=== PATIENT | male | born 1960 | race Caucasian/White ===

== ENCOUNTER 2016-12-02 08:24 | Observation (INO) | payer OTHER ==
[2016-12-02] VITALS (12 sets, daily range): BP systolic 119–136; BP diastolic 76–96
[~2016-12-02] VITALS: Ht 177.8 cm; Wt 56.4 kg
[~2016-12-02 08:24] MED LIST: ASPI-983 PO; ASPI325T32 PO; ATOR80TA76 PO; CLOP75TA28 PO; LISI-556 PO; NAPR-243 PO; OMG1KC PO; PANT40TA3 PO; TRM50T PO
[2016-12-02] MEDS ORDERED: NS IV 1000 ML 1,000 ML IV ONE (08:40)
[2016-12-02 08:45] LABS: BASOPHILS % (AUTO) 0 % (0-10); EOSINOPHILS # (AUTO) 0.4 10^3/uL (0.0-0.3); EOSINOPHILS % (AUTO) 4 % (0-10); LYMPHOCYTES # (AUTO) 1.2 X 10^3 (1.0-4.0); LYMPHOCYTES % (AUTO) 12 % (12-44); MEAN CORPUSCULAR HEMOGLOBIN 31 PG (25-34); MEAN CORPUSCULAR HGB CONC 34 G/DL (32-36); MEAN CORPUSCULAR VOLUME 92 FL (80-99); MEAN PLATELET VOLUME 9.4 FL (7.4-10.4); MONOCYTES # (AUTO) 0.8 X 10^3 (0.0-1.0); MONOCYTES % (AUTO) 7 % (0-12); NEUTROPHILS # (AUTO) 7.8 X 10^3 (1.8-7.8); NEUTROPHILS % (AUTO) 76 % (42-75); PLATELET COUNT 230 10^3/uL (130-400); RED BLOOD COUNT 4.94 10^6/uL (4.35-5.85); RED CELL DISTRIBUTION WIDTH 14.8 % (10.0-14.5); WHITE BLOOD COUNT 10.2 10^3/uL (4.3-11.0)
[2016-12-02] MEDS ORDERED: ASPIRIN 81 MG CHEW (CHILDREN'S ASA) PO ONE (08:45)
[2016-12-02] MEDS ORDERED: RX-NITROGLYCERIN 0.4 MG TAB BTL 25'S SL PRN (08:45)
[2016-12-02] MEDS ORDERED: ONDANSETRON 4 MG/2 ML (SDV) Z0FRAN IVP ONE (08:45)
[2016-12-02 09:02] LABS: INR 0.9 (0.8-1.4); PROTHROMBIN TIME PATIENT 12.2 SEC (12.2-14.7)
--- NOTE | 2016-12-02 09:05 | Diagnostic Imaging Report ---
INDICATION: Patient is having similar symptoms to a year ago when he had a heart attack. Comparison study: Chest from 11/19/2015. FINDINGS: Frontal view of the chest demonstrates the lungs to be clear but hyperinflated. Heart size and vascularity are normal. There are no pleural effusions. A coronary artery stent is in place. IMPRESSION: Hyperinflation. Dictated by: Dictated on workstation # [id number]
[2016-12-02 09:08] LABS: ALANINE AMINOTRANSFERASE 11 U/L (0-55); ALBUMIN 4.7 GM/DL (3.2-4.5); ANION GAP 12 MMOL/L (5-14); ASPARTATE AMINO TRANSFERASE 23 U/L (5-34); BILIRUBIN,TOTAL 0.6 MG/DL (0.1-1.0); BLOOD UREA NITROGEN 13 MG/DL (7-18); BUN/CREATININE RATIO 16; CALCIUM 9.9 MG/DL (8.5-10.1); CARBON DIOXIDE 21 MMOL/L (21-32); CHLORIDE 108 MMOL/L (98-107); CREATININE SERUM 0.83 MG/DL (0.60-1.30); GFR ESTIMATED > 60; GLUCOSE 101 MG/DL (70-105); MAGNESIUM 2.1 MG/DL (1.8-2.4); POTASSIUM 4.5 MMOL/L (3.6-5.0); SODIUM 141 MMOL/L (135-145); TOTAL PROTEIN 8.2 GM/DL (6.4-8.2)
[2016-12-02 09:17] LABS: MYOGLOBIN SERUM 28.4 NG/ML (10.0-92.0)
--- NOTE | 2016-12-02 10:33 | ED Chest Pain ---
General Chief Complaint: Chest Pain Stated Complaint: CHEST PAINS Nursing Triage Note: CHEST PAIN OFF AND ON SINCE FRIDAY, MORE CONSISTENT TODAY FOLLOWED BY CHRISTOFERD THIS AM. Nursing Sepsis Screen: No Definite Risk Source: patient, old records Exam Limitations: no limitations History of Present Illness Time seen by provider: 08:30 Initial Comments This 56-year-old gentleman with known coronary artery disease presents to the emergency room with complaints of left-sided sharp chest pain since last . He can identify no significant exacerbating or alleviating factors other than aspirin seems to improve the pain. This morning he also developed shortness of breath. He also woke this morning with nausea, vomiting, and diarrhea. He rates his chest pain is 8/10 at this time. His reports that he has missed some of his Plavix doses. He admits to missing a couple of doses over the last week. Patient also admits to drinking alcohol daily up to about 6 beers. Patient had a stent placed to the LAD one year ago by Dr. Silveira. He also had stenosis noted in the left circumflex artery. Patient is a smoker. Allergies and Home Medications Allergies Coded Allergies: No Known Drug Allergies (Unverified , 04/14/11) Home Medications Aspirin 81 Mg Tablet., 81 MG PO DAILY, #100 Ref 4 Prescribed by: BENNY SILVEIRA on 11/21/15 0743 Atorvastatin Calcium 80 Mg Tablet, 40 MG PO HS, #30 Ref 4 Prescribed by: BENNY SILVEIRA on 11/21/15 0743 Clopidogrel Bisulfate 75 Mg Tablet, 75 MG PO DAILY, #90 Ref 4 Prescribed by: BENNY SILVEIRA on 11/21/15 0743 Lisinopril 5 Mg Tablet, 5 MG PO DAILY, #30 Ref 4 Prescribed by: BENNY SILVEIRA on 11/21/15 0743 [place] 3 Polyunsat Fatty Acids 1,000 Mg Cap, 1,000 MG PO BID WITH MEALS, #100 Ref 4 Prescribed by: BENNY SILVEIRA on 11/21/15 0743 Pantoprazole Sodium 40 Mg Tablet., 40 MG PO DAILY@0700, #30 Ref 4 Prescribed by: BENNY SILVEIRA on 11/21/15 0743 Review of Systems Constitutional: no symptoms reported EENTM: No Symptoms Reported Respiratory: See HPI Cardiovascular: See HPI Gastrointestinal: See HPI Genitourinary: No Symptoms Reported Musculoskeletal: no symptoms reported Skin: no symptoms reported Psychiatric/Neurological: No Symptoms Reported Endocrine: No Symptoms Reported Past Rhocnmo-Lumjks-Jeoker Hx Patient Social History Alcohol Use: Regular Use Number of Drinks Today: AA Alcohol Beverage of Choice: Beer Recreational Drug Use: No Smoking Status: Current Everyday Smoker Type Used: Cigarettes Recent Foreign Travel: No Contact w/Someone Who Travel: No Recent Infectious Disease Expo: No Recent Hopitalizations: No Seasonal Allergies Seasonal Allergies: No Surgeries History of Surgeries: Yes (teeth) Surgeries: Coronary Stent, Vasectomy Respiratory History of Respiratory Disorde: No Cardiovascular History of Cardiac Disorders: No Neurological History of Neurological Disord: No Genitourinary History of Genitourinary Disor: No Gastrointestinal History of Gastrointestinal Di: No Musculoskeletal History of Musculoskeletal Dis: No Endocrine History of Endocrine Disorders: No Cancer History of Cancer: No Psychosocial History of Psychiatric Problem: No Integumentary History of Skin or Integumenta: No Family Medical History Significant Family History: Heart Disease Physical Exam Vital Signs Vital Sign - Last 12Hours 12/02/16 08:25 Temp 98.0 Pulse 82 Resp 18 B/P (MAP) 139/85 Pulse Ox 100 O2 Delivery Nasal Cannula O2 Flow Rate 2.00 Capillary Refill : Less Than 3 Seconds General Appearance: No Apparent Distress, WD/WN HEENT: PERRL/EOMI, Normal ENT Inspection, Pharynx Normal Neck: Normal Inspection Respiratory: Chest Non Tender, Lungs Clear, Normal Breath Sounds, No Accessory Muscle Use, No Respiratory Distress Cardiovascular: Regular Rate, Rhythm, No Edema, No Murmur, Normal Peripheral Pulses Gastrointestinal: Normal Bowel Sounds, Soft, Tenderness (mild generalized tenderness) Extremity: Normal Inspection, Non Tender, No Calf Tenderness, No Pedal Edema, Other (negative Lisa) Neurologic/Psychiatric: Alert, Oriented x3, No Motor/Sensory Deficits, Normal 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, 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 as 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 Skin: Normal Color, Warm/Dry Progress/Results/Core Measures Results/Orders Lab Results Laboratory Tests Test 12/02/16 08:30 Range/Units White Blood Count 10.2 4.3-11.0 10^3/uL Red Blood Count 4.94 4.35-5.85 10^6/uL Hemoglobin 15.4 13.3-17.7 G/DL Hematocrit 46 40-54 % Mean Corpuscular Volume 92 80-99 FL Mean Corpuscular Hemoglobin 31 25-34 PG Mean Corpuscular Hemoglobin Concent 34 32-36 G/DL Red Cell Distribution Width 14.8 H 10.0-14.5 % Platelet Count 230 130-400 10^3/uL Mean Platelet Volume 9.4 7.4-10.4 FL Neutrophils (%) (Auto) 76 H 42-75 % Lymphocytes (%) (Auto) 12 12-44 % Monocytes (%) (Auto) 7 0-12 % Eosinophils (%) (Auto) 4 0-10 % Basophils (%) (Auto) 0 0-10 % Neutrophils # (Auto) 7.8 1.8-7.8 X 10^3 Lymphocytes # (Auto) 1.2 1.0-4.0 X 10^3 Monocytes # (Auto) 0.8 0.0-1.0 X 10^3 Eosinophils # (Auto) 0.4 H 0.0-0.3 10^3/uL Basophils # (Auto) 0.0 0.0-0.1 10^3/uL Prothrombin Time 12.2 12.2-14.7 SEC INR Comment 0.9 0.8-1.4 Activated Partial Thromboplast Time 27 24-35 SEC Sodium Level 141 135-145 MMOL/L Potassium Level 4.5 3.6-5.0 MMOL/L Chloride Level 108 H 98-107 MMOL/L Carbon Dioxide Level 21 21-32 MMOL/L Anion Gap 12 5-14 MMOL/L Blood Urea Nitrogen 13 7-18 MG/DL Creatinine 0.83 0.60-1.30 MG/DL Estimat Glomerular Filtration Rate > 60 BUN/Creatinine Ratio 16 Glucose Level 101 70-105 MG/DL Calcium Level 9.9 8.5-10.1 MG/DL Magnesium Level 2.1 1.8-2.4 MG/DL Total Bilirubin 0.6 0.1-1.0 MG/DL Aspartate Amino Transf (AST/SGOT) 23 5-34 U/L Alanine Aminotransferase (ALT/SGPT) 11 0-55 U/L Alkaline Phosphatase 49 40-136 U/L Myoglobin 28.4 10.0-92.0 NG/ML Troponin I < 0.30 <0.30 NG/ML Total Protein 8.2 6.4-8.2 GM/DL Albumin 4.7 H 3.2-4.5 GM/DL My Orders Orders - BERRY PALMA MD Cbc With Automated Diff (12/02/16 08:27) Magnesium (12/02/16 08:27) Chest 1 View, Ap/Pa Only (12/02/16 08:27) Ekg Tracing (12/02/16 08:27) Cardiac Profile 1 (12/02/16 08:27) Comprehensive Metabolic Panel (12/02/16 08:27) Myoglobin Serum (12/02/16 08:27) Protime With Inr (12/02/16 08:27) Partial Thromboplastin Time (12/02/16 08:27) O2 (12/02/16 08:27) Monitor-Rhythm Ecg Trace Only (12/02/16 08:27) Lipid Panel (12/03/16 06:00) Saline Lock/Iv-Start (12/02/16 08:27) Aspirin Chewable Tablet (Baby Aspirin Ch (12/02/16 08:45) Rx-Nitroglycerin Sl Tabs (Rx-Nitrostat S (12/02/16 08:45) Ns Iv 1000 Ml (Sodium Chloride 0.9%) (12/02/16 08:40) Ondansetron Injection (Zofran Injectio (12/02/16 08:45) Medications Given in ED Current Medications Medications Dose Ordered Sig/Poly Route Start Time Stop Time Status Last Admin Dose Admin Aspirin 324 mg ONCE ONCE PO 12/02/16 08:45 12/02/16 08:46 DC 12/02/16 08:48 324 MG Nitroglycerin 0.4 mg PRN PRN SL 12/02/16 08:45 12/02/16 09:05 0.4 MG Ondansetron HCl 8 mg ONCE ONCE IVP 12/02/16 08:45 12/02/16 08:46 DC 12/02/16 08:46 8 MG Sodium Chloride 1,000 ml @ 0 mls/hr Q0M ONCE IV 12/02/16 08:40 12/02/16 08:41 DC 12/02/16 08:46 1,000 MLS/HR Vital Signs/I&O Vital Sign - Last 12Hours 12/02/16 12/02/16 08:25 08:31 Temp 98.0 Pulse 82 Resp 18 B/P (MAP) 139/85 Pulse Ox 100 100 O2 Delivery Nasal Cannula Nasal Cannula O2 Flow Rate 2.00 2.00 Blood Pressure Mean: 103 Progress Note : Progress Note Patient's gastric intestinal symptoms were treated with Zofran, Pepcid, and IV fluids. Nitroglycerin was administered for the chest pain which reduced his pain from 8/10 down to 2/10. Patient is being admitted for cardiac rule out and treatment of his gastrointestinal symptoms. Dr. Silveira presented to the emergency room to evaluate him. Aspirin was given in the ER. ECG Initial ECG Impression Date: Dec 02, 2016 Initial ECG Impression Time: 08:30 Initial ECG Rate: 74 Initial ECG Rhythm: Normal Sinus Initial ECG Intervals: Normal Initial ECG Impression: Normal Comment Normal sinus rhythm with no ST elevation or depression. No abnormal intervals or axis deviation. Diagnostic Imaging Diagonstic Imaging: Xray Plain Films/CT/US/NM/MRI: chest Comments Chest x-ray report reviewed. See report below: NAME: ACE ROSENTHAL MED REC#: [id number] PT STATUS: REG ER : 1960 PHYSICIAN: BERRY PALMA MD ADMIT DATE: 12/02/16/ER Draft Date of Exam:12/02/16 CHEST 1 VIEW, AP/PA ONLY INDICATION: Patient is having similar symptoms to a year ago when he had a heart attack. Comparison study: Chest from 11/19/2015. FINDINGS: Frontal view of the chest demonstrates the lungs to be clear but hyperinflated. Heart size and vascularity are normal. There are no pleural effusions. A coronary artery stent is in place. IMPRESSION: Hyperinflation. Dictated on workstation # [id number] Dict: 12/02/16 0903 Trans: 12/02/16 0905 [id number] Interpreted by: KAYLA HARMON MD Departure Communication (Admissions) Time/Spoke to Admitting Phy: 10:[address] Perez Time/Spoke to Consulting Phy: 10:20 Communication/Consulting Dr. Silveira Impression Impression: Primary Impression: Chest pain Qualified Codes: R07.9 - Chest pain, unspecified Additional Impressions: Coronary artery disease Qualified Codes: I25.10 - Atherosclerotic heart disease of [place] coronary artery without angina pectoris Nausea vomiting and diarrhea Alcohol dependence Qualified Codes: F10.29 - Alcohol dependence with unspecified alcohol-induced disorder Disposition: ADMITTED INPATIENT Condition: Improved Admissions Decision to Admit Reason: Admit from ER (General) Decision to Admit/Date: Dec 02, 2016 Time/Decision to Admit Time: 08:35 Departure-Patient Inst. Referrals: NO,LOCAL PHYSICIAN (PCP/Family) Primary Care Physician BERRY PALMA MD Dec 02, 2016 10:33
--- NOTE | 2016-12-02 10:44 | Consultation-Cardiology ---
HPI-Cardiology Cardiology Consultation Date of Consultation 12/02/16 Date of Admission Time Seen by Provider: 10:40 Indication: chest pain HPI 56 years old gentleman with history of coronary artery disease, had a STEMI in November 2015 with long stent to the LAD, moderate coronary artery disease otherwise. Did not follow-up since November 2015. Was in his usual state of health until last week when he started having recurrent episodes of chest pain, described it as dull in nature on the left side of his chest waxing and waning, continue to get worse until yesterday become more worse associated with nausea and vomiting, shortness of breath and diarrhea. No abdominal pain. At night he woke up with chest pain which was more significant but reported that it did not radiate to the left arm. Patient came into the emergency room and given sublingual nitroglycerin which relieved the pain. He is currently laying down in bed, feeling better. Home Medications & Allergies Allergies: Coded Allergies: No Known Drug Allergies (Unverified , 04/14/11) Home Medication List Reviewed: Yes VGB-Mxprwp-Qoktgo Hx Patient Social History Marital Status: Employed/Student: employed Alcohol Use: Regular Use Recreational Drug Use: No Smoking Status: Current Everyday Smoker Type Used: Cigarettes Recent Foreign Travel: No Recent Infectious Disease Expo: No Recent Hopitalizations: No Past Medical History Past medical history as discussed below Family Medical History Family Medical Hx Strong family history of heart disease Constitutional: see HPI, malaise EENTM: see HPI, no symptoms reported Respiratory: see HPI, No cough, No dyspnea on exertion, No hemoptysis, No orthopnea, No phlegm, short of breath, No stridor, No wheezing, No other Cardiovascular: see HPI, chest pain, No edema, No Hx of Intervention, No palpitations, No syncope, No vascular heart diseas, No other Gastrointestinal: RLQ, see HPI, No abdominal pain, No constipation, diarrhea, No dysphagia, No hematemesis, No heartburn, No jaundice, No loss of appetite, No melena, nausea, vomiting, No other Genitourinary: no symptoms reported, see HPI Musculoskeletal: no symptoms reported, see HPI Skin: no symptoms reported, see HPI Psychiatric/Neurological: No Symptoms Reported, See HPI Reviewed Test Results Reviewed Test Results Lab Laboratory Tests Test 12/02/16 08:30 Range/Units White Blood Count 10.2 4.3-11.0 10^3/uL Red Blood Count 4.94 4.35-5.85 10^6/uL Hemoglobin 15.4 13.3-17.7 G/DL Hematocrit 46 40-54 % Mean Corpuscular Volume 92 80-99 FL Mean Corpuscular Hemoglobin 31 25-34 PG Mean Corpuscular Hemoglobin Concent 34 32-36 G/DL Red Cell Distribution Width 14.8 H 10.0-14.5 % Platelet Count 230 130-400 10^3/uL Mean Platelet Volume 9.4 7.4-10.4 FL Neutrophils (%) (Auto) 76 H 42-75 % Lymphocytes (%) (Auto) 12 12-44 % Monocytes (%) (Auto) 7 0-12 % Eosinophils (%) (Auto) 4 0-10 % Basophils (%) (Auto) 0 0-10 % Neutrophils # (Auto) 7.8 1.8-7.8 X 10^3 Lymphocytes # (Auto) 1.2 1.0-4.0 X 10^3 Monocytes # (Auto) 0.8 0.0-1.0 X 10^3 Eosinophils # (Auto) 0.4 H 0.0-0.3 10^3/uL Basophils # (Auto) 0.0 0.0-0.1 10^3/uL Prothrombin Time 12.2 12.2-14.7 SEC INR Comment 0.9 0.8-1.4 Activated Partial Thromboplast Time 27 24-35 SEC Sodium Level 141 135-145 MMOL/L Potassium Level 4.5 3.6-5.0 MMOL/L Chloride Level 108 H 98-107 MMOL/L Carbon Dioxide Level 21 21-32 MMOL/L Anion Gap 12 5-14 MMOL/L Blood Urea Nitrogen 13 7-18 MG/DL Creatinine 0.83 0.60-1.30 MG/DL Estimat Glomerular Filtration Rate > 60 BUN/Creatinine Ratio 16 Glucose Level 101 70-105 MG/DL Calcium Level 9.9 8.5-10.1 MG/DL Magnesium Level 2.1 1.8-2.4 MG/DL Total Bilirubin 0.6 0.1-1.0 MG/DL Aspartate Amino Transf (AST/SGOT) 23 5-34 U/L Alanine Aminotransferase (ALT/SGPT) 11 0-55 U/L Alkaline Phosphatase 49 40-136 U/L Myoglobin 28.4 10.0-92.0 NG/ML Troponin I < 0.30 <0.30 NG/ML Total Protein 8.2 6.4-8.2 GM/DL Albumin 4.7 H 3.2-4.5 GM/DL Physical Exam Vital Signs Vital Sign - Last 12Hours 12/02/16 08:25 Temp 98.0 Pulse 82 Resp 18 B/P (MAP) 139/85 Pulse Ox 100 O2 Delivery Nasal Cannula O2 Flow Rate 2.00 Capillary Refill : Less Than 3 Seconds General Appearance: WD/WN, Mild Distress Eyes: Bilateral Eye Normal Inspection, Bilateral Eye PERRL, Bilateral Eye EOMI HEENT: PERRL/EOMI, TMs Normal, Normal ENT Inspection, Pharynx Normal Neck: Full Range of Motion, Normal Inspection, Non Tender, Supple, Carotid Bruit Respiratory: Chest Non Tender, Lungs Clear, Normal Breath Sounds, No Accessory Muscle Use, No Respiratory Distress Cardiovascular: Regular Rate, Rhythm, No Edema, No Gallop, No JVD, No Murmur, Normal Peripheral Pulses Gastrointestinal: Normal Bowel Sounds, No Organomegaly, No Pulsatile Mass, Non Tender, Soft Back: Normal Inspection, No CVA Tenderness, No Vertebral Tenderness Extremity: Normal Capillary Refill, Normal Inspection, Normal Range of Motion, Non Tender, No Calf Tenderness, No Pedal Edema Neurologic/Psychiatric: Alert, Oriented x3, No Motor/Sensory Deficits, Normal Mood/Affect Skin: Normal Color, Warm/Dry Lymphatic: No Adenopathy A/P-Cardiology Admission Diagnosis Chest pain Gastroenteritis Coronary artery disease Tobaccoism Assessment/Plan Chest pain, unstable angina, improved after some lingual nitroglycerin, EKG and cardiac enzymes did not show any acute abnormality, I will monitor overnight, monitor serial enzymes and planning to proceed with stress test in the morning. Nausea vomiting, diarrhea, gastroenteritis. We'll start IV fluid and monitor. Coronary artery disease, acute myocardial infarction with ST elevation in the anterior wall on November 19, 2015. Underwent emergency cardiac catheterization revealing subtotal occlusion at the long segment of the LAD. Stent deployment using Promus Premier 2.5 x 36 mm stent. 50 percent LAD stenosis, 40-50 percent mid left main coronary artery stenosis, nonobstructive disease. 50-60 percent stenosis mid left circumflex artery, mild disease in the RCA. Maintained on Plavix and aspirin, planning to stop Plavix if his stress test is negative Bradycardia, secondary to beta blockers, improved after discontinuing metoprolol. Cannot tolerate beta julius secondary to bradycardia. Tobaccoism, educated on the importance of smoking cessation Alcoholism, educated on limiting alcohol intake Strong family history of coronary artery disease Hyperlipidemia, monitor lipids BENNY SELLERS MD Dec 02, 2016 10:44
[2016-12-02] MEDS ORDERED: NS IV 1000 ML 1,000 ML IV SCH (10:45)
[2016-12-02] MEDS ORDERED: LORazepam 1 MG (ATIVAN) TAB PO PRN (12:45)
[2016-12-02] MEDS ORDERED: morphine INJ 4 MG/ML 1 ML (VIAL/SYRINGE) IV PRN (12:45)
[2016-12-02] MEDS ORDERED: D5 1/2 NS 1000 ML IV SOLUTION 1,000 ML IV SCH (12:45)
[2016-12-02] MEDS ORDERED: SENNA W/DOCUSATE (SENOKOT S) TABLET PO PRN (12:45)
[2016-12-02] MEDS ORDERED: LORazepam INJ 2 MG/ML (ATIVAN) VIAL IM/IV PRN (12:45)
[2016-12-02] MEDS ORDERED: LORazepam INJ 2 MG/ML (ATIVAN) VIAL IV PRN (12:45)
[2016-12-02] MEDS ORDERED: ONDANSETRON 4 MG (ZOFRAN) ORAL DISSOLVE TAB SL PRN (12:45)
[2016-12-02] MEDS ORDERED: ONDANSETRON 4 MG/2 ML (SDV) Z0FRAN IV PRN ×2 (12:45)
[2016-12-02] MEDS ORDERED: D5 1/2 NS 1000 ML IV SOLUTION 1,000 ML IV PRN (12:45)
[2016-12-02] MEDS ORDERED: NITROGLYCERIN SUBLINGUAL 0.4 MG TAB (NITROSTAT) SL PRN (12:45)
[2016-12-02] MEDS ORDERED: CATHETER FLUSH 10 ML SYR IV PRN (12:45)
[2016-12-02] MEDS ORDERED: ANTACID SUSP 30 ML UDC (MYLANTA) PO PRN (12:45)
[2016-12-02] MEDS ORDERED: CLOP75TA69 PO (13:53)
[2016-12-02] MEDS ORDERED: ATOR80TA76 PO (13:53)
[2016-12-02] MEDS ORDERED: OMG1KC PO (13:53)
[2016-12-02] MEDS ORDERED: ASPI-983 PO (13:53)
[2016-12-02] MEDS ORDERED: LISI-556 PO (13:53)
[2016-12-02] MEDS: NS IV 1000 ML 1,000 ML IV SCH (14:35)
--- NOTE | 2016-12-02 19:03 | History & Physicial ---
History of Present Illness History of Present Illness Reason for visit/HPI I felt that was having of a heart attack. Patient complained of chest pain left side of chest.. Patient had a heart attack November 06 Patient had a stent put in . Patient previously had ST elevated CA. Patient has history of tobacco use. Patient drinks 6 pack a day area Father had history of heart disease and mother with lung both . Patient in the left shoulder vomiting and diarrhea with the chest pain like he had with his last heart attack one year ago Date of Admission Dec 02, 2016 at 10:30 Time Seen by Provider: 07:00 I consulted on this patient on 12/02/16 18:58 Attending Physician Rudy Ibarra DO Admitting Physician No,Local Physician Consult Allergies and Home Medications Allergies Coded Allergies: No Known Drug Allergies (Unverified , 04/14/11) Home Medications Aspirin 81 Mg Tablet.dr, 81 MG PO DAILY, (Reported) Atorvastatin Calcium 80 Mg Tablet, 40 MG PO HS, (Reported) LAST FILLED #30 09-01-16 TAKES 1/2 (80MG) TABLET Clopidogrel Bisulfate 75 Mg Tablet, 75 MG PO DAILY, (Reported) LAST FILLED #30 10-03-16 Lisinopril 5 Mg Tablet, 5 MG PO DAILY, (Reported) LAST FILLED 30 10-03-16 [place] 3 Polyunsat Fatty Acids 1,000 Mg Cap, 1,000 MG PO HS, (Reported) Past Mabhdci-Twpkre-Ddgjvj Hx Patient Social History Marrital Status: Employed/Student: employed Alcohol Use: Regular Use Number of Drinks Today: 0 Alcohol Beverage of Choice: Beer Recreational Drug Use: No Smoking Status: Current Everyday Smoker Type Used: Cigarettes Physical Abuse Screen: No Sexual Abuse: No Recent Foreign Travel: No Contact w/other who traveled: No Recent Hopitalizations: Yes Recent Infectious Disease Expo: No Immunizations Up To Date Pediatric: Yes Seasonal Allergies Seasonal Allergies: No Surgeries No Coronary Stent, Vasectomy Respiratory No Cardiovascular Yes High Cholesterol Neurological No Genitourinary Yes Prostate Problems Gastrointestinal No Musculoskeletal No Endocrine History of Endocrine Disorders: No HEENT History of HEENT Disorders: No Cancer No Psychosocial History of Psychiatric Problem: No Integumentary History of Skin or Integumenta: No Blood Transfusions History of Blood Disorders: No Adverse Reaction to a Blood Tr: No Family Medical History Significant Family History: Heart Disease Constitutional: no symptoms reported EENTM: no symptoms reported Respiratory: cough Cardiovascular: no symptoms reported Gastrointestinal: no symptoms reported Genitourinary: no symptoms reported Physical Exam Vital Signs Vital Sign - Last 12Hours Capillary Refill : Less Than 3 Seconds General Appearance: No Apparent Distress, Thin Eyes: Bilateral Eye Normal Inspection HEENT: Normal ENT Inspection Neck: Full Range of Motion, Normal Inspection, Non Tender Respiratory: Chest Non Tender, No Accessory Muscle Use, No Respiratory Distress , Decreased Breath Sounds Cardiovascular: Regular Rate, Rhythm, No Murmur Gastrointestinal: Non Tender, Soft Assessment/Plan Assessment and Plan chest pain. Nausea and vomiting and diarrhea. Coronary artery disease. Previous myocardial infarction. Tobacco usage. Alcoholism. Noncompliance with medicines Problems: Clinical Quality Measures AMI/AHF: ASA po Prior to arrival: No DVT/VTE Risk/Contraindication: Risk Factor Score Per Nursin RFS Level Per Nursing on Admit: 2=Moderate RUDY IBARRA DO Dec 02, 2016 19:03
[2016-12-02] MEDS: NICOTINE 21 MG (NICODERM) PATCH TD SCH (19:51)
[2016-12-02] MEDS ORDERED: OMEGA 3 (FISH OIL) 1000 MG CAP PO SCH (21:00)
[2016-12-02] MEDS ORDERED: ATORVASTATIN 80 MG (LIPITOR) TABLET PO SCH (21:00)
[2016-12-02] MEDS: FAMOTIDINE 20MG/2ML IV (PEPCID) IV SCH (21:37)
[2016-12-02] MEDS: MAGNESIUM OXIDE (MAG-OX)400 MG TAB PO SCH (21:38)
[2016-12-03] VITALS (19 sets, daily range): BP systolic 107–193; BP diastolic 59–97
[2016-12-03 04:16] LABS: MEAN PLATELET VOLUME 9.9 FL (7.4-10.4); RED BLOOD COUNT 4.17 10^6/uL (4.35-5.85); RED CELL DISTRIBUTION WIDTH 14.3 % (10.0-14.5); WHITE BLOOD COUNT 5.5 10^3/uL (4.3-11.0)
[2016-12-03 04:45] LABS: ALANINE AMINOTRANSFERASE 9 U/L (0-55); ALBUMIN 3.8 GM/DL (3.2-4.5); ANION GAP 9 MMOL/L (5-14); ASPARTATE AMINO TRANSFERASE 19 U/L (5-34); BILIRUBIN,TOTAL 0.6 MG/DL (0.1-1.0); BLOOD UREA NITROGEN 10 MG/DL (7-18); BUN/CREATININE RATIO 14; CALCIUM 8.8 MG/DL (8.5-10.1); CARBON DIOXIDE 21 MMOL/L (21-32); CHLORIDE 108 MMOL/L (98-107); CHOLESTEROL 159 MG/DL (< 200); DIRECT LDL 73 MG/DL (1-129); GFR ESTIMATED > 60; GLUCOSE 89 MG/DL (70-105); SODIUM 138 MMOL/L (135-145); TOTAL PROTEIN 6.4 GM/DL (6.4-8.2); TRIGLYCERIDES 99 MG/DL (<150); VLDL CHOLESTEROL 20 MG/DL (5-40)
[2016-12-03 04:50] LABS: TROPONIN I < 0.30 NG/ML (<0.30)
[2016-12-03] MEDS ORDERED: MULTIVIT W/MINERALS TAB (THERAGRAN M) PO SCH (07:00)
[2016-12-03] MEDS ORDERED: THIAMINE 100 MG (VITAMIN B-1) TAB PO SCH (07:00)
--- NOTE | 2016-12-03 07:40 | Progress Note (SOAP) ---
Subjective Time Seen by Provider: 07:20 Subjective/Events-last exam patient feeling better this morning. To have stress test today. Patient's chest pain only 01 this morning. Patient did not have a good night sleep. Patient's diarrhea finally. better. Chest pain. Nausea and vomiting. Coronary artery disease. Objective Exam Vital Signs Date Time Temp Pulse Resp B/P (MAP) Pulse Ox O2 Delivery O2 Flow Rate FiO2 12/03/16 06:00 61 17 107/59 98 Room Air 12/03/16 05:00 56 16 124/77 98 Room Air 12/03/16 04:00 66 22 126/81 98 Room Air 12/03/16 04:00 98 12/03/16 03:00 64 16 120/81 98 Room Air 12/03/16 02:00 78 30 117/85 98 Room Air 12/03/16 01:00 75 31 134/95 96 Room Air 12/03/16 01:00 75 12/03/16 00:00 65 27 127/84 98 Room Air 12/03/16 00:00 98 12/02/16 23:00 64 19 122/80 98 Room Air 12/02/16 22:00 62 28 131/83 99 Room Air 12/02/16 21:00 Room Air 12/02/16 21:00 64 21 119/79 99 Room Air 12/02/16 20:00 98 12/02/16 20:00 67 21 136/86 99 Room Air 12/02/16 19:00 63 8 124/81 98 Room Air 12/02/16 19:00 63 12/02/16 18:00 74 9 120/96 99 Room Air 12/02/16 17:30 69 18 128/95 97 Room Air 12/02/16 16:00 98 12/02/16 16:00 99.9 75 15 133/81 98 Room Air 12/02/16 15:30 80 9 132/83 100 Room Air 12/02/16 15:08 Room Air 12/02/16 14:30 71 27 130/88 100 Room Air 12/02/16 13:30 64 13 126/76 12/02/16 12:45 97.1 64 17 136/77 100 Room Air 12/02/16 12:00 62 16 99 2.00 12/02/16 08:31 100 Nasal Cannula 2.00 12/02/16 08:25 Nasal Cannula 2.0 12/02/16 08:25 98.0 82 18 139/85 100 Nasal Cannula 2.00 Capillary Refill : Less Than 3 Seconds General Appearance: No Apparent Distress, Thin HEENT: Normal ENT Inspection Neck: Full Range of Motion, Normal Inspection Respiratory: Chest Non Tender, No Accessory Muscle Use, No Respiratory Distress , Decreased Breath Sounds Cardiovascular: Regular Rate, Rhythm Results Lab Laboratory Tests 12/02/16 08:30 12/03/16 03:48 Laboratory Tests 12/02/16 08:30: White Blood Count 10.2, Red Blood Count 4.94, Hemoglobin 15.4, Hematocrit 46, Mean Corpuscular Volume 92, Mean Corpuscular Hemoglobin 31, Mean Corpuscular Hemoglobin Concent 34, Red Cell Distribution Width 14.8H, Platelet Count 230, Mean Platelet Volume 9.4, Neutrophils (%) (Auto) 76H, Lymphocytes (%) (Auto) 12 , Monocytes (%) (Auto) 7, Eosinophils (%) (Auto) 4, Basophils (%) (Auto) 0, Neutrophils # (Auto) 7.8, Lymphocytes # (Auto) 1.2, Monocytes # (Auto) 0.8, Eosinophils # (Auto) 0.4H, Basophils # (Auto) 0.0, Prothrombin Time 12.2, INR Comment 0.9, Activated Partial Thromboplast Time 27, Sodium Level 141, Potassium Level 4.5, Chloride Level 108H, Carbon Dioxide Level 21, Anion Gap 12 , Blood Urea Nitrogen 13, Creatinine 0.83, Estimat Glomerular Filtration Rate > 60, BUN/Creatinine Ratio 16, Glucose Level 101, Calcium Level 9.9, Magnesium Level 2.1, Total Bilirubin 0.6, Aspartate Amino Transf (AST/SGOT) 23, Alanine Aminotransferase (ALT/SGPT) 11, Alkaline Phosphatase 49, Myoglobin 28.4, Troponin I < 0.30, Total Protein 8.2, Albumin 4.7H 12/02/16 14:40: Troponin I < 0.30 12/03/16 03:48: White Blood Count 5.5, Red Blood Count 4.17L, Hemoglobin 13.2L, Hematocrit 39L, Mean Corpuscular Volume 92, Mean Corpuscular Hemoglobin 32, Mean Corpuscular Hemoglobin Concent 34, Red Cell Distribution Width 14.3, Platelet Count 186, Mean Platelet Volume 9.9, Sodium Level 138, Potassium Level 4.0, Chloride Level 108H, Carbon Dioxide Level 21, Anion Gap 9, Blood Urea Nitrogen 10, Creatinine 0.70, Estimat Glomerular Filtration Rate > 60, BUN/Creatinine Ratio 14, Glucose Level 89, Calcium Level 8.8, Total Bilirubin 0.6, Aspartate Amino Transf (AST/ SGOT) 19, Alanine Aminotransferase (ALT/SGPT) 9, Alkaline Phosphatase 45, Troponin I < 0.30, Total Protein 6.4, Albumin 3.8, Triglycerides Level 99, Cholesterol Level 159, LDL Cholesterol Direct 73, VLDL Cholesterol 20, HDL Cholesterol 72H Assessment/Plan Assessment/Plan Assess & Plan/Chief Complaint chest pain. Noncompliance with Plavix. Tobaccoism. Nausea and vomiting and diarrhea. Hyperlipidemia Clinical Quality Measures AMI/AHF: ASA po Prior to arrival: No DVT/VTE Risk/Contraindication: Risk Factor Score Per Nursin RFS Level Per Nursing on Admit: 2=Moderate Contraindications-Pharm: Other *list below* JEFFERSON IBARRA DO Dec 03, 2016 07:40
[2016-12-03] MEDS: NS IV 1000 ML 1,000 ML IV SCH (08:18)
[2016-12-03] MEDS ORDERED: FOLIC ACID 1 MG TAB PO SCH (09:00)
[2016-12-03] MEDS ORDERED: ASPIRIN E.C. 81 MG (ECOTRIN) TAB PO SCH ×2 (09:00)
[2016-12-03] MEDS ORDERED: lisINopril 5 MG (PRINIVIL) TABLET PO SCH (09:00)
[2016-12-03] MEDS ORDERED: CLOPIDOGREL 75 MG (PLAVIX) TABLET PO SCH (09:00)
[2016-12-03] MEDS ORDERED: NICOTINE 21 MG (NICODERM) PATCH TD SCH (09:00)
[2016-12-03] MEDS: MAGNESIUM OXIDE (MAG-OX)400 MG TAB PO SCH (09:35)
[2016-12-03] MEDS: NICOTINE 21 MG (NICODERM) PATCH TD SCH (09:35)
[2016-12-03] MEDS: FAMOTIDINE 20MG/2ML IV (PEPCID) IV SCH (09:35)
--- NOTE | 2016-12-03 12:06 | Cardiology Progress Note ---
Subjective Date Seen by Provider: Dec 03, 2016 Time Seen by Provider: 12:06 Subjective/Events-last exam patient is feeling better, still having some abdominal discomfort and diarrhea, denied any chest pain, underwent stress test and showed no ischemia or infarction, discussed management plan with the patient and with Dr. Perez, he is requesting to go home and Dr. Perez agree with the plan Review of Systems General: No Chills, No Night Sweats, No Fatigue, No Malaise, No Appetite, No Other HEENT: No Head Aches, No Visual Changes, No Eye Pain, No Ear Pain, No Dysphasia , No Sinus Congestion, No Post Nasal Drip, No Sore Throat, No Other Pulmonary: No Dyspnea, No Cough, No Pleuritic Chest Pain, No Other Cardiovascular: No: Chest Pain, Palpitations, Orthopnea, Paroxysmal Noc. Dyspnea, Edema, Lt Headedness, Other Objective-Cardiology Exam Last Set of Vital Signs Vital Signs 12/02/16 12/03/16 12/03/16 12:00 11:57 11:58 Temp 98.6 Pulse 58 Resp 17 B/P (MAP) 135/87 Pulse Ox 98 O2 Delivery Room Air O2 Flow Rate 2.00 Capillary Refill : Less Than 3 Seconds I&O Intake and Output 12/04/16 00:00 Intake Total 400 ml Output Total 225 ml Balance 175 ml Intake Oral 400 ml Output Urine Total 225 ml # Voids 3 # Bowel Movements 3 General: Alert, Oriented X3, Cooperative HEENT: Atraumatic, PERRLA Neck: Supple, No JVD, No Thyromegaly Lungs: Clear to Auscultation, Normal Air Movement Heart: Regular Rate, Normal S1, Normal S2, No Murmurs Abdomen: Normal Bowel Sounds, Soft, No Tenderness, No Hepatosplenomegaly, No Masses Extremities: No Clubbing, No Cyanosis, No Edema, Normal Pulses, No Tenderness/ Swelling Skin: No Rashes, No Breakdown, No Significant Lesion Neuro: Normal Gait, Normal Speech, Strength at 5/5 X4 Ext, Normal Tone, Sensation Intact Psych/Mental Status: Mental Status NL, Mood NL Results Lab Laboratory Tests 12/03/16 03:48 A/P-Cardiology Admission Diagnosis Chest pain Gastroenteritis Coronary artery disease Tobaccoism Assessment/Plan Chest pain, nonspecific etiology, improved after some lingual nitroglycerin, EKG and cardiac enzymes did not show any acute abnormality, stress test did not show any ischemia or infarction. He is feeling better, chest pain is better Nausea vomiting, diarrhea, gastroenteritis, reporting some improvement, stool for C. difficile is negative. Discussed with Dr. Perez, he will go home and follow-up as an outpatient, I will hold Lipitor for now Coronary artery disease, acute myocardial infarction with ST elevation in the anterior wall on November 19, 2015. Underwent emergency cardiac catheterization revealing subtotal occlusion at the long segment of the LAD. Stent deployment using Promus Premier 2.5 x 36 mm stent. 50 percent LAD stenosis, 40-50 percent mid left main coronary artery stenosis, nonobstructive disease. 50-60 percent stenosis mid left circumflex artery, mild disease in the RCA. I will discontinue Plavix and continue on aspirin Bradycardia, secondary to beta blockers, improved after discontinuing metoprolol. Cannot tolerate beta julius secondary to bradycardia. Tobaccoism, educated on the importance of smoking cessation Alcoholism, educated on limiting alcohol intake Strong family history of coronary artery disease Hyperlipidemia, monitor lipids Clinical Quality Measures AMI/AHF: ASA po Prior to arrival: No DVT/VTE Risk/Contraindication: Risk Factor Score Per Nursin RFS Level Per Nursing on Admit: 2=Moderate Contraindications-Pharm: Other *list below* BENNY SELLERS MD Dec 03, 2016 12:06
--- NOTE | 2016-12-03 12:10 | Clinic Account Progress/Dx ---
Clinic Account Progress/Dx DIAGNOSIS: Date Seen by Provider: Dec 03, 2016 Time Seen by Provider: 12:10 Diagnosis Chest pain Gastroenteritis Coronary artery disease Tobaccoism BENNY SELLERS MD Dec 03, 2016 12:10
--- NOTE | 2016-12-03 14:27 | STRESS TEST ---
DATE OF SERVICE: 12/03/2016 EXERCISE MYOVIEW STRESS TEST REPORT REFERRING PHYSICIAN: Dr. Perez. Baseline heart rate is 71. Baseline blood pressure 130/84. Baseline EKG, sinus rhythm with no ischemic changes. SUMMARY: The patient was injected with 9.80 mCi of technetium-99 Myoview and the resting images were obtained. Then, the patient started exercising with the baseline heart rate, blood pressure and EKG mentioned above. At minute 5 and 40 seconds, the patient was injected with 32.2 mCi of technetium-99 Myoview. He was able to finish a total of 6 minutes and 45 seconds on standard Aneudy protocol achieving maximum heart rate of 147, which is 90% of maximum expected heart rate. With peak exercise level, blood pressure was 193/84. EKG was showing minimal [address] depression in II, III and aVF. During recovery, heart rate and blood pressure returned to baseline. EKG returned to baseline. The resting and stressed images were reviewed and compared in the short axis, horizontal long axis and vertical long axis views. Review of the images showed diaphragmatic attenuation with typical male pattern. There is no significant ischemia or infarction on SPECT images. SSS is zero. TID value 0.95. On the gated images, the left ventricle appeared to be in normal size with normal contractility, calculated ejection fraction 55%. CONCLUSION: 1. Good exercise tolerance, a total of 6 minutes and 45 seconds on standard Aneudy protocol, total of 8.1 METs, achieving 90% of maximum expected heart rate. 2. Appropriate heart rate with hypertensive response to exercise, returned to baseline during recovery. 3. Minimal nondiagnostic EKG changes with exercise, returned to baseline during recovery. 4. Diaphragmatic attenuation with typical male pattern. No significant ischemia or infarction on SPECT images. 5. Normal left ventricular size with normal contractility, calculated ejection fraction 50%. Job ID: [id number] DocumentID: [id number] Dictated Date: 12/03/2016 11:50:05 [employer] Optics Supervisor Date: 12/03/2016 12:49:39 Dictated By: BENNY SELLERS MD
[2016-12-03] MEDS ORDERED: FAMOTIDINE 20 MG (PEPCID) TABLET PO SCH (21:00)
[2016-12-04] MEDS ORDERED: NICOTINE PATCH REMOVAL TP SCH (08:59)
== END 2016-12-03 12:08 | disposition home or self-care (01) ==
LOC: EDUNIT# 08:24 → ER 08:27 → ICU 10:30 → UNDOADMOB 10:30 → ICU 12:45
PROVIDERS: ADMIT Family Medicine; ATTEND Family Medicine
DX: R07.9 Chest pain, unspecified (principal); R11.2 Nausea with vomiting, unspecified; R19.7 Diarrhea, unspecified; I25.10 Atherosclerotic heart disease of native coronary artery without angina pectoris; I25.2 Old myocardial infarction; F10.20 Alcohol dependence, uncomplicated; F17.210 Nicotine dependence, cigarettes, uncomplicated; Z79.82 Long term (current) use of aspirin; Z79.899 Other long term (current) drug therapy; Z79.02 Long term (current) use of antithrombotics/antiplatelets; Z95.5 Presence of coronary angioplasty implant and graft
CPT/HCPCS: 36415; 71010; 78452; 80053; 80061; 83735; 83874; 84484; 85025; 85027; 85610; 85730; 87324; 87449; 93005; 93017; 93041; 96374

== ENCOUNTER 2021-05-08 11:31 | Emergency (ER) | payer SELFPAY ==
[~2021-05-08 11:31] MED LIST changes: +ASPI-1238 PO; -ASPI-983 PO; +CLOP75TA69 PO; -LISI-556 PO; +LISI5TAB20 PO; -PANT40TA3 PO; +PANT40TA52 PO
== END 2021-05-08 11:50 | disposition left against medical advice (07) ==
LOC: EDUNIT# 11:31 → ER 11:33
DX: R06.02 Shortness of breath (principal)

== ENCOUNTER 2021-06-05 01:38 | Emergency (ER) | payer SELFPAY ==
[~2021-06-05] VITALS: Ht 177.8 cm; Wt 59.4 kg
[2021-06-05] MEDS ORDERED: RT-ALBUTEROL/IPRATROPIUM 3 ML (DUONEB) VIAL ONE (01:50)
[2021-06-05 01:59] LABS: BASOPHILS # (AUTO) 0.1 10^3/uL (0.0-0.1); BASOPHILS % (AUTO) 1 % (0-10); EOSINOPHILS # (AUTO) 0.1 10^3/uL (0.0-0.3); EOSINOPHILS % (AUTO) 1 % (0-10); HEMATOCRIT 29 % (40-54); HEMOGLOBIN 8.6 g/dL (13.3-17.7); LYMPHOCYTES # (AUTO) 2.1 10^3/uL (1.0-4.0); LYMPHOCYTES % (AUTO) 20 % (12-44); MEAN CORPUSCULAR HEMOGLOBIN 26 pg (25-34); MEAN CORPUSCULAR HGB CONC 30 g/dL (32-36); MEAN CORPUSCULAR VOLUME 88 fL (80-99); MEAN PLATELET VOLUME 9.2 fL (9.0-12.2); MONOCYTES # (AUTO) 0.8 10^3/uL (0.0-1.0); MONOCYTES % (AUTO) 8 % (0-12); NEUTROPHILS # (AUTO) 7.3 10^3/uL (1.8-7.8); NEUTROPHILS % (AUTO) 69 % (42-75); PLATELET COUNT 414 10^3/uL (130-400); WHITE BLOOD COUNT 10.6 10^3/uL (4.3-11.0)
[2021-06-05] MEDS ORDERED: RT-ALBUTEROL/IPRATROPIUM 3 ML (DUONEB) VIAL INH ONE (02:00)
[2021-06-05] MEDS ORDERED: FUROSEMIDE 40 MG/4 ML INJ (LASIX) IVP ONE (02:00)
[2021-06-05 02:05] LABS: ALBUMIN 3.8 GM/DL (3.2-4.5); INR 0.9 (0.8-1.4); POTASSIUM 5.9 MMOL/L (3.6-5.0); PROTHROMBIN TIME PATIENT 12.7 SEC (12.2-14.7)
[2021-06-05 02:06] LABS: CALCIUM 8.8 MG/DL (8.5-10.1)
[2021-06-05 02:07] LABS: TOTAL PROTEIN 7.6 GM/DL (6.4-8.2)
[2021-06-05 02:09] LABS: BILIRUBIN,TOTAL 0.3 MG/DL (0.1-1.0)
[2021-06-05 02:11] LABS: CREATININE SERUM 6.77 MG/DL (0.60-1.30)
--- NOTE | 2021-06-05 02:14 | ED Respiratory ---
General Chief Complaint: Respiratory Problems Stated Complaint: SOB Nursing Triage Note: PT TO ROOM BY EMS ON NONREBREATHER. PT RECEIVED NEW DIALYSIS [facility] TODAY AT [facility]. PT STATES HE BECAME SHORT OF BREATH THIS EVENING AT HOME Source: patient, EMS Exam Limitations: no limitations (DANI ANAND) History of Present Illness Date Seen by Provider: Jun 05, 2021 Time Seen by Provider: 01:45 Initial Comments The patient presents the ER by EMS from home with chief complaint of shortness of air, oxygen saturation 80% on room air on arrival. He does not use oxygen at baseline. EMS put him on a nonrebreather and got him to the low 90s. He is on hemodialysis Friday, and Friday states that they took 2 L off last time. He is due sometime this morning for dialysis. He feels like he is in fluid overload. He does not wear CPAP at night to sleep. No history of COPD but he does have a history of CABG with heart attack 2 to 3 months ago. He recently got a shunt placed on his left arm to do dialysis. No chest pain nausea vomiting diarrhea. EMS notes his blood pressure was 220s over 120. Patient states he had COVID-19 at the beginning of May. No productive cough fever chills nausea or vomiting. He was prescribed an inhaler but has not started it yet. (DANI ANAND) Allergies and Home Medications Allergies Coded Allergies: No Known Drug Allergies (Unverified , 04/14/11) Patient Home Medication List Home Medication List Reviewed: Yes (DANI ANAND) Aspirin (Aspirin EC) 81 Mg Tablet.dr, 81 MG PO DAILY, (Reported) Entered as Reported by: JALEESA GODWIN on 12/02/16 135 Lisinopril (Lisinopril) 5 Mg Tablet, 5 MG PO DAILY, (Reported) Entered as Reported by: JALEESA GODWIN on 12/02/16 1356 Review of Systems Review of Systems Constitutional: No chills, No fever, No malaise EENTM: No ear pain, No eye pain Respiratory: No cough; short of breath, wheezing Cardiovascular: No chest pain; Hx of Intervention; No palpitations Gastrointestinal: No abdominal pain, No nausea, No vomiting Genitourinary: No discharge, No dysuria Musculoskeletal: No back pain, No joint pain (DANI ANAND) All Other Systems Reviewed Negative Unless Noted: Yes (DANI ANAND) Past Wzbktqk-Zjulvb-Sjiisc Hx Patient Social History Tobacco Use?: No Use of E-Cig and/or Vaping dev: No (DANI ANAND) Immunizations Up To Date PED Vaccines UTD: Yes (DANI ANAND) Seasonal Allergies Seasonal Allergies: No (DANI ANAND) Past Medical History Surgeries: No Coronary Stent, Vasectomy Respiratory: No Cardiac: Yes High Cholesterol Neurological: No Genitourinary: Yes Prostate Problems Gastrointestinal: No Musculoskeletal: No Endocrine: No HEENT: No Cancer: No Psychosocial: No Integumentary: No Blood Disorders: No Adverse Reaction/Blood Tranf: No (DANI ANAND) Family Medical History Heart Disease (DANI ANAND) Physical Exam Vital Signs - First Documented 06/05/21 06/05/21 01:56 02:10 Temp 36.7 Pulse 83 Resp 33 B/P (MAP) 217/120 (152) Pulse Ox 100 O2 Flow Rate 21.00 (GUS LINARES MD) Capillary Refill : (DANI ANAND) Height: 5'10.00" Weight: 124lbs. 5.0oz. [id number]; 18.00 BMI Method:Stated General Appearance: moderate distress, thin Eyes: Bilateral Eye Normal Inspection, Bilateral Eye PERRL, Bilateral Eye EOMI HEENT: PERRL/EOMI, normal ENT inspection, TMs normal, pharynx normal Neck: non-tender, full range of motion, supple, normal inspection Respiratory: chest non-tender, respiratory distress, accessory muscle use, crackles, rhonchi, wheezing (Expiratory) Cardiovascular: normal peripheral pulses, regular rate, rhythm Gastrointestinal: normal bowel sounds, non tender, soft Extremities: normal range of motion, non-tender, normal capillary refill Neurologic/Psychiatric: alert; No normal mood/affect (Anxious affect); oriented x 3 Skin: normal color, warm/dry (DANI ANAND) Progress/Results/Core Measures Suspected Sepsis SIRS Temperature: Pulse: 83 Respiratory Rate: 33 Laboratory Tests 06/05/21 01:43: White Blood Count 10.6 Blood Pressure 217 /120 Mean: 152 Laboratory Tests 06/05/21 01:43: Creatinine 6.77H, INR Comment 0.9, Platelet Count 414H, Total Bilirubin 0.3 (DANI ANAND) Results/Orders Lab Results Laboratory Tests Test 06/05/21 01:43 06/05/21 02:23 06/05/21 03:29 Range/Units White Blood Count 10.6 4.3-11.0 10^3/uL Red Blood Count 3.28 L 4.30-5.52 10^6/uL Hemoglobin 8.6 L 13.3-17.7 g/dL Hematocrit 29 L 40-54 % Mean Corpuscular Volume 88 80-99 fL Mean Corpuscular Hemoglobin 26 25-34 pg Mean Corpuscular Hemoglobin Concent 30 L 32-36 g/dL Red Cell Distribution Width 18.6 H 10.0-14.5 % Platelet Count 414 H 130-400 10^3/uL Mean Platelet Volume 9.2 9.0-12.2 fL Immature Granulocyte % (Auto) 2 % Neutrophils (%) (Auto) 69 42-75 % Lymphocytes (%) (Auto) 20 12-44 % Monocytes (%) (Auto) 8 0-12 % Eosinophils (%) (Auto) 1 0-10 % Basophils (%) (Auto) 1 0-10 % Neutrophils # (Auto) 7.3 1.8-7.8 10^3/uL Lymphocytes # (Auto) 2.1 1.0-4.0 10^3/uL Monocytes # (Auto) 0.8 0.0-1.0 10^3/uL Eosinophils # (Auto) 0.1 0.0-0.3 10^3/uL Basophils # (Auto) 0.1 0.0-0.1 10^3/uL Immature Granulocyte # (Auto) 0.2 H 0.0-0.1 10^3/uL Prothrombin Time 12.7 12.2-14.7 SEC INR Comment 0.9 0.8-1.4 Sodium Level 135 135-145 MMOL/L Potassium Level 5.9 H 3.6-5.0 MMOL/L Chloride Level 97 L 98-107 MMOL/L Carbon Dioxide Level 21 21-32 MMOL/L Anion Gap 17 H 5-14 MMOL/L Blood Urea Nitrogen 62 H 7-18 MG/DL Creatinine 6.77 H 0.60-1.30 MG/DL Estimat Glomerular Filtration Rate 9 BUN/Creatinine Ratio 9 Glucose Level 97 70-105 MG/DL Calcium Level 8.8 8.5-10.1 MG/DL Corrected Calcium 9.0 8.5-10.1 MG/DL Total Bilirubin 0.3 0.1-1.0 MG/DL Aspartate Amino Transf (AST/SGOT) 25 5-34 U/L Alanine Aminotransferase (ALT/SGPT) 8 0-55 U/L Alkaline Phosphatase 100 40-136 U/L Troponin I 0.032 H 0.028 <0.028 NG/ML C-Reactive Protein High Sensitivity 1.59 H 0.00-0.50 MG/DL B-Type Natriuretic Peptide 9294.4 H <100.0 PG/ML Total Protein 7.6 6.4-8.2 GM/DL Albumin 3.8 3.2-4.5 GM/DL Blood Gas Puncture Site RR Blood Gas Patient Temperature 37 Arterial Blood pH 7.50 H 7.37-7.43 Arterial Blood Partial Pressure CO2 31 L 35-45 MMHG Arterial Blood Partial Pressure O2 44 L 79-93 MMHG Arterial Blood HCO3 24 23-27 MMOL/L Arterial Blood Total CO2 25.2 21.0-31.0 MMOL/L Arterial Blood Oxygen Saturation 82 L 94-100 % Arterial Blood Base Excess 1.3 -2.5-2.5 MMOL/L Michael Test YES-POS Blood Gas Ventilator Setting YES Blood Gas Inspired Oxygen 30% (GUS LINARES MD) Medications Given in ED Current Medications Medications Dose Ordered Sig/Poly Route Start Time Stop Time Status Last Admin Dose Admin Albuterol/ Ipratropium 3 ml ONCE ONCE INH 06/05/21 02:00 06/05/21 02:01 DC 06/05/21 02:16 3 ML Calcium Gluconate/ Sodium Chloride 100 ml @ ud STK-MED ONCE IV 06/05/21 03:24 06/05/21 03:26 DC 06/05/21 03:36 200 MLS/HR Furosemide 80 mg ONCE ONCE IVP 06/05/21 02:00 06/05/21 02:01 DC 06/05/21 02:29 80 MG Labetalol HCl 200 mg/Sodium Chloride 200 ml @ 60 mls/hr Q3H20M PRN IV 06/05/21 07:00 06/05/21 07:20 60 MLS/HR Nitroglycerin 1 inch ONCE ONCE TOP 06/05/21 02:15 06/05/21 02:16 DC 06/05/21 02:31 1 INCH Ondansetron HCl 8 mg ONCE ONCE IVP 06/05/21 06:15 06/05/21 06:16 DC 06/05/21 06:16 8 MG (GUS LINARES MD) Vital Signs/I&O 06/05/21 06/05/21 06/05/21 01:56 02:10 04:15 Temp 36.7 Pulse 83 76 74 Resp 33 20 B/P (MAP) 217/120 (152) Pulse Ox 100 96 93 O2 Flow Rate 21.00 40.00 (GUS LINARES MD) Vital Signs/I&O Capillary Refill : (DANI ANAND) Blood Pressure Mean: 152 Progress Note #1: Time: 02:13 Progress Note Plan to get some labs ABG chest x-ray and give him a DuoNeb and some nitroglycerin. His blood pressure on subsequent checks is still 205/124. Suspect he is in fluid overload heart failure renal failure. Put him on a BiPAP 18/5 with 30% FiO2 and is maintaining oxygen saturation of 100%. There could be some component of anxiety. Progress Note #2: Time: 02:35 Progress Note After the breathing treatment the patient states he is breathing much better and does not want to wear the mask anymore. Put him on 3 L by nasal cannula and he continues to saturate around 90 to 94%. He has diminished lung sounds without wheezing. Nitroglycerin paste was applied topically. Did not hear as many rails. He still having some increased accessory muscle work of breathing but states he is not willing to go back on the BiPAP mask at this time. We will continue to monitor for the time being. If he continues to struggle we may put him on Vapotherm. He does want to be intubated if necessary and states he is a full code. Progress Note #3: Time: 03:04 Progress Note ABG is likely venous however it still alkalotic which points to his relative hypoxemia was likely causing him to blow off all of his CO2 meds when he was not tolerating the BiPAP. He is doing fine 93% to 94% on 3 L of oxygen. Will not need to repeat an ABG. He certainly seems to be in some fluid overload related to his dialysis. Will give him some calcium gluconate to stabilize his cardiac myocyte membranes and get him to his outpatient dialysis this morning. Progress Note #4: Time: 04:07 Progress Note Patient is oxygen saturations 87 to 90% while he sleeps. He complains that he is having worsening shortness of breath and would like to go back on the BiPAP mask. RT summonsed. Blood pressure significantly improved with the nitroglycerin paste. The patient produced no urine despite Lasix. Troponin went down on delta test. Progress Note #5: Time: 05:49 Progress Note The patient rested for the rest of the night on CPAP 30 to 40% FiO2. Oxygen saturation in the mid upper 90s. He has planned to have his girlfriend bring his supplies so he can go straight to dialysis. Return precautions discussed. Progress Note #6: Time: 06:27 Progress Note Patient is not tolerating oxygen by nasal cannula alone. He desaturates to 82 to 83% on 6 L by nasal cannula. Will put him back on the CPAP which brought him back up to 94% on 40% FiO2 and look for inpatient transfer. [facility] in [place] called and spoke to the triage nurse and they will call us back. Progress Note #7: Time: 06:37 Progress Note Discussed the case with triage nursing [facility] gave her a history and they will talk to the core drilling supervisor but it will be after 7 before they call us back. We will go ahead and start him on a labetalol drip as his blood pressure is increasing again today 213/117. Goal 180-200 systolic. (DANI ANAND) Progress Note : Time: 07:20 Progress Note I did discuss the case with Dr. Soriano, [facility], critical care unit and reviewed the case. Patient remains quite hypertensive 212/117. Labetalol drip has been initiated. Patient is on BiPAP and O2 sats are 97% currently. Patient does need emergent dialysis for fluid volume overload and hypertensive emergency. They have graciously accepted the patient to their facility for further care and dialysis. Discussed with patient who agrees with plan. Pending bed assignment. (GUS LINARES MD) ECG Initial ECG Impression Date: Jun 05, 2021 Initial ECG Impression Time: 01:46 Initial ECG Rate: 82 Initial ECG Rhythm: Normal Sinus Initial ECG Intervals: Normal Initial ECG Impression: Normal, Nonspecific Changes Comment Significant movement artifact. Normal sinus rhythm without any clinically relevant ST changes. Borderline prolonged QTC of 469 ms (DANI ANAND) Diagnostic Imaging Diagonstic Imaging: Xray Plain Films/CT/US/NM/MRI: chest Comments Bilateral pulmonary edema. Reviewed: Reviewed by Me (DANI ANAND) Comments [facility], [place] NAME: ACE ROSENTHAL [facility] REC#: [id number] PT STATUS: REG ER : 1960 PHYSICIAN: DANI ANAND MD ADMIT DATE: 06/05/21/ER Draft Date of Exam:06/05/21 CHEST 1 VIEW, AP/PA ONLY INDICATION: Shortness of breath Frontal chest obtained at 0147 a.m. and compared to 12/02/2016. There is poststernotomy change. There is cardiomegaly which is new compared to the prior study. There is a dual-lumen dialysis catheter in place from right IJ approach with tip overlying the low SVC. There is extensive vascular congestion with diffuse interstitial edema and perihilar alveolar infiltrate. There is no pneumothorax or pleural fluid. IMPRESSION: New cardiomegaly compared to the prior study with poststernotomy change. Extensive new vascular congestion and interstitial edema and perihilar alveolar infiltrates, compatible with fluid overload. Dictated on workstation # [id number] Dict: 06/05/21 0713 Trans: 06/05/21 0719 [facility] [id number] Interpreted by: ALEXANDRA TEMPLETON MD Electronically signed by: (GUS LINARES MD) Transfer of Care Transfer of Care Time: 07:00 Care transferred to: Dr. 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 Soriano. [facility] who accepts patient for transfer to their facility. Transfer Facility: [place], [place] Method of Transfer: EMS (GUS LINARES MD) Departure-Patient Inst. Referrals: NO,LOCAL PHYSICIAN (PCP/Family) Primary Care Physician DANI ANAND Jun 05, 2021 02:14 GUS LINARES MD Jun 05, 2021 07:31
[2021-06-05] MEDS ORDERED: NITROGLYCERIN 2% OINT 1 GM UNIT DOSE PACKET TOP ONE (02:15)
[2021-06-05 02:30] LABS: ABG BASE EXCESS 1.3 MMOL/L (-2.5-2.5); ABG OXYGEN SATURATION 82 % (94-100); ABG PCO2 31 MMHG (35-45); ABG PO2 44 MMHG (79-93); ABG TCO2 25.2 MMOL/L (21.0-31.0)
[2021-06-05 02:31] LABS: ALLENS TEST YES-POS
[2021-06-05 02:32] LABS: INSPIRED O2 30%; PATIENT TEMP 37; VENTILATOR YES
[2021-06-05] MEDS ORDERED: CALCIUM GLUC. 10% 4.65 MEQ/10 ML VIAL IV ONE (03:15)
[2021-06-05] MEDS ORDERED: CALC GLUC 1 GM/100 ML IVPB 100 ML IV ONE (03:24)
[2021-06-05] MEDS ORDERED: ONDANSETRON 4 MG/2 ML (SDV) Z0FRAN IVP ONE (06:15)
[2021-06-05] MEDS ORDERED: niCARdipine IV FOR DRIP 50 MG KIT ONE (06:44)
[2021-06-05] MEDS ORDERED: niCARdipine IV 50 MG in NS (IVPB) 230 ML IV SCH (06:45)
[2021-06-05] MEDS ORDERED: LABETALOL INJECTION 200 MG in NS (IVPB) 160 ML IV PRN (07:00)
--- NOTE | 2021-06-05 07:21 | Diagnostic Imaging Report ---
INDICATION: Shortness of breath Frontal chest obtained at 0147 a.m. and compared to 12/02/2016. There is poststernotomy change. There is cardiomegaly which is new compared to the prior study. There is a dual-lumen dialysis catheter in place from right IJ approach with tip overlying the low SVC. There is extensive vascular congestion with diffuse interstitial edema and perihilar alveolar infiltrate. There is no pneumothorax or pleural fluid. IMPRESSION: New cardiomegaly compared to the prior study with poststernotomy change. Extensive new vascular congestion and interstitial edema and perihilar alveolar infiltrates, compatible with fluid overload. Dictated by: Dictated on workstation # [id number]
[2021-06-05 08:50] VITALS: BP_SYST 173; BP_SYST 175; BP_DIAS 105; BP_DIAS 94
== END 2021-06-05 09:05 | disposition short-term general hospital (02) ==
LOC: EDUNIT# 01:38 → ER 01:40
DX: J96.01 Acute respiratory failure with hypoxia (principal); I13.2 Hypertensive heart and chronic kidney disease with heart failure and with stage 5 chronic kidney disease, or end stage renal disease; N18.6 End stage renal disease; Z86.16 Personal history of COVID-19
CPT/HCPCS: 36415; 71045; 80053; 82805; 83880; 84484; 85025; 85610; 86141; 93005; 94640; 94660; 99291

== ENCOUNTER 2021-06-15 23:20 | Emergency (ER) | payer SELFPAY ==
[~2021-06-15] VITALS: Ht 177.8 cm; Wt 58.1 kg
[2021-06-15] MEDS ORDERED: RT-ALBUTEROL SULF 2.5 MG/3 ML PRE-MIX VIAL INH STA (23:30)
[2021-06-15 23:36] LABS: BASOPHILS # (AUTO) 0.1 10^3/uL (0.0-0.1); BASOPHILS % (AUTO) 1 % (0-10); EOSINOPHILS # (AUTO) 0.5 10^3/uL (0.0-0.3); EOSINOPHILS % (AUTO) 3 % (0-10); HEMATOCRIT 26 % (40-54); HEMOGLOBIN 7.8 g/dL (13.3-17.7); LYMPHOCYTES # (AUTO) 1.9 10^3/uL (1.0-4.0); LYMPHOCYTES % (AUTO) 11 % (12-44); MEAN CORPUSCULAR HEMOGLOBIN 27 pg (25-34); MEAN CORPUSCULAR HGB CONC 30 g/dL (32-36); MEAN CORPUSCULAR VOLUME 90 fL (80-99); MEAN PLATELET VOLUME 8.9 fL (9.0-12.2); MONOCYTES % (AUTO) 6 % (0-12); NEUTROPHILS % (AUTO) 79 % (42-75); PLATELET COUNT 307 10^3/uL (130-400); WHITE BLOOD COUNT 17.7 10^3/uL (4.3-11.0)
--- NOTE | 2021-06-15 23:39 | ED Respiratory ---
General Chief Complaint: Respiratory Problems Stated Complaint: SOB Source: patient Exam Limitations: no limitations (GUS LINARES MD) History of Present Illness Date Seen by Provider: Jun 15, 2021 Time Seen by Provider: 23:21 Initial Comments Here by EMS with increasing shortness of air tonight at home. Patient does have end-stage renal disease and is on dialysis on Friday, and Friday. Last dialysis was yesterday and they did pull 5 L. He is due to have dialysis in the morning. He is currently not prescribed oxygen at home but has been using his brother's machine. They are working on getting him oxygen. States tonight that he became quite dyspneic and was unable to walk even a few steps without severe shortness of breath and dizziness. Denies fever chills. Denies nausea or vomiting. Does have smoking history but is trying to quit. Does not use alcohol or drugs. Reports taking medications as directed. Follows with bread jockey at [facility] [place] in [facility]. EMS did place him on high flow O2 and did apply DuoNeb which seems to have helped a little bit. He is requiring 8 L of oxygen to keep O2 saturation above 90% but this seems to be improving. Timing/Duration: this morning, getting worse Severity: moderate, severe Prior Episodes/Possible Cause: occasional episodes Modifying Factors: Improves With Albuterol Nebulizer, Improves With Oxygen Associated Symptoms: No chest pain/soreness; cough; No fever/chills, No muscle aches, No nasal congestion; shortness of breath, wheezing (GUS LINARES MD) Allergies and Home Medications Allergies Coded Allergies: No Known Drug Allergies (Unverified , 04/14/11) Patient Home Medication List Home Medication List Reviewed: Yes (GUS LINARES MD) Aspirin (Aspirin EC) 81 Mg Tablet.dr, 81 MG PO DAILY, (Reported) Entered as Reported by: JALEESA GODWIN on 12/02/16 2882 Lisinopril (Lisinopril) 5 Mg Tablet, 5 MG PO DAILY, (Reported) Entered as Reported by: JALEESA GODWIN on 12/02/16 8543 Review of Systems Review of Systems Constitutional: No chills, No fever EENTM: no symptoms reported Respiratory: cough, dyspnea on exertion, orthopnea, short of breath Cardiovascular: No chest pain Gastrointestinal: No abdominal pain, No nausea, No vomiting Genitourinary: no symptoms reported Musculoskeletal: No muscle pain, No neck pain Skin: no symptoms reported Psychiatric/Neurological: No Symptoms Reported (GUS LINARES MD) All Other Systems Reviewed Negative Unless Noted: Yes (GUS LINARES MD) Past Hpprsja-Pifiqz-Wdurql Hx Patient Social History Tobacco Use?: Yes Tobacco type used: Cigarettes Smoking Status: Current Everyday Smoker Use of E-Cig and/or Vaping dev: No Substance use?: No Alcohol Use?: No (GUS LINAERS MD) Immunizations Up To Date PED Vaccines UTD: Yes (GUS LINARES MD) Seasonal Allergies Seasonal Allergies: No (GUS LINARES MD) Past Medical History Surgeries: Yes Coronary Stent, Vascular Surgery (Dialysis shunt left arm), Vasectomy Respiratory: No Cardiac: Yes High Cholesterol Neurological: No Genitourinary: Yes Prostate Problems Gastrointestinal: No Musculoskeletal: No Endocrine: No HEENT: No Cancer: No Psychosocial: No Integumentary: No Blood Disorders: No Adverse Reaction/Blood Tranf: No (GUS LINARES MD) Family Medical History Reviewed Nursing Family Hx (GUS LINARES MD) Heart Disease (GUS LINARES MD) Physical Exam Vital Signs - First Documented (BERRY PALMA MD) Capillary Refill : (GUS LINARES MD) Height: 5'10.00" Weight: 124lbs. 5.0oz. [id number]; 18.00 BMI Method:Stated General Appearance: WD/WN, no apparent distress HEENT: PERRL/EOMI, pharynx normal Neck: full range of motion, supple Respiratory: decreased breath sounds, crackles (All lung luke), wheezing (Left and right upper) Cardiovascular: regular rate, rhythm, no murmur Gastrointestinal: non tender, soft Extremities: non-tender, normal inspection Neurologic/Psychiatric: alert, oriented x 3 Skin: normal color, warm/dry (GUS LINARES MD) Focused Exam Lactate Level 06/16/21 01:07: Lactic Acid Level 1.71 (BERRY PALMA MD) Lactic Acid Level Laboratory Tests Test 06/16/21 01:07 Lactic Acid Level 1.71 MMOL/L (0.50-2.00) (BERRY PALMA MD) Progress/Results/Core Measures Suspected Sepsis SIRS Temperature: Pulse: Respiratory Rate: Laboratory Tests 06/15/21 23:25: White Blood Count 17.7H Blood Pressure / Mean: 06/16/21 01:07: Lactic Acid Level 1.71 Laboratory Tests 06/15/21 23:25: Creatinine 5.94H, Platelet Count 307, Total Bilirubin 0.4 06/16/21 04:40: (GUS LINARES MD) Results/Orders Lab Results Laboratory Tests Test 06/15/21 23:25 06/16/21 01:07 06/16/21 01:40 06/16/21 02:46 Range/Units White Blood Count 17.7 H 4.3-11.0 10^3/uL Red Blood Count 2.88 L 4.30-5.52 10^6/uL Hemoglobin 7.8 L 13.3-17.7 g/dL Hematocrit 26 L 40-54 % Mean Corpuscular Volume 90 80-99 fL Mean Corpuscular Hemoglobin 27 25-34 pg Mean Corpuscular Hemoglobin Concent 30 L 32-36 g/dL Red Cell Distribution Width 20.1 H 10.0-14.5 % Platelet Count 307 130-400 10^3/uL Mean Platelet Volume 8.9 L 9.0-12.2 fL Immature Granulocyte % (Auto) 1 % Neutrophils (%) (Auto) 79 H 42-75 % Lymphocytes (%) (Auto) 11 L 12-44 % Monocytes (%) (Auto) 6 0-12 % Eosinophils (%) (Auto) 3 0-10 % Basophils (%) (Auto) 1 0-10 % Neutrophils # (Auto) 14.0 H 1.8-7.8 10^3/uL Lymphocytes # (Auto) 1.9 1.0-4.0 10^3/uL Monocytes # (Auto) 1.0 0.0-1.0 10^3/uL Eosinophils # (Auto) 0.5 H 0.0-0.3 10^3/uL Basophils # (Auto) 0.1 0.0-0.1 10^3/uL Immature Granulocyte # (Auto) 0.1 0.0-0.1 10^3/uL Neutrophils % (Manual) 82 % Lymphocytes % (Manual) 9 % Monocytes % (Manual) 6 % Eosinophils % (Manual) 3 % Jannet Cells SLIGHT Elliptocytes SLIGHT Sodium Level 135 135-145 MMOL/L Potassium Level 6.4 H 3.6-5.0 MMOL/L Chloride Level 97 L 98-107 MMOL/L Carbon Dioxide Level 20 L 21-32 MMOL/L Anion Gap 18 H 5-14 MMOL/L Blood Urea Nitrogen 65 H 7-18 MG/DL Creatinine 5.94 H 0.60-1.30 MG/DL Estimat Glomerular Filtration Rate 10 BUN/Creatinine Ratio 11 Glucose Level 89 70-105 MG/DL Calcium Level 9.3 8.5-10.1 MG/DL Corrected Calcium 9.6 8.5-10.1 MG/DL Total Bilirubin 0.4 0.1-1.0 MG/DL Aspartate Amino Transf (AST/SGOT) 14 5-34 U/L Alanine Aminotransferase (ALT/SGPT) 6 0-55 U/L Alkaline Phosphatase 95 40-136 U/L Troponin I 1.060 *H <0.028 NG/ML C-Reactive Protein High Sensitivity 7.31 H 0.00-0.50 MG/DL B-Type Natriuretic Peptide 9109.9 H <100.0 PG/ML Total Protein 7.1 6.4-8.2 GM/DL Albumin 3.6 3.2-4.5 GM/DL Procalcitonin 0.45 H <0.10 NG/ML Lactic Acid Level 1.71 0.50-2.00 MMOL/L Urine Color YELLOW Urine Clarity CLEAR Urine pH 8.5 5-9 Urine Specific [place] 1.010 L 1.016-1.022 Urine Protein 2+ H NEGATIVE Urine Glucose (UA) NEGATIVE NEGATIVE Urine Ketones NEGATIVE NEGATIVE Urine Nitrite NEGATIVE NEGATIVE Urine Bilirubin NEGATIVE NEGATIVE Urine Urobilinogen 0.2 < = 1.0 MG/DL Urine Leukocyte Esterase NEGATIVE NEGATIVE Urine RBC (Auto) TRACE-I H NEGATIVE Urine RBC 0-2 /HPF Urine WBC 0-2 /HPF Urine Crystals NONE /LPF Urine Bacteria TRACE /HPF Urine Casts PRESENT /LPF Urine Hyaline Casts 0-2 H /LPF Urine Mucus NEGATIVE /LPF Urine Culture Indicated NO Glucometer 39 *L 70-110 MG/DL Test 06/16/21 03:04 06/16/21 04:36 06/16/21 04:40 06/16/21 05:04 Range/Units Glucometer 102 56 *L 133 H 70-110 MG/DL Sodium Level 134 L 135-145 MMOL/L Potassium Level 6.5 *H 3.6-5.0 MMOL/L Chloride Level 98 98-107 MMOL/L Carbon Dioxide Level 20 L 21-32 MMOL/L Anion Gap 16 H 5-14 MMOL/L Blood Urea Nitrogen 69 H 7-18 MG/DL Creatinine 6.24 H 0.60-1.30 MG/DL Estimat Glomerular Filtration Rate 10 BUN/Creatinine Ratio 11 Glucose Level 65 L 70-105 MG/DL Calcium Level 8.8 8.5-10.1 MG/DL Test 06/16/21 06:18 06/16/21 07:19 06/16/21 08:50 Range/Units Glucometer 89 85 83 70-110 MG/DL (BERRY PALMA MD) My Orders Orders - BERRY PALMA MD Accucheck Stat ONCE (06/16/21 06:11) Accucheck Stat ONCE (06/16/21 06:11) Accucheck Stat ONCE (06/16/21 08:52) (BERRY PALMA MD) Medications Given in ED Current Medications Medications Dose Ordered Sig/Poly Route Start Time Stop Time Status Last Admin Dose Admin Dextrose 50 ml ONCE ONCE IV 06/16/21 01:30 06/16/21 01:31 DC 06/16/21 01:36 50 ML Dextrose 50 ml ONCE ONCE IV 06/16/21 03:00 06/16/21 03:01 DC 06/16/21 02:50 50 ML Dextrose 50 ml ONCE ONCE IV 06/16/21 04:45 06/16/21 04:46 DC 06/16/21 04:44 50 ML Hydralazine HCl 10 mg ONCE ONCE IV 06/16/21 00:00 06/16/21 00:01 DC 06/16/21 00:13 10 MG Lorazepam 1 mg ONCE ONCE IVP 06/16/21 03:00 06/16/21 03:01 DC 06/16/21 02:45 1 MG Nitroglycerin 1 inch ONCE ONCE TOP 06/16/21 01:15 06/16/21 01:16 DC 06/16/21 01:30 1 INCH Piperacillin Sod/ Tazobactam Sod 2.25 gm/Sodium Chloride 100 ml @ 200 mls/hr ONCE ONCE IV 06/16/21 01:15 06/16/21 01:44 DC 06/16/21 01:36 200 MLS/HR (BERRY PLAMA MD) Vital Signs/I&O 06/15/21 06/15/21 06/16/21 06/16/21 23:21 23:21 01:33 07:59 Temp 36.8 Pulse 93 88 74 Resp 22 26 24 B/P (MAP) Pulse Ox 97 95 94 96 O2 Delivery OxyMask OxyMask O2 Flow Rate 10.00 70.00 40.00 (BERRY PALMA MD) Vital Signs/I&O Capillary Refill : (GUS LINARES MD) Progress Note : Progress Note Seen and evaluated. IV by EMS. DuoNeb by EMS. We will check labs, EKG, chest x-ray and give another albuterol neb. Hydralazine 10 mg IV ordered. Monitor patient. 0055: Patient states overall he is improved. Chest x-ray is much worse than previous with moderate bilateral pulmonary edema. White count is elevated as well as CRP. We have added blood cultures, lactic acid and procalcitonin. Patient may have superimposed pneumonia on pulmonary edema. He is afebrile currently. He did have Covid in early May. 0114: Patient's troponin noted to be elevated. BNP is also elevated. We will initiate BiPAP. He will require transfer for dialysis. Due to concerns about possible pneumonia, procalcitonin has been added and is pending. We will go ahead and initiate Zosyn 2.25 g IV after second set of blood cultures. Patient is potassium is elevated at 6.4. He has had a few albuterol treatments which sh ould help. He does not really make urine of any significance of Lasix likely will be of no benefit. He does not have QRS widening but does have some peaked T's in the lateral leads but not throughout. Does not require calcium administration at this point and we will consider insulin and glucose if needed. Monitor patient. 0135: I have initiated transfer proceedings with [facility] in [facility]. At 0215: I did discuss the case with Dr. Lujan, global compensation director on at [facility] [place] in [place], [place]. He has accepted the patient in transfer. We will try to arrange EMS transport but currently no ambulances available. We will evaluate for other systems to transfer. We are pending bed assignment. 0250: Patient's blood sugar dropped to 39. He did have some shaking episodes and was a bit confused. D50 1 amp given. This did improve his situation. We also did give Ativan IV due to some anxiety around the mask. He is much more comfortable currently and tolerating BiPAP well. We have bed assignment and are pending transport. We will continue to monitor blood sugar and will recheck potassium level. He does not show QRS widening currently on the monitor. Monitor patient. 0440: Blood sugar 56. We will go ahead and do another amp of D50. We will also check basic metabolic panel to evaluate potassium and electrolyte level. Monitor patient. (GUS LINARES MD) Progress Note #1: Time: 07:44 Progress Note Care of this patient was assumed from Dr. Linares at shift change. We are awaiting EMS transport for the transfer to [place]. Patient is sleeping comfort ably but easily awakens. Repeat blood sugar was 85 and is stable. Patient has no complaints. Lungs are clear to auscultation anteriorly. Progress Note #2: Time: 08:56 Progress Note EMS is here to transport patient. Systolic blood pressure is stable in the 180s with Nitropaste still in place. Blood sugar just prior to transfer was 83 without any additional glucose or dextrose treatment. Patient is stable on BiPAP at this time. (BERRY PALMA MD) ECG Initial ECG Impression Date: Jun 15, 2021 Initial ECG Impression Time: 23:34 Initial ECG Rate: 86 Initial ECG Rhythm: Normal Sinus Comment Sinus rhythm with normal axis. No evidence of ST elevation OR. Similar to previous 06/05/2021. Interpreted by me. (GUS LINARES MD) Diagnostic Imaging Diagonstic Imaging: Xray Plain Films/CT/US/NM/MRI: chest Comments Moderate to significant pulmonary edema and cardiomegaly noted. Worse than previous. (GUS LINARES MD) Departure Impression Primary Impression: Acute respiratory failure with hypoxemia Additional Impressions: Heart failure and kidney disease due to high blood pressure Elevated troponin I level Bilateral pneumonia Qualified Codes: J18.9 - Pneumonia, unspecified organism Disposition: 02 XFER SHT-TRM HOSP Condition: Stable Transfer Transfer Reason: Exceeds level of care Time Spoke to Accepting Phy: 02:15 Transfer Progress Notes [place], [place], Dr Lujan accepting (GUS LINARES MD) Transfer Time: 08:57 Transfer Facility: [place] [facility] Method of Transfer: EMS (BERRY PALMA MD) Departure-Patient Inst. Referrals: NO,LOCAL PHYSICIAN (PCP/Family) Primary Care Physician GUS LINARES MD Jun 15, 2021 23:39 BERRY PALMA MD Jun 16, 2021 07:45
[2021-06-15 23:43] LABS: ALBUMIN 3.6 GM/DL (3.2-4.5); POTASSIUM 6.4 MMOL/L (3.6-5.0)
[2021-06-15 23:44] LABS: CALCIUM 9.3 MG/DL (8.5-10.1)
[2021-06-15 23:45] LABS: TOTAL PROTEIN 7.1 GM/DL (6.4-8.2)
[2021-06-15 23:47] LABS: BILIRUBIN,TOTAL 0.4 MG/DL (0.1-1.0)
[2021-06-15 23:49] LABS: CREATININE SERUM 5.94 MG/DL (0.60-1.30)
[2021-06-16] MEDS ORDERED: hydrALAZINE (APESOLINE) 20 MG/ML VIAL IV ONE
[2021-06-16 00:11] LABS: LYMPHOCYTES % (MANUAL) 9 %; NEUTROPHILS % (MANUAL) 82 %
[2021-06-16 00:12] LABS: BURR CELLS SLIGHT; ELLIPT/OVALOCYTES SLIGHT; EOSINOPHILS % (MANUAL) 3 %; MONOCYTES % (MANUAL) 6 %
[2021-06-16] MEDS ORDERED: PIPERACILLIN SODIUM/TAZOBACTAM 2.25 GM in NS (IVPB) 100 ML IV ONE (01:15)
[2021-06-16] MEDS ORDERED: NITROGLYCERIN 2% OINT 1 GM UNIT DOSE PACKET TOP ONE (01:15)
[2021-06-16] MEDS ORDERED: inSUlin (REGULAR) HUMAN 1 UNIT/0.01 ML (CHARGE PER UNIT) IV STA (01:22)
[2021-06-16] MEDS ORDERED: DEXTROSE 50% 50 ML (IMS) SYR IV ONE ×3 (01:30→04:45)
[2021-06-16] MEDS ORDERED: LACTATED RINGERS 1,000 ML IV STA (01:34)
[2021-06-16 01:43] LABS: BILIRUBIN,URINE NEGATIVE (NEGATIVE); CLARITY,URINE CLEAR; COLOR,URINE YELLOW; GLUCOSE, URINE (UA) NEGATIVE (NEGATIVE); KETONES,URINE NEGATIVE (NEGATIVE); LEUKOCYTE ESTERASE ,URINE NEGATIVE (NEGATIVE); NITRITE,URINE NEGATIVE (NEGATIVE); PH,URINE 8.5 (5-9); PROTEIN,URINE 2+ (NEGATIVE)
[2021-06-16 01:53] LABS: BACTERIA,URINE TRACE /HPF; HYALINE CASTS, URINE 0-2 /LPF; RBC,URINE 0-2 /HPF; WBC,URINE 0-2 /HPF
[2021-06-16] MEDS ORDERED: LORazepam INJ 2 MG/ML (ATIVAN) VIAL ONE (02:44)
[2021-06-16] MEDS ORDERED: DEXTROSE 50% 50 ML (IMS) SYR ONE (02:46)
[2021-06-16] MEDS ORDERED: LORazepam INJ 2 MG/ML (ATIVAN) VIAL IVP ONE (03:00)
[2021-06-16 05:01] LABS: CALCIUM 8.8 MG/DL (8.5-10.1)
[2021-06-16 05:05] LABS: CREATININE SERUM 6.24 MG/DL (0.60-1.30)
[2021-06-16 05:13] LABS: POTASSIUM 6.5 MMOL/L (3.6-5.0)
--- NOTE | 2021-06-16 06:16 | Diagnostic Imaging Report ---
EXAMINATION: Chest 1 view HISTORY: soa COMPARISON: 06/05/2021 FINDINGS: Heart size and pulmonary vasculature are normal. Stable diffuse interstitial opacities seen throughout both lungs. No pleural effusion or pneumothorax. The osseous structures are intact. Surgical changes from median sternotomy. Right IJ central line is unchanged. IMPRESSION: 1. Stable diffuse interstitial opacities throughout both lungs compared to 06/05/2021. Dictated by: Dictated on workstation # [id number]
[2021-06-16 07:59] VITALS: BP 175/96
== END 2021-06-16 09:01 | disposition short-term general hospital (02) ==
LOC: EDUNIT# 23:20 → ER 23:25
DX: J96.01 Acute respiratory failure with hypoxia (principal); I13.2 Hypertensive heart and chronic kidney disease with heart failure and with stage 5 chronic kidney disease, or end stage renal disease; N18.6 End stage renal disease; J18.9 Pneumonia, unspecified organism; R79.89 Other specified abnormal findings of blood chemistry; F17.210 Nicotine dependence, cigarettes, uncomplicated
CPT/HCPCS: 36415; 71045; 80048; 80053; 81000; 82947; 83605; 83880; 84145; 84484; 85007; 85027; 86141; 87040; 93005; 93041; 94660; 96374; 96375; 96376; 99291

== ENCOUNTER 2021-06-25 07:44 | Emergency (ER) | payer MEDICAID ==
[~2021-06-25] VITALS: Ht 177.8 cm; Wt 58.1 kg
--- NOTE | 2021-06-25 08:15 | ED Respiratory ---
General Chief Complaint: Respiratory Problems Stated Complaint: SOA Nursing Triage Note: PT BROUGHT IN BY [facility] FROM HOME FOR SOA. PT WAS 85% ON 5LNC @ HOME. PT IS A DIALYSIS PT. Source: patient, EMS Exam Limitations: no limitations History of Present Illness Date Seen by Provider: Jun 25, 2021 Time Seen by Provider: 07:44 Initial Comments Patient presents ER by EMS from home with chief complaint of shortness of air. EMS noted his oxygen saturation to be 85% on 5 L by home concentrator. Patient recently out of the hospital for heart failure and finishing the last 2 days of antibiotics for pneumonia. His blood pressure was 200/140. He has not taken his medications this morning. He was given a DuoNeb en route which the patient states helped significantly with his shortness of air. He has a history of smoking and down to about a third of a pack per day recently. He quit drinking several months ago. He does not use recreational drugs. He is on Friday, , Friday hemodialysis for kidney failure without diabetes. The patient states after the breathing treatment he feels significantly better. Allergies and Home Medications Allergies Coded Allergies: No Known Drug Allergies (Unverified , 04/14/11) Patient Home Medication List Home Medication List Reviewed: Yes Aspirin (Aspirin EC) 81 Mg Tablet.dr, 81 MG PO DAILY, (Reported) Entered as Reported by: JALEESA GODWIN on 12/02/16 1353 Lisinopril (Lisinopril) 5 Mg Tablet, 5 MG PO DAILY, (Reported) Entered as Reported by: JALEESA GODWIN on 12/02/16 7373 Review of Systems Review of Systems Constitutional: No chills, No diaphoresis EENTM: No ear discharge, No hearing loss, No ear pain Respiratory: No cough; short of breath; No wheezing Cardiovascular: No chest pain, No edema; Hx of Intervention; No palpitations Gastrointestinal: No abdominal pain, No nausea Genitourinary: No discharge, No dysuria Musculoskeletal: No back pain, No joint pain All Other Systems Reviewed Negative Unless Noted: Yes Past Pnswvce-Seydlb-Davfck Hx Patient Social History Tobacco Use?: No Smoking Status: Former Smoker Use of E-Cig and/or Vaping dev: No Substance use?: No Alcohol Use?: No Pt feels they are or have been: No Immunizations Up To Date PED Vaccines UTD: Yes Seasonal Allergies Seasonal Allergies: No Past Medical History Surgeries: Yes Coronary Stent, Vascular Surgery, Vasectomy Respiratory: No Cardiac: Yes High Cholesterol Neurological: No Genitourinary: Yes Prostate Problems Gastrointestinal: No Musculoskeletal: No Endocrine: No HEENT: No Cancer: No Psychosocial: No Integumentary: No Blood Disorders: No Adverse Reaction/Blood Tranf: No Family Medical History Heart Disease Physical Exam Vital Signs - First Documented Capillary Refill : Less Than 3 Seconds Height: 5'10.00" Weight: 124lbs. 5.0oz. 56.637402yv; 18.00 BMI Method:Stated General Appearance: WD/WN, no apparent distress Eyes: Bilateral Eye Normal Inspection, Bilateral Eye PERRL, Bilateral Eye EOMI HEENT: PERRL/EOMI, normal ENT inspection, TMs normal, pharynx normal Neck: full range of motion, supple, normal inspection Respiratory: lungs clear, normal breath sounds, respiratory distress (86% on 5 L nasal cannula. 7 L by oxygen mask brings him to 92%.), accessory muscle use (Mild) Cardiovascular: normal peripheral pulses, regular rate, rhythm Gastrointestinal: non tender, soft Extremities: non-tender, normal inspection, normal capillary refill Neurologic/Psychiatric: alert, normal mood/affect, oriented x 3 Skin: normal color, warm/dry Progress/Results/Core Measures Suspected Sepsis SIRS Temperature: Pulse: 107 Respiratory Rate: 19 Laboratory Tests 06/25/21 07:54: White Blood Count 10.2 Blood Pressure / Mean: Laboratory Tests 06/25/21 07:54: Creatinine 6.48H, INR Comment 1.0, Platelet Count 343, Total Bilirubin 0.4 Results/Orders Lab Results Laboratory Tests Test 06/25/21 07:54 06/25/21 08:25 06/25/21 08:39 Range/Units White Blood Count 10.2 4.3-11.0 10^3/uL Red Blood Count 3.69 L 4.30-5.52 10^6/uL Hemoglobin 10.1 L 13.3-17.7 g/dL Hematocrit 33 L 40-54 % Mean Corpuscular Volume 89 80-99 fL Mean Corpuscular Hemoglobin 27 25-34 pg Mean Corpuscular Hemoglobin Concent 31 L 32-36 g/dL Red Cell Distribution Width 17.4 H 10.0-14.5 % Platelet Count 343 130-400 10^3/uL Mean Platelet Volume 9.1 9.0-12.2 fL Immature Granulocyte % (Auto) 1 % Neutrophils (%) (Auto) 81 H 42-75 % Lymphocytes (%) (Auto) 11 L 12-44 % Monocytes (%) (Auto) 6 0-12 % Eosinophils (%) (Auto) 1 0-10 % Basophils (%) (Auto) 1 0-10 % Neutrophils # (Auto) 8.3 H 1.8-7.8 10^3/uL Lymphocytes # (Auto) 1.1 1.0-4.0 10^3/uL Monocytes # (Auto) 0.6 0.0-1.0 10^3/uL Eosinophils # (Auto) 0.1 0.0-0.3 10^3/uL Basophils # (Auto) 0.1 0.0-0.1 10^3/uL Immature Granulocyte # (Auto) 0.1 0.0-0.1 10^3/uL Prothrombin Time 13.4 12.2-14.7 SEC INR Comment 1.0 0.8-1.4 Activated Partial Thromboplast Time 37 H 24-35 SEC D-Dimer 3.74 H 0.00-0.49 UG/ML Sodium Level 134 L 135-145 MMOL/L Potassium Level 4.7 3.6-5.0 MMOL/L Chloride Level 92 L 98-107 MMOL/L Carbon Dioxide Level 22 21-32 MMOL/L Anion Gap 20 H 5-14 MMOL/L Blood Urea Nitrogen 36 H 7-18 MG/DL Creatinine 6.48 H 0.60-1.30 MG/DL Estimat Glomerular Filtration Rate 9 BUN/Creatinine Ratio 6 Glucose Level 97 70-105 MG/DL Calcium Level 9.6 8.5-10.1 MG/DL Corrected Calcium 9.7 8.5-10.1 MG/DL Magnesium Level 2.3 1.6-2.4 MG/DL Total Bilirubin 0.4 0.1-1.0 MG/DL Aspartate Amino Transf (AST/SGOT) 17 5-34 U/L Alanine Aminotransferase (ALT/SGPT) 8 0-55 U/L Alkaline Phosphatase 165 H 40-136 U/L Troponin I 0.122 H <0.028 NG/ML C-Reactive Protein High Sensitivity 8.59 H 0.00-0.50 MG/DL Total Protein 8.0 6.4-8.2 GM/DL Albumin 3.9 3.2-4.5 GM/DL Procalcitonin 0.84 H <0.10 NG/ML Influenza Type A (RT-PCR) Not Detected Not Detecte Influenza Type B (RT-PCR) Not Detected Not Detecte SARS-CoV-2 RNA (RT-PCR) Not Detected Not Detecte Blood Gas Puncture Site LT RAD Blood Gas Patient Temperature 36.0 Arterial Blood pH 7.46 H 7.37-7.43 Arterial Blood Partial Pressure CO2 38 35-45 MMHG Arterial Blood Partial Pressure O2 57 L 79-93 MMHG Arterial Blood HCO3 27 23-27 MMOL/L Arterial Blood Total CO2 28.1 21.0-31.0 MMOL/L Arterial Blood Oxygen Saturation 92 L 94-100 % Arterial Blood Base Excess 3.1 H -2.5-2.5 MMOL/L Michael Test YES-POS Blood Gas Ventilator Setting NO Blood Gas Inspired Oxygen 5 L My Orders Orders - DANI ANAND 19 Inhouse Test (06/25/21 08:09) Influenza A And B By Pcr (06/25/21 08:09) Cbc With Automated Diff (06/25/21 08:09) Comprehensive Metabolic Panel (06/25/21 08:09) Hs C Reactive Protein (06/25/21 08:09) Procalcitonin (Pct) (06/25/21 08:09) Fibrin Degradation Products (06/25/21 08:09) Protime With Inr (06/25/21 08:09) Magnesium (06/25/21 08:09) Nitroglycerin 0.4 Mg Btl 25's (Nitrostat (06/25/21 08:15) Chest 1 View, Ap/Pa Only (06/25/21 08:09) Troponin I Abi (06/25/21 08:23) Partial Thromboplastin Time (06/25/21 08:23) Arterial Blood Gas (06/25/21 08:24) Arterial Blood Draw - Obtain (06/25/21 08:39) Ekg Tracing (06/25/21 09:17) Continuous Ekg Monitoring (06/25/21 09:17) Medications Given in ED Current Medications Medications Dose Ordered Sig/Poly Route Start Time Stop Time Status Last Admin Dose Admin Nitroglycerin 1 TAB Q 5 MIN X 3 NEEDED PRN SL 06/25/21 08:15 06/25/21 17:36 DC 06/25/21 09:45 0.4 MG Vital Signs/I&O 06/25/21 06/25/21 07:46 07:46 Temp 36.0 Pulse 107 Resp 19 B/P (MAP) Pulse Ox 91 O2 Delivery Nasal Cannula Nasal Cannula O2 Flow Rate 6.00 Capillary Refill : Less Than 3 Seconds Progress Note #1: Time: 08:20 Progress Note No audible crackles or wheezing after the DuoNeb. Still having some increased oxygen dependence so we will trial some nitroglycerin and see if that helps if not we will use BiPAP. If he is needing extra help with ventilation then he will need to go inpatient somewhere where they have hemodialysis available. Patient states at this time he would like to go home however when explained that his oxygen concentrator will not go about 5 he states that he he is glad that he feels better but is willing to go inpatient if he has to. He is already taken his blood pressure medications this morning. Blood pressure is already down to 180/98. He is not having any fever but since he has recently been in the hospital test him for Covid and influenza. Progress Note #2: Time: 09:27 Progress Note Patient maintaining oxygen saturations 91 to 92% on 7 L by nasal cannula. Resting comfortably. He is requiring more oxygen than would be available to him at home. He does appear to have a stable chest x-ray from the last time he was in heart failure and his ABG reflects that he is acute on chronic hypoxemia and would benefit from inpatient hemodialysis today versus waiting for outpatient tomorrow. Nitroglycerin did bring his blood pressure down around 170s and is back up to 190/109. His work of breathing has significantly decreased after DuoNeb and nitroglycerin. We will hold off on BiPAP for now. His troponin is probably at baseline. A delta troponin could be obtained in a few hours. Progress Note #3: Time: 12:35 Progress Note Patient is resting comfortably. He did take off his oxygen and slipped down to 70% oxygen saturation briefly. We did call [facility] and they still do not have a bed assignment available. Progress Note #4: Time: 15:02 Progress Note Patient is resting comfortably. [facility] is waiting for discharges and have no beds available at this time. ECG Initial ECG Impression Date: Jun 25, 2021 Initial ECG Impression Time: 07:50 Initial ECG Rate: 104 Initial ECG Rhythm: S.Tach Initial ECG Intervals: QT (495) Initial ECG Impression: Normal Initial ECG Comparisson: Unchanged Comment Sinus tachycardia without ST elevation or depression. Diagnostic Imaging Diagonstic Imaging: Xray Plain Films/CT/US/NM/MRI: chest Comments NAME: ACE ROSENTHAL [facility] REC#: [id number] PT STATUS: REG ER : 1960 PHYSICIAN: DANI ANAND MD ADMIT DATE: 06/25/21/ER Draft Date of Exam:06/25/21 CHEST 1 VIEW, AP/PA ONLY Indication: Shortness of air. Time Of Exam: 8:59 AM Correlation is made with prior chest from 02/24/2022. Changes of median sternotomy are noted. Dialysis line is tip overlying the right atrium. Extensive bilateral interstitial and airspace pulmonary infiltrates persist and show no real change. No significant effusion or pneumothorax is detected. Impression: Stable bilateral infiltrates when compared to exam from 10 days earlier. Dictated on workstation # [id number] Dict: 06/25/21 0909 Trans: 06/25/21 0914 [facility] [id number] Interpreted by: JEANETTE SIMMONS MD Electronically signed by: Reviewed: Reviewed by Me Departure Impression Primary Impression: Acute on chronic respiratory failure with hypoxemia Additional Impressions: Heart failure Qualified Codes: I50.9 - Heart failure, unspecified Renal failure Qualified Codes: N18.6 - End stage renal disease; Z99.2 - Dependence on renal dialysis Disposition: [facility] Condition: Stable Transfer Transfer Reason: Exceeds level of care (No inpatient hemodialysis) Time Spoke to Accepting Phy: 10:15 Transfer Progress Notes 0920: Discussed the case with triage team at [place], [place] where the patient is known to [facility]. They will call us back. 1015: Accepted by Dr. Ramirez to [place], [place]. Transfer Time: 17:45 Transfer Facility: [place], [place] Method of Transfer: EMS Departure-Patient Inst. Referrals: NO,LOCAL PHYSICIAN (PCP/Family) Primary Care Physician DANI ANAND Jun 25, 2021 08:15
[2021-06-25 08:18] LABS: BASOPHILS # (AUTO) 0.1 10^3/uL (0.0-0.1); BASOPHILS % (AUTO) 1 % (0-10); EOSINOPHILS # (AUTO) 0.1 10^3/uL (0.0-0.3); EOSINOPHILS % (AUTO) 1 % (0-10); HEMATOCRIT 33 % (40-54); HEMOGLOBIN 10.1 g/dL (13.3-17.7); LYMPHOCYTES # (AUTO) 1.1 10^3/uL (1.0-4.0); LYMPHOCYTES % (AUTO) 11 % (12-44); MEAN CORPUSCULAR HEMOGLOBIN 27 pg (25-34); MEAN CORPUSCULAR HGB CONC 31 g/dL (32-36); MEAN CORPUSCULAR VOLUME 89 fL (80-99); MEAN PLATELET VOLUME 9.1 fL (9.0-12.2); MONOCYTES # (AUTO) 0.6 10^3/uL (0.0-1.0); MONOCYTES % (AUTO) 6 % (0-12); NEUTROPHILS # (AUTO) 8.3 10^3/uL (1.8-7.8); NEUTROPHILS % (AUTO) 81 % (42-75); PLATELET COUNT 343 10^3/uL (130-400); WHITE BLOOD COUNT 10.2 10^3/uL (4.3-11.0)
[2021-06-25] MEDS: NITROGLYCERIN 0.4 MG SL TABS BTL 25'S SL PRN ×2 (08:26→09:45)
[2021-06-25 08:29] LABS: ALBUMIN 3.9 GM/DL (3.2-4.5); BILIRUBIN,TOTAL 0.4 MG/DL (0.1-1.0); CALCIUM 9.6 MG/DL (8.5-10.1); CREATININE SERUM 6.48 MG/DL (0.60-1.30); FIBRIN DEGRADATION PRODUCTS 3.74 UG/ML (0.00-0.49); MAGNESIUM 2.3 MG/DL (1.6-2.4); POTASSIUM 4.7 MMOL/L (3.6-5.0); PROTHROMBIN TIME PATIENT 13.4 SEC (12.2-14.7)
[2021-06-25 08:47] LABS: ABG BASE EXCESS 3.1 MMOL/L (-2.5-2.5); ABG OXYGEN SATURATION 92 % (94-100); ABG PCO2 38 MMHG (35-45); ABG PH 7.46 (7.37-7.43); ABG PO2 57 MMHG (79-93); ABG TCO2 28.1 MMOL/L (21.0-31.0)
[2021-06-25 08:48] LABS: ALLENS TEST YES-POS
[2021-06-25 08:49] LABS: INSPIRED O2 5 L; VENTILATOR NO
--- NOTE | 2021-06-25 09:15 | Diagnostic Imaging Report ---
Indication: Shortness of air. Time Of Exam: 8:59 AM Correlation is made with prior chest from 02/24/2022. Changes of median sternotomy are noted. Dialysis line is tip overlying the right atrium. Extensive bilateral interstitial and airspace pulmonary infiltrates persist and show no real change. No significant effusion or pneumothorax is detected. Impression: Stable bilateral infiltrates when compared to exam from 10 days earlier. Dictated by: Dictated on workstation # [id number]
[2021-06-25 17:35] VITALS: BP 163/95
== END 2021-06-25 17:35 | disposition short-term general hospital (02) ==
LOC: EDUNIT# 07:44 → ER 07:45
DX: J96.21 Acute and chronic respiratory failure with hypoxia (principal); I13.2 Hypertensive heart and chronic kidney disease with heart failure and with stage 5 chronic kidney disease, or end stage renal disease; I50.9 Heart failure, unspecified; N18.6 End stage renal disease; Z20.822 Contact with and (suspected) exposure to COVID-19; Z87.891 Personal history of nicotine dependence
CPT/HCPCS: 36415; 36600; 71045; 80053; 82805; 83735; 84145; 84484; 85025; 85379; 85610; 85730; 86141; 87636; 93005

== ENCOUNTER 2021-06-29 09:26 | Emergency (ER) | payer MEDICAID ==
[~2021-06-29] VITALS: Ht 177 cm; Wt 56.0 kg
[2021-06-29 09:53] LABS: BASOPHILS # (AUTO) 0.1 10^3/uL (0.0-0.1); BASOPHILS % (AUTO) 1 % (0-10); EOSINOPHILS # (AUTO) 0.3 10^3/uL (0.0-0.3); EOSINOPHILS % (AUTO) 5 % (0-10); HEMATOCRIT 27 % (40-54); HEMOGLOBIN 8.6 g/dL (13.3-17.7); LYMPHOCYTES # (AUTO) 1.3 10^3/uL (1.0-4.0); LYMPHOCYTES % (AUTO) 22 % (12-44); MEAN CORPUSCULAR HEMOGLOBIN 28 pg (25-34); MEAN CORPUSCULAR HGB CONC 31 g/dL (32-36); MEAN CORPUSCULAR VOLUME 88 fL (80-99); MEAN PLATELET VOLUME 9.1 fL (9.0-12.2); MONOCYTES # (AUTO) 0.7 10^3/uL (0.0-1.0); MONOCYTES % (AUTO) 12 % (0-12); NEUTROPHILS # (AUTO) 3.7 10^3/uL (1.8-7.8); NEUTROPHILS % (AUTO) 60 % (42-75); PLATELET COUNT 340 10^3/uL (130-400); WHITE BLOOD COUNT 6.1 10^3/uL (4.3-11.0)
[2021-06-29 09:59] LABS: INR 0.9 (0.8-1.4)
[2021-06-29] MEDS ORDERED: hydrALAZINE (APESOLINE) 20 MG/ML VIAL IV ONE (10:00)
[2021-06-29 10:01] LABS: ALBUMIN 3.8 GM/DL (3.2-4.5); POTASSIUM 4.4 MMOL/L (3.6-5.0)
[2021-06-29 10:03] LABS: CALCIUM 9.3 MG/DL (8.5-10.1)
[2021-06-29 10:04] LABS: TOTAL PROTEIN 7.3 GM/DL (6.4-8.2)
--- NOTE | 2021-06-29 10:05 | Diagnostic Imaging Report ---
INDICATION: Chest pain. TECHNIQUE: Single view chest 9:49 AM. CORRELATION STUDY: 06/25/2021 FINDINGS: Poststernotomy change. Right IJ dialysis catheter unchanged. Tip at the high right atrium. Heart size is within normal limits. Calcification of the aortic arch. There has been improvement in the pulmonary vascular congestion, overall edema. Congestive changes do remain. This includes mild residual interstitial edema. No consolidating pulmonary infiltrate or significant effusion. IMPRESSION: 1. Findings of congestive heart failure. However, overall fairly considerably improved from previous study. Dictated by: Dictated on workstation # [id number]
[2021-06-29 10:06] LABS: BILIRUBIN,TOTAL 0.4 MG/DL (0.1-1.0)
[2021-06-29 10:08] LABS: CREATININE SERUM 5.08 MG/DL (0.60-1.30)
--- NOTE | 2021-06-29 10:22 | ED Chest Pain ---
General Chief Complaint: Chest Pain Stated Complaint: CHEST PAIN Nursing Triage Note: Pt here with chest pain and soa with onset this morning; describes the cp as sharp that worsens with deep inspiration. Source: patient Exam Limitations: no limitations History of Present Illness Date Seen by Provider: Jun 29, 2021 Time Seen by Provider: 09:30 Initial Comments Here with report of central chest pain with shortness of air that started this morning. [facility] after hospitalization. He was in [facility] earlier this week for heart failure and chest pain. Does have significant cardiac history and did have bypass last February. He had Covid at the beginning of May. Did do dialysis yesterday and he is on Friday, and Friday schedule. He has not missed dialysis. He did not take his medicines this morning because he was confused as to which he was supposed to take after discharge. He is hypertensive. He was noted to be hypertensive in clinic this morning with central chest pain and shortness of air. He does smoke but is trying to quit. Denies drugs or alcohol. He did receive ASA 324 mg p.o. at the clinic and EMS did apply 1 inch Nitropaste to the anterior chest wall. The combination of these have improved his pain and his blood pressures in the 180s now versus over 200s earlier. Timing/Duration: 1-3 hours, changing over time Severity/Quality: moderate, aching Location: central Radiation: no radiation Activities at Onset: rest Prior CP/Workup: cardiac cath, echocardiography, heart attack Modifying Factors: improves with nitroglycerin, improves with oxygen, improves with rest ASA po INSTALLATION ENGINEER: Yes NTG SL INSTALLATION ENGINEER: Yes Associated Symptoms: No back pain, No nausea/vomiting; shortness of breath; No weakness Allergies and Home Medications Allergies Coded Allergies: No Known Drug Allergies (Unverified , 04/14/11) Patient Home Medication List Home Medication List Reviewed: Yes Aspirin (Aspirin EC) 81 Mg Tablet.dr, 81 MG PO DAILY, (Reported) Entered as Reported by: JALEESA GODWIN on 12/02/16 8402 Lisinopril (Lisinopril) 5 Mg Tablet, 5 MG PO DAILY, (Reported) Entered as Reported by: JALEESA GODWIN on 12/02/16 3860 Review of Systems Review of Systems Constitutional: see HPI; No chills, No fever EENTM: No Symptoms Reported Respiratory: Denies Cough; Shortness of Air Cardiovascular: Chest Pain, Edema Gastrointestinal: Denies Nausea, Denies Vomiting Genitourinary: No Symptoms Reported Musculoskeletal: no symptoms reported All Other Systems Reviewed Negative Unless Noted: Yes Past Sarpoxw-Hryiqe-Vtgjpy Hx Patient Social History Tobacco Use?: Yes Smoking Status: Current Everyday Smoker Substance use?: No Alcohol Use?: No Pt feels they are or have been: No Immunizations Up To Date PED Vaccines UTD: Yes Influenza Vaccine Up-to-Date: Yes; Up-to-Date First/Initial COVID19 Vaccinat: August 2020 Second COVID19 Vaccination Ald[place]: September 2020 Seasonal Allergies Seasonal Allergies: No Past Medical History Surgeries: Yes Coronary Stent, Vascular Surgery, Vasectomy Respiratory: No Cardiac: Yes High Cholesterol Neurological: No Genitourinary: Yes Prostate Problems Gastrointestinal: No Musculoskeletal: No Endocrine: No HEENT: No Cancer: No Psychosocial: No Integumentary: No Blood Disorders: No Adverse Reaction/Blood Tranf: No Family Medical History Reviewed Nursing Family Hx Heart Disease Physical Exam Vital Signs Vital Signs - First Documented 06/29/21 06/29/21 09:33 09:50 Temp 37.6 Pulse 66 Resp 24 B/P (MAP) 189/90 (123) Pulse Ox 96 O2 Delivery Nasal Cannula O2 Flow Rate 2.00 Capillary Refill : Less Than 3 Seconds Height, Weight, BMI Height: 5'10.00" Weight: 124lbs. 5.0oz. 56.867882gs; 17.00 BMI Method:Stated General Appearance: No Apparent Distress, WD/WN HEENT: PERRL/EOMI, Pharynx Normal Neck: Non Tender, Supple Respiratory: Lungs Clear, Normal Breath Sounds Cardiovascular: Regular Rate, Rhythm, No Murmur Gastrointestinal: Non Tender, Soft Extremity: Normal Range of Motion, Non Tender Neurologic/Psychiatric: Alert, Oriented x3 Skin: Normal Color, Warm/Dry Progress/Results/Core Measures Results/Orders Lab Results Laboratory Tests Test 06/29/21 09:37 06/29/21 11:37 Range/Units White Blood Count 6.1 4.3-11.0 10^3/uL Red Blood Count 3.12 L 4.30-5.52 10^6/uL Hemoglobin 8.6 L 13.3-17.7 g/dL Hematocrit 27 L 40-54 % Mean Corpuscular Volume 88 80-99 fL Mean Corpuscular Hemoglobin 28 25-34 pg Mean Corpuscular Hemoglobin Concent 31 L 32-36 g/dL Red Cell Distribution Width 17.8 H 10.0-14.5 % Platelet Count 340 130-400 10^3/uL Mean Platelet Volume 9.1 9.0-12.2 fL Immature Granulocyte % (Auto) 0 % Neutrophils (%) (Auto) 60 42-75 % Lymphocytes (%) (Auto) 22 12-44 % Monocytes (%) (Auto) 12 0-12 % Eosinophils (%) (Auto) 5 0-10 % Basophils (%) (Auto) 1 0-10 % Neutrophils # (Auto) 3.7 1.8-7.8 10^3/uL Lymphocytes # (Auto) 1.3 1.0-4.0 10^3/uL Monocytes # (Auto) 0.7 0.0-1.0 10^3/uL Eosinophils # (Auto) 0.3 0.0-0.3 10^3/uL Basophils # (Auto) 0.1 0.0-0.1 10^3/uL Immature Granulocyte # (Auto) 0.0 0.0-0.1 10^3/uL Prothrombin Time 13.0 12.2-14.7 SEC INR Comment 0.9 0.8-1.4 Activated Partial Thromboplast Time 38 H 24-35 SEC Sodium Level 130 L 135-145 MMOL/L Potassium Level 4.4 3.6-5.0 MMOL/L Chloride Level 92 L 98-107 MMOL/L Carbon Dioxide Level 20 L 21-32 MMOL/L Anion Gap 18 H 5-14 MMOL/L Blood Urea Nitrogen 28 H 7-18 MG/DL Creatinine 5.08 #H 0.60-1.30 MG/DL Estimat Glomerular Filtration Rate 12 BUN/Creatinine Ratio 6 Glucose Level 75 70-105 MG/DL Calcium Level 9.3 8.5-10.1 MG/DL Corrected Calcium 9.5 8.5-10.1 MG/DL Magnesium Level 2.0 1.6-2.4 MG/DL Total Bilirubin 0.4 0.1-1.0 MG/DL Aspartate Amino Transf (AST/SGOT) 11 5-34 U/L Alanine Aminotransferase (ALT/SGPT) 7 0-55 U/L Alkaline Phosphatase 117 40-136 U/L Myoglobin 87.9 10.0-92.0 NG/ML Troponin I 0.094 H 0.096 H <0.028 NG/ML Total Protein 7.3 6.4-8.2 GM/DL Albumin 3.8 3.2-4.5 GM/DL My Orders Orders - GUS LINARES MD Cbc With Automated Diff (06/29/21 09:46) Magnesium (06/29/21 09:46) Chest 1 View, Ap/Pa Only (06/29/21 09:46) Ekg Tracing (06/29/21 09:46) Comprehensive Metabolic Panel (06/29/21 09:46) Myoglobin Serum (06/29/21 09:46) Protime With Inr (06/29/21 09:46) Partial Thromboplastin Time (06/29/21 09:46) O2 (06/29/21 09:46) Monitor-Rhythm Ecg Trace Only (06/29/21 09:46) Lipid Panel (06/30/21 06:00) Troponin I Abi (06/29/21 09:46) Hydralazine Injection (Apresoline Inject (06/29/21 10:00) Troponin I Abi (06/29/21 11:22) Medications Given in ED Current Medications Medications Dose Ordered Sig/Poly Route Start Time Stop Time Status Last Admin Dose Admin Hydralazine HCl 10 mg ONCE ONCE IV 06/29/21 10:00 06/29/21 10:01 DC 06/29/21 09:52 10 MG Vital Signs/I&O 06/29/21 06/29/21 06/29/21 09:33 09:50 10:10 Temp 37.6 Pulse 66 66 Resp 24 18 B/P (MAP) 189/90 (123) 159/90 Pulse Ox 96 99 O2 Delivery Nasal Cannula Nasal Cannula Nasal Cannula O2 Flow Rate 2.00 2.00 Blood Pressure Mean: 113 Progress Progress Note : Progress Note Seen and evaluated. IV by outside clinic. Has already received nitroglycerin and aspirin. We will do chest pain protocol and I will give him hydralazine 10 mg IV. We will continue Nitropaste at this point. Monitor patient. 1030: Doing better but blood pressure starting to come back up. We will go ahead and give his dose of nifedipine and hydralazine from the bottles he has currently. Monitor patient. 1255: We have repeated patient's troponin. We also gave him his morning medicine that he had not taken. I have watched him throughout the visit. Chest pain has resolved. He is feeling much better now. He does not need emergent dialysis. There is no significant shift on his troponin. I did review his medicines with him and he understands those better as well as the significant other. Discharged home with return precautions. Patient and family verbalized understanding instructions and agreement with plan. Initial ECG Impression Date: Jun 29, 2021 Initial ECG Impression Time: 09:29 Initial ECG Rate: 66 Initial ECG Rhythm: Normal Sinus Comment Sinus rhythm with left atrial abnormality. LVH noted. Similar to previous of 06/28/2020 although slower rate. Interpreted by me. Diagnostic Imaging Diagonstic Imaging: Xray Plain Films/CT/US/NM/MRI: chest Comments [facility], [place] NAME: ACE ROSENTHAL MED REC#: [id number] PT STATUS: REG ER : 1960 PHYSICIAN: GUS LINARES MD ADMIT DATE: 06/29/21/ER Draft Date of Exam:06/29/21 CHEST 1 VIEW, AP/PA ONLY INDICATION: Chest pain. TECHNIQUE: Single view chest 9:49 AM. CORRELATION STUDY: 06/25/2021 FINDINGS: Poststernotomy change. Right IJ dialysis catheter unchanged. Tip at the high right atrium. Heart size is within normal limits. Calcification of the aortic arch. There has been improvement in the pulmonary vascular congestion, overall edema. Congestive changes do remain. This includes mild residual interstitial edema. No consolidating pulmonary infiltrate or significant effusion. IMPRESSION: 1. Findings of congestive heart failure. However, overall fairly considerably improved from previous study. Dictated on workstation # [id number] Dict: 06/29/21 0959 Trans: 06/29/21 1004 [facility]ICK [id number] Interpreted by: SNEHAL GARCES DO Electronically signed by: Departure Impression Primary Impression: Uncontrolled hypertension Additional Impressions: Chest pain Qualified Codes: R07.9 - Chest pain, unspecified End stage renal disease on dialysis Disposition: HOME, SELF-CARE Condition: Improved Departure-Patient Inst. Decision time for Depature: 12:56 Referrals: [facility]/MARCELLE (PCP) Primary Care Physician NICK TIRADO (Family) Primary Care Physician Patient Instructions: Chest Pain (DC), High Blood Pressure ED, End Stage Kidney Disease (DC) Add. Discharge Instructions: All discharge instructions reviewed with patient and/or family. Voiced under standing. Continue dialysis as prescribed. Take medications as prescribed and discussed. Follow-up with your doctor next week for recheck and further evaluation. Return for worse pain, fever, vomiting, weakness, breathing problems, chest pain or other concerns as needed. Copy Copies To 1: SONY GARCIA TIMOTHY D MD Jun 29, 2021 10:21
[2021-06-29 13:00] VITALS: BP 121/72
== END 2021-06-29 13:00 | disposition home or self-care (01) ==
LOC: EDUNIT# 09:26 → ER 09:28
DX: I12.0 Hypertensive chronic kidney disease with stage 5 chronic kidney disease or end stage renal disease (principal); N18.6 End stage renal disease; F17.200 Nicotine dependence, unspecified, uncomplicated; Z99.2 Dependence on renal dialysis; Z95.1 Presence of aortocoronary bypass graft; Z86.16 Personal history of COVID-19
CPT/HCPCS: 36415; 71045; 80053; 83735; 83874; 84484; 85025; 85610; 85730; 93005; 93041

== ENCOUNTER 2021-07-21 03:43 | Emergency (ER) | payer MEDICAID ==
[~2021-07-21] VITALS: Ht 177 cm; Wt 56.0 kg
[2021-07-21] MEDS ORDERED: HYDR-3924 (03:58)
[2021-07-21] MEDS ORDERED: PANT40TA52 (03:58)
[2021-07-21] MEDS ORDERED: TORS20TA3 (03:58)
[2021-07-21] MEDS ORDERED: NIFE-24 (03:58)
[2021-07-21] MEDS ORDERED: SERT-413 (03:58)
--- NOTE | 2021-07-21 04:11 | ED Respiratory ---
General Chief Complaint: Respiratory Problems Stated Complaint: SOA Nursing Triage Note: brought in by [facility] for soa x "several days" anxiety. Source: patient, EMS Exam Limitations: no limitations (JASVIR STARR MD) History of Present Illness Date Seen by Provider: Jul 21, 2021 Time Seen by Provider: 03:58 Initial Comments Patient is a 61-year-old male who presents to the emergency department today with a chief complaint of shortness of breath. Patient states he woke up earlier this morning very short of breath became very anxious. He and his girlfriend decided to call the ambulance. He has a history of hypertension/coronary artery disease status post bypass also with end-stage renal disease on hemodialysis. He dialyzes Friday and Saturdays. He states his last dialysis was on he completed an entire course. But they have left him a little "heavy" at his last 2 sessions. He denies chest pain this morning. He is obviously very anxious, very dyspneic. Actually noted to be trembling a little bit in his upper extremities. EMS reports that he was hypoxic on their initial arrival. They ran a DuoNeb with 6 L of oxygen in route. They reported clear lung sounds. Patient denies any swelling anywhere. He has had a little extra fruit and a fairly heavy meal for dinner. He has had diarrhea for about 3 days. He states he took his blood pressure medicines last night at around 10 PM. He is quite hypertensive for EMS in the 200s over 115 range. No black or bloody stools reported. He has been on dialysis since February. His dialysis group is through [facility]. No fevers or chills. He does have a productive cough of "dark" sputum. He attributes the darkness to his smoking. Nothing bloody. All other review of systems reviewed and negative except as stated. Timing/Duration: just prior to arrival Severity: severe Prior Episodes/Possible Cause: frequent episodes Modifying Factors: Improves With Albuterol Nebulizer Associated Symptoms: lightheadedness, shortness of breath, other (Diarrhea) (JASVIR STARR MD) Allergies and Home Medications Allergies Coded Allergies: No Known Drug Allergies (Unverified , 04/14/11) Patient Home Medication List Home Medication List Reviewed: Yes (JASVIR STARR MD) Aspirin (Aspirin EC) 81 Mg Tablet.dr, 81 MG PO DAILY, (Reported) Entered as Reported by: JALEESA GODWIN on 12/02/16 135 Hydralazine HCl (Hydralazine HCl) 50 Mg Tablet, (Reported) Entered as Reported by: KERI SAUCEDO on 07/21/21357 Last Action: New Order Lisinopril (Lisinopril) 5 Mg Tablet, 5 MG PO DAILY, (Reported) Entered as Reported by: JALEESA GODWIN on 12/02/161352 Nifedipine (Nifedipine ER) 60 Mg Tab.er.24, (Reported) Entered as Reported by: KERI SAUCEDO on 07/21/21357 Last Action: New Order Pantoprazole Sodium (Pantoprazole Sodium) 40 Mg Tablet.dr, (Reported) Entered as Reported by: KERI SAUCEDO on 07/21/21357 Last Action: New Order Sertraline HCl (Sertraline HCl) 50 Mg Tablet, (Reported) Entered as Reported by: KERI SAUCEDO on 07/21/21357 Last Action: New Order Torsemide (Torsemide) 20 Mg Tablet, (Reported) Entered as Reported by: KERI SAUCEDO on 07/21/21357 Last Action: New Order Review of Systems Review of Systems Constitutional: see HPI EENTM: no symptoms reported Respiratory: cough, phlegm, short of breath Cardiovascular: no symptoms reported Gastrointestinal: diarrhea Genitourinary: no symptoms reported Musculoskeletal: no symptoms reported Skin: no symptoms reported Psychiatric/Neurological: Anxiety (JASVIR STARR MD) All Other Systems Reviewed Negative Unless Noted: Yes (JASVIR STARR MD) Past Tbmrdvw-Tpdrrj-Hndrhl Hx Patient Social History Tobacco Use?: Yes Tobacco type used: Cigarettes Substance use?: No Alcohol Use?: No Pt feels they are or have been: No (JASVIR STARR MD) Immunizations Up To Date PED Vaccines UTD: Yes First/Initial COVID19 Vaccinat: August 2020 Second COVID19 Vaccination Alden: September 2020 (JASVIR STARR MD) Seasonal Allergies Seasonal Allergies: No (JASVIR STARR MD) Past Medical History Surgery/Hospitalization HX: cabg, cardiac stent, right murhuker, left fistula, htn, high cholesterol, chf, esrd, hd ,,sa Surgeries: Yes Coronary Stent, Vascular Surgery, Vasectomy Respiratory: No Cardiac: Yes High Cholesterol Neurological: No Genitourinary: Yes Prostate Problems Gastrointestinal: No Musculoskeletal: No Endocrine: No HEENT: No Cancer: No Psychosocial: No Integumentary: No Blood Disorders: No Adverse Reaction/Blood Tranf: No (JASVIR STARR MD) Family Medical History Heart Disease (JASVIR STARR MD) Physical Exam Vital Signs - First Documented 07/21/21 03:46 Temp 37.6 Pulse 91 Resp 20 B/P (MAP) 235/117 (156) Pulse Ox 92 O2 Delivery Nasal Cannula O2 Flow Rate 6.00 (BERRY PALMA MD) Capillary Refill : Less Than 3 Seconds (JASVIR STARR MD) Height: 5'10.00" Weight: 124lbs. 5.0oz. [id number]; 17.00 BMI Method:Stated General Appearance: WD/WN, moderate distress Eyes: Bilateral Eye Normal Inspection, Bilateral Eye PERRL, Bilateral Eye EOMI HEENT: PERRL/EOMI Respiratory: lungs clear, normal breath sounds, no accessory muscle use, other (Slightly labored breathing with his anxiety) Cardiovascular: regular rate, rhythm (Rate of 90s), other (No lower extremity edema) Gastrointestinal: normal bowel sounds, non tender, soft Extremities: normal range of motion, non-tender, normal inspection, no pedal edema, other (Palpable thrill left upper extremity) Neurologic/Psychiatric: alert, oriented x 3, other (Very anxious) Skin: normal color, warm/dry (JASVIR STARR MD) Progress/Results/Core Measures Suspected Sepsis SIRS Temperature: Pulse: 91 Respiratory Rate: 20 Laboratory Tests 07/21/21 04:05: White Blood Count 9.6 Blood Pressure 235 /117 Mean: 156 Laboratory Tests 07/21/21 04:05: Creatinine 5.79H, Platelet Count 269 (JASVIR STARR MD) Results/Orders Lab Results Laboratory Tests Test 07/21/21 04:05 Range/Units White Blood Count 9.6 4.3-11.0 10^3/uL Red Blood Count 3.46 L 4.30-5.52 10^6/uL Hemoglobin 9.6 L 13.3-17.7 g/dL Hematocrit 30 L 40-54 % Mean Corpuscular Volume 88 80-99 fL Mean Corpuscular Hemoglobin 28 25-34 pg Mean Corpuscular Hemoglobin Concent 32 32-36 g/dL Red Cell Distribution Width 17.9 H 10.0-14.5 % Platelet Count 269 130-400 10^3/uL Mean Platelet Volume 9.4 9.0-12.2 fL Immature Granulocyte % (Auto) 0 % Neutrophils (%) (Auto) 73 42-75 % Lymphocytes (%) (Auto) 14 12-44 % Monocytes (%) (Auto) 7 0-12 % Eosinophils (%) (Auto) 6 0-10 % Basophils (%) (Auto) 1 0-10 % Neutrophils # (Auto) 7.0 1.8-7.8 10^3/uL Lymphocytes # (Auto) 1.3 1.0-4.0 10^3/uL Monocytes # (Auto) 0.7 0.0-1.0 10^3/uL Eosinophils # (Auto) 0.5 H 0.0-0.3 10^3/uL Basophils # (Auto) 0.1 0.0-0.1 10^3/uL Immature Granulocyte # (Auto) 0.0 0.0-0.1 10^3/uL Sodium Level 134 L 135-145 MMOL/L Potassium Level 5.6 H 3.6-5.0 MMOL/L Chloride Level 95 L 98-107 MMOL/L Carbon Dioxide Level 17 L 21-32 MMOL/L Anion Gap 22 H 5-14 MMOL/L Blood Urea Nitrogen 40 H 7-18 MG/DL Creatinine 5.79 H 0.60-1.30 MG/DL Estimat Glomerular Filtration Rate 10 BUN/Creatinine Ratio 7 Glucose Level 88 70-105 MG/DL Calcium Level 9.6 8.5-10.1 MG/DL (BERRY PALMA MD) My Orders Orders - BERRY PALMA MD Hydralazine Injection (Apresoline Inject (07/21/21 07:00) Hydralazine Injection (Apresoline Inject (07/21/21 09:00) (BERRY PALMA MD) Medications Given in ED Current Medications Medications Dose Ordered Sig/Poly Route Start Time Stop Time Status Last Admin Dose Admin Acetaminophen 1,000 mg ONCE ONCE PO 07/21/21 06:00 07/21/21 06:01 DC 07/21/21 06:03 1,000 MG Hydralazine HCl 10 mg ONCE ONCE IV 07/21/21 04:30 07/21/21 04:31 DC 07/21/21 04:31 10 MG Hydralazine HCl 10 mg ONCE ONCE IV 07/21/21 06:00 07/21/21 06:01 DC 07/21/21 06:03 10 MG Hydralazine HCl 10 mg ONCE ONCE IV 07/21/21 07:00 07/21/21 07:01 DC 07/21/21 07:01 10 MG Nitroglycerin 1 inch ONCE ONCE TOP 07/21/21 05:15 07/21/21 05:16 DC 07/21/21 05:15 1 INCH (BERRY PALMA MD) Vital Signs/I&O 07/21/21 07/21/21 03:46 03:46 Temp 37.6 Pulse 91 Resp 20 B/P (MAP) 235/117 (156) Pulse Ox 92 O2 Delivery Nasal Cannula Nasal Cannula O2 Flow Rate 6.00 (BERRY PALMA MD) Vital Signs/I&O Capillary Refill : Less Than 3 Seconds (JASVIR STARR MD) Blood Pressure Mean: 156 Progress Note #1: Time: 05:05 Progress Note After Hydralazine BP 207/107; hes still quite anxious appearing. Resps at about 26; O2 on 5L 92-95%; pulse in the 90's; CXR reveals significant pulmonary edema. Will call and speak with Nephrology office assistant receptionist through his docs at [facility]. 0511 Discussion with fireworks assembly supervisor, Dr. Vivi Hutson. She recommends repeating the dose of hydralazine. She prefers that the patient be admitted for inpatient stabilization of blood pressure and pulmonary edema. She may have to dialyze him several days in a row. She advised that the dialysis nurses would be very uncomfortable with blood pressures in that range and would take him back to the emergency department for admission to the hospital for management. [facility] transfer line is getting a hospitalist for admission at this time. Progress Note #2: Time: 05:50 Progress Note Discussed with Dr Arnold who accepts the patient for admission. pending now call back from [facility] with bed assignment (JASVIR STARR MD) Progress Note : Time: 08:53 Progress Note I assumed care of this patient from Dr. Starr at shift change. He was still experiencing rather high blood pressures, sometimes exceeding 200 systolic. He received an additional 2 doses of hydralazine 10 mg IV under my care. EMS is now here to transport the patient. Lung sounds were clear to auscultation. (BERRY PALMA MD) ECG Initial ECG Impression Date: Jul 21, 2021 Initial ECG Impression Time: 03:52 Initial ECG Rate: 89 Initial ECG Rhythm: Normal Sinus Initial ECG Intervals ID interval 154 QRS 98 QTC 509 Comment Peaked T waves noted over the precordium, no ectopy, no ST segment elevation or depression is observed there is slight baseline wander. He does have a prolonged QT interval and evidence of left ventricular hypertrophy (JASVIR STARR MD) Diagnostic Imaging Diagonstic Imaging: Xray Plain Films/CT/US/NM/MRI: chest Comments Chest xray: significant pulmonary edema (JASVIR STARR MD) Follow-up with PCP to: Discuss Further Options (JASVIR STARR MD) Critical Care Note Critical Care Start Time: 03:58 Stop Time: 05:24 Total Time (minutes) 40 minutes critical care time in the evaluation and management of this patient with hypertensive emergency, hypoxia, pulmonary edema. Time includes management of hypertension with IV medication, supplemental oxygen, review and interpretation of laboratory studies. Review and interpretation of x-ray. Review of the medical record. Discussion with nephrology at [facility]. Discussion with hospitalist at [facility]. (JASVIR STARR MD) Departure Impression Primary Impression: End stage renal disease on dialysis Additional Impressions: Pulmonary edema Qualified Codes: J81.0 - Acute pulmonary edema Hypertensive emergency Hypoxia Disposition: 02 XFER SHT-TRM HOSP Condition: Stable Transfer Transfer Reason: Exceeds level of care Time Spoke to Accepting Phy: 05:50 Transfer Progress Notes Discussed with Dr Vivi Adame, recommends transfer to [facility] for inpatient HD Discussed with Dr Arnold who accepts for admissin at 0550 Transfer Facility: [facility] Method of Transfer: EMS (JASVIR STARR MD) Departure-Patient Inst. Referrals: [facility] [place]) Primary Care Physician NICK TIRADO (Family) Primary Care Physician JASVIR STARR MD Jul 21, 2021 04:11 BERRY PALMA MD Jul 21, 2021 08:54
[2021-07-21 04:21] LABS: BASOPHILS # (AUTO) 0.1 10^3/uL (0.0-0.1); BASOPHILS % (AUTO) 1 % (0-10); EOSINOPHILS # (AUTO) 0.5 10^3/uL (0.0-0.3); EOSINOPHILS % (AUTO) 6 % (0-10); HEMATOCRIT 30 % (40-54); HEMOGLOBIN 9.6 g/dL (13.3-17.7); LYMPHOCYTES # (AUTO) 1.3 10^3/uL (1.0-4.0); LYMPHOCYTES % (AUTO) 14 % (12-44); MEAN CORPUSCULAR HEMOGLOBIN 28 pg (25-34); MEAN CORPUSCULAR HGB CONC 32 g/dL (32-36); MEAN CORPUSCULAR VOLUME 88 fL (80-99); MEAN PLATELET VOLUME 9.4 fL (9.0-12.2); MONOCYTES # (AUTO) 0.7 10^3/uL (0.0-1.0); MONOCYTES % (AUTO) 7 % (0-12); NEUTROPHILS % (AUTO) 73 % (42-75); PLATELET COUNT 269 10^3/uL (130-400); WHITE BLOOD COUNT 9.6 10^3/uL (4.3-11.0)
[2021-07-21 04:25] LABS: POTASSIUM 5.6 MMOL/L (3.6-5.0)
[2021-07-21 04:26] LABS: CALCIUM 9.6 MG/DL (8.5-10.1)
[2021-07-21 04:30] LABS: CREATININE SERUM 5.79 MG/DL (0.60-1.30)
[2021-07-21] MEDS ORDERED: hydrALAZINE (APESOLINE) 20 MG/ML VIAL IV ONE ×4 (04:30→09:00)
[2021-07-21] MEDS ORDERED: NITROGLYCERIN 2% OINT 1 GM UNIT DOSE PACKET TOP ONE (05:15)
--- NOTE | 2021-07-21 05:47 | Diagnostic Imaging Report ---
CHEST 1 VIEW, AP/PA ONLY Indication: Shortness of breath Comparison: 06/29/2021 Findings: Stable right IJ dual-lumen hemodialysis catheter. Development of bilateral interstitial and airspace opacities throughout both lungs. No pleural effusion or pneumothorax. Stable cardiomegaly. Impression: 1. Moderate pulmonary edema has developed in the interim. Dictated by: Dictated on workstation # [id number]
[2021-07-21] MEDS ORDERED: ACETAMINOPHEN 500 MG TAB (TYLENOL) PO ONE (06:00)
[2021-07-21 09:01] VITALS: BP 203/112
== END 2021-07-21 09:01 | disposition short-term general hospital (02) ==
LOC: EDUNIT# 03:43 → ER 03:44
DX: I12.0 Hypertensive chronic kidney disease with stage 5 chronic kidney disease or end stage renal disease (principal); N18.6 End stage renal disease; I16.1 Hypertensive emergency; J81.1 Chronic pulmonary edema; R09.02 Hypoxemia; Z72.0 Tobacco use
CPT/HCPCS: 36415; 71045; 80048; 85025; 93005

== ENCOUNTER → 2021-08-05 | Emergency (ER) | payer MEDICAID ==
[~2021-08-05] MED LIST changes: +HYDR-3924; +LABETALOL HCL 20 MG/4 ML VIAL IV ONE; +LORazepam INJ 2 MG/ML (ATIVAN) VIAL IVP ONE; +NIFE-24; +NITROGLYCERIN 2% OINT 1 GM UNIT DOSE PACKET TOP ONE; +PANT40TA52; +SERT-413; +TORS20TA3; +hydrALAZINE (APESOLINE) 20 MG/ML VIAL IV ONE; +morphine INJ 10 MG/ML 1ML (SYR OR VIAL) IVP STA
[2021-08-05 21:54] LABS: BASOPHILS # (AUTO) 0.1 10^3/uL (0.0-0.1); BASOPHILS % (AUTO) 1 % (0-10); EOSINOPHILS # (AUTO) 0.5 10^3/uL (0.0-0.3); EOSINOPHILS % (AUTO) 6 % (0-10); HEMATOCRIT 27 % (40-54); HEMOGLOBIN 8.7 g/dL (13.3-17.7); LYMPHOCYTES # (AUTO) 1.3 10^3/uL (1.0-4.0); LYMPHOCYTES % (AUTO) 17 % (12-44); MEAN CORPUSCULAR HEMOGLOBIN 28 pg (25-34); MEAN CORPUSCULAR HGB CONC 33 g/dL (32-36); MEAN CORPUSCULAR VOLUME 85 fL (80-99); MEAN PLATELET VOLUME 8.6 fL (9.0-12.2); MONOCYTES # (AUTO) 0.7 10^3/uL (0.0-1.0); MONOCYTES % (AUTO) 10 % (0-12); NEUTROPHILS # (AUTO) 4.7 10^3/uL (1.8-7.8); NEUTROPHILS % (AUTO) 65 % (42-75); PLATELET COUNT 270 10^3/uL (130-400); WHITE BLOOD COUNT 7.2 10^3/uL (4.3-11.0)
[2021-08-05 22:06] LABS: ALBUMIN 3.8 GM/DL (3.2-4.5); POTASSIUM 3.7 MMOL/L (3.6-5.0)
[2021-08-05 22:07] LABS: CALCIUM 10.1 MG/DL (8.5-10.1)
[2021-08-05 22:08] LABS: TOTAL PROTEIN 7.2 GM/DL (6.4-8.2)
[2021-08-05 22:10] LABS: BILIRUBIN,TOTAL 0.3 MG/DL (0.1-1.0)
[2021-08-05 22:12] LABS: CREATININE SERUM 5.01 MG/DL (0.60-1.30)
[2021-08-05 22:15] LABS: MAGNESIUM 2.1 MG/DL (1.6-2.4)
--- NOTE | 2021-08-05 22:38 | Diagnostic Imaging Report ---
EXAMINATION: Chest 1 view. HISTORY: Shortness of breath. COMPARISON: 07/21/2021. FINDINGS: Right internal jugular approach central line is seen with the tip overlying the right atrium. There is improved aeration in the bilateral upper lungs with continued patchy and consolidative opacities in the mid and lower lungs. Stable cardiac silhouette with post CABG changes. Slightly improved central pulmonary vascular congestion is noted. No large pleural effusion or pneumothorax. IMPRESSION: Interval improved appearance of pulmonary edema with improved aeration in the upper lobes. Recommend continued follow-up. Dictated by: Dictated on workstation # [id number]
--- NOTE | 2021-08-06 00:06 | ED General ---
General Chief Complaint: Cardiac/General Problems Stated Complaint: SOB/HEADACHE Nursing Triage Note: PT TO ER BY [facility] WITH C/P SOB AND A HEADACHE Source of Information: Patient, EMS, Old Records Exam Limitations: No Limitations History of Present Illness Date Seen by Provider: August 05, 2021 Time Seen by Provider: 21:41 Initial Comments Mr. Rosenthal is a 61-year-old gentleman who presents to the emergency room via EMS with complaints of shortness of breath and headache. He is rather hypertensive with systolic blood pressures above 200. He is a dialysis patient who receives dialysis Friday, , and Friday. He reports having an extra treatment of dialysis this week with extra fluid removal. He is presently stable on 6 L nasal cannula which is his chronic oxygen usage. He complains of headache for the past couple of days. He is scheduled to have a peritoneal dialysis catheter placed at [facility] tomorrow. He admits to being anxious. He reports that his antidepressant was stopped about 2 weeks ago. He has no cough or fever. He denies chest pain to both this provider and nursing staff. He reports taking his usual evening medications before 7:[address] Brea Hutson) is his gamma operator. Nick Louis is his primary care provider. Allergies and Home Medications Allergies Coded Allergies: No Known Drug Allergies (Unverified , 04/14/11) Patient Home Medication List Home Medication List Reviewed: Yes Aspirin (Aspirin EC) 81 Mg Tablet.dr, 81 MG PO DAILY, (Reported) Entered as Reported by: JALEESA GODWIN on 12/02/16 1353 Hydralazine HCl (Hydralazine HCl) 50 Mg Tablet, (Reported) Entered as Reported by: KERI SAUCEDO on 07/21/21357 Lisinopril (Lisinopril) 5 Mg Tablet, 5 MG PO DAILY, (Reported) Entered as Reported by: JALEESA GODWIN on 12/02/16 1353 Nifedipine (Nifedipine ER) 60 Mg Tab.er.24, (Reported) Entered as Reported by: KERI SAUCEDO on 07/21/21357 Pantoprazole Sodium (Pantoprazole Sodium) 40 Mg Tablet., (Reported) Entered as Reported by: KERI SAUCEDO on 07/21/21357 Sertraline HCl (Sertraline HCl) 50 Mg Tablet, (Reported) Entered as Reported by: KERI SAUCEDO on 07/21/21357 Torsemide (Torsemide) 20 Mg Tablet, (Reported) Entered as Reported by: KERI SAUCEDO on 07/21/21357 Review of Systems Review of Systems Constitutional: no symptoms reported EENTM: no symptoms reported Respiratory: see HPI Cardiovascular: no symptoms reported Gastrointestinal: no symptoms reported Genitourinary: see HPI Musculoskeletal: no symptoms reported Skin: no symptoms reported Psychiatric/Neurological: See HPI Hematologic/Lymphatic: No Symptoms Reported Immunological/Allergic: no symptoms reported Past Jedluyd-Xujrdr-Ramfdm Hx Patient Social History Tobacco Use?: Yes Tobacco type used: Cigarettes Smoking Status: Light Tobacco Smoker Use of E-Cig and/or Vaping dev: No Substance use?: No Additional substance use comme: FORMER [place] Alcohol Use?: No Pt feels they are or have been: No Immunizations Up To Date PED Vaccines UTD: Yes First/Initial COVID19 Vaccinat: August 2020 Second COVID19 Vaccination Alden: September 2020 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 Seasonal Allergies Seasonal Allergies: No Past Medical History Surgery/Hospitalization HX: cabg, cardiac stent, right murhuker, left fistula, htn, high cholesterol, chf, esrd, hd tu,th,sa Surgeries: Yes Coronary Stent, Vascular Surgery, Vasectomy Respiratory: No Cardiac: Yes High Cholesterol Neurological: No Genitourinary: Yes Prostate Problems, Renal Failure, Dialysis Gastrointestinal: No Musculoskeletal: No Endocrine: No HEENT: No Cancer: No Psychosocial: Yes Anxiety, Depression Integumentary: No Blood Disorders: No Adverse Reaction/Blood Tranf: No Family Medical History Heart Disease Physical Exam Vital Signs Vital Signs - First Documented 08/05/21 21:38 Temp 36.8 Pulse 77 Resp 20 B/P (MAP) 212/107 (142) Pulse Ox 98 O2 Delivery Nasal Cannula O2 Flow Rate 6.00 Capillary Refill : Height, Weight, BMI Height: 5'10.00" Weight: 124lbs. 5.0oz. [id number]; 17.00 BMI Method:Stated General Appearance: WD/WN, Mild Distress, Thin HEENT: PERRL/EOMI, Normal ENT Inspection Neck: Normal Inspection Respiratory: Lungs Clear, Normal Breath Sounds, No Accessory Muscle Use, No Respiratory Distress Cardiovascular: Regular Rate, Rhythm, No Edema, No Murmur Gastrointestinal: Normal Bowel Sounds, Non Tender, Soft Extremity: Normal Inspection, Non Tender Neurologic/Psychiatric: Alert, Oriented x3, No Motor/Sensory Deficits, Other (Anxious) Skin: Normal Color, Warm/Dry Progress/Results/Core Measures Suspected Sepsis SIRS Temperature: Pulse: 77 Respiratory Rate: 20 Laboratory Tests 08/05/21 21:45: White Blood Count 7.2 Blood Pressure 212 /107 Mean: 142 Laboratory Tests 08/05/21 21:45: Creatinine 5.01H, Platelet Count 270, Total Bilirubin 0.3 Results/Orders Lab Results Laboratory Tests Test 08/05/21 21:45 Range/Units White Blood Count 7.2 4.3-11.0 10^3/uL Red Blood Count 3.12 L 4.30-5.52 10^6/uL Hemoglobin 8.7 L 13.3-17.7 g/dL Hematocrit 27 L 40-54 % Mean Corpuscular Volume 85 80-99 fL Mean Corpuscular Hemoglobin 28 25-34 pg Mean Corpuscular Hemoglobin Concent 33 32-36 g/dL Red Cell Distribution Width 16.6 H 10.0-14.5 % Platelet Count 270 130-400 10^3/uL Mean Platelet Volume 8.6 L 9.0-12.2 fL Immature Granulocyte % (Auto) 0 % Neutrophils (%) (Auto) 65 42-75 % Lymphocytes (%) (Auto) 17 12-44 % Monocytes (%) (Auto) 10 0-12 % Eosinophils (%) (Auto) 6 0-10 % Basophils (%) (Auto) 1 0-10 % Neutrophils # (Auto) 4.7 1.8-7.8 10^3/uL Lymphocytes # (Auto) 1.3 1.0-4.0 10^3/uL Monocytes # (Auto) 0.7 0.0-1.0 10^3/uL Eosinophils # (Auto) 0.5 H 0.0-0.3 10^3/uL Basophils # (Auto) 0.1 0.0-0.1 10^3/uL Immature Granulocyte # (Auto) 0.0 0.0-0.1 10^3/uL Sodium Level 130 L 135-145 MMOL/L Potassium Level 3.7 3.6-5.0 MMOL/L Chloride Level 88 L 98-107 MMOL/L Carbon Dioxide Level 22 21-32 MMOL/L Anion Gap 20 H 5-14 MMOL/L Blood Urea Nitrogen 41 H 7-18 MG/DL Creatinine 5.01 H 0.60-1.30 MG/DL Estimat Glomerular Filtration Rate 12 BUN/Creatinine Ratio 8 Glucose Level 87 70-105 MG/DL Calcium Level 10.1 8.5-10.1 MG/DL Corrected Calcium 10.3 H 8.5-10.1 MG/DL Magnesium Level 2.1 1.6-2.4 MG/DL Total Bilirubin 0.3 0.1-1.0 MG/DL Aspartate Amino Transf (AST/SGOT) 16 5-34 U/L Alanine Aminotransferase (ALT/SGPT) 7 0-55 U/L Alkaline Phosphatase 107 40-136 U/L B-Type Natriuretic Peptide 4087.7 H <100.0 PG/ML Total Protein 7.2 6.4-8.2 GM/DL Albumin 3.8 3.2-4.5 GM/DL My Orders Orders - BERRY PALMA MD Bnp [place] (08/05/21 21:48) Cbc With Automated Diff (08/05/21 21:48) Comprehensive Metabolic Panel (08/05/21 21:48) Magnesium (08/05/21 21:48) Chest 1 View, Ap/Pa Only (08/05/21 21:48) Lorazepam Injection (Ativan Injection) (08/05/21 22:00) Ed Iv/Invasive Line Start (08/05/21 21:48) Nitroglycerin Ointment (Nitrobid Ointme (08/05/21 22:45) Morphine Injection (Morphine Injection (08/05/21 23:43) Hydralazine Injection (Apresoline Inject (08/06/21 00:00) Hydralazine Injection (Apresoline Inject (08/06/21 01:00) Ekg Tracing (08/06/21 01:09) Labetalol Injection (Normodyne Injection (08/06/21 01:45) Medications Given in ED Current Medications Medications Dose Ordered Sig/Poly Route Start Time Stop Time Status Last Admin Dose Admin Hydralazine HCl 10 mg ONCE ONCE IV 08/06/21 00:00 08/06/21 00:01 DC 08/06/21 00:15 10 MG Hydralazine HCl 10 mg ONCE ONCE IV 08/06/21 01:00 08/06/21 01:01 DC 08/06/21 01:15 10 MG Labetalol HCl 20 mg ONCE ONCE IV 08/06/21 01:45 08/06/21 01:46 DC 08/06/21 01:52 20 MG Lorazepam 0.5 mg ONCE ONCE IVP 08/05/21 22:00 08/05/21 22:01 DC 08/05/21 22:01 0.5 MG Nitroglycerin 1 inch ONCE ONCE TOP 08/05/21 22:45 08/05/21 22:46 DC 08/05/21 22:37 1 INCH Vital Signs/I&O 08/05/21 08/06/21 21:38 01:07 Temp 36.8 36.8 Pulse 77 80 Resp 20 20 B/P (MAP) 212/107 (142) 215/110 Pulse Ox 98 97 O2 Delivery Nasal Cannula Nasal Cannula O2 Flow Rate 6.00 6.00 6.00 Capillary Refill : Blood Pressure Mean: 142 Progress Note #1: Time: 00:03 Progress Note Patient was treated with Ativan to calm his anxiety while we were pursuing work- up. This did improve his shortness of breath and anxiety, but did not resolve his hypertension. Nitroglycerin paste was applied. He had a modest reduction in blood pressure for about an hour, but now blood pressure is increasing again. A dose of IV hydralazine is being administered. Chest x-ray revealed some pulmonary edema/congestion, improved from prior x-ray but worse than x-ray from June. BNP was elevated, although not as high as prior levels. Patient is oxygenating well on his current nasal cannula. Given his persistent pulmonary edema and uncontrolled hypertension, I have suggested that we transfer him to [facility] for further evaluation and monitoring prior to his scheduled procedure. Patient is agreeable. Patient complains of headache which will be treated by morphine 2 mg IV. Progress Note #2: Time: 00:22 Progress Note I discussed case with Dr. Santiago, hospitalist at [facility] who graciously accepts transfer. Last 3 chest x-rays are being clouded to [facility] for their convenience. Progress Note #3: Time: 01:43 Progress Note Systolic blood pressure is still in the 210s after 2 doses of hydralazine by IV route. Labetalol 20 mg IV will be administered as an alternative. EMS has been dispatched for transfer. Diagnostic Imaging Diagonstic Imaging: Xray Plain Films/CT/US/NM/MRI: chest Comments Chest x-ray viewed by me and compared with priors. Report reviewed. See report below: NAME: ACE ROSENTHAL [facility] REC#: [id number] PT STATUS: REG ER : 1960 PHYSICIAN: BERRY PALMA MD ADMIT DATE: 08/05/21/ER Signed Date of Exam:08/05/21 CHEST 1 VIEW, AP/PA ONLY EXAMINATION: Chest 1 view. HISTORY: Shortness of breath. COMPARISON: 07/21/2021. FINDINGS: Right internal jugular approach central line is seen with the tip overlying the right atrium. There is improved aeration in the bilateral upper lungs with continued patchy and consolidative opacities in the mid and lower lungs. Stable cardiac silhouette with post CABG changes. Slightly improved central pulmonary vascular congestion is noted. No large pleural effusion or pneumothorax. IMPRESSION: Interval improved appearance of pulmonary edema with improved aeration in the upper lobes. Recommend continued follow-up. Dictated by: Dictated on workstation # [id number] Dict: 08/05/212233 Trans: 08/05/212239 PJE [id number] Interpreted by: CANDY CRONIN DO Electronically signed by: CANDY CRONIN DO 08/05/212239 Departure Impression Primary Impression: Hypertensive urgency Additional Impressions: Acute headache Qualified Codes: R51.9 - Headache, unspecified End stage renal disease on dialysis Anxiety Disposition: XFER SHT-TRM HOSP Condition: Stable Transfer Transfer Reason: Exceeds level of care Time Spoke to Accepting Phy: 00:15 Transfer Progress Notes Transfer accepted by Dr. Santiago, hospitalist at [facility]. Transfer Time: 02:15 Transfer Facility: [facility] Method of Transfer: EMS Departure-Patient Inst. Referrals: [facility] (PCP) Primary Care Physician NICK LOUIS (Family) Primary Care Physician BERRY PALMA MD August 06, 2021 00:06
[2021-08-06 01:07] VITALS: BP 215/110
== END ==
LOC: EDUNIT# 21:38 → ER 21:39
DX: I16.0 Hypertensive urgency (principal); I12.0 Hypertensive chronic kidney disease with stage 5 chronic kidney disease or end stage renal disease; N18.6 End stage renal disease; F41.9 Anxiety disorder, unspecified; F17.210 Nicotine dependence, cigarettes, uncomplicated; Z99.81 Dependence on supplemental oxygen; Z99.2 Dependence on renal dialysis
CPT/HCPCS: 36415; 71045; 80053; 83735; 83880; 85025; 93005

== ENCOUNTER 2021-08-24 18:11 | Emergency (ER) | payer MEDICAID ==
[~2021-08-24] VITALS: Ht 177.8 cm; Wt 49.9 kg
[~2021-08-24 18:11] MED LIST changes: -LABETALOL HCL 20 MG/4 ML VIAL IV ONE; -LORazepam INJ 2 MG/ML (ATIVAN) VIAL IVP ONE; -NITROGLYCERIN 2% OINT 1 GM UNIT DOSE PACKET TOP ONE; -hydrALAZINE (APESOLINE) 20 MG/ML VIAL IV ONE; -morphine INJ 10 MG/ML 1ML (SYR OR VIAL) IVP STA
--- NOTE | 2021-08-24 18:25 | ED General ---
General Chief Complaint: General Problems/Pain Stated Complaint: HIGH BP Source of Information: Patient (PT IS SOMEWHAT LIMITED HISTORIAN BUT IS NOT CONFUSED), EMS History of Present Illness Date Seen by Provider: August 24, 2021 Time Seen by Provider: 18:14 Initial Comments PT ARRIVES VIA EMS FROM HOME GIRLFRIEND CALLED EMS FOR PT REPORTEDLY HAVING "DELUSIONS"--SHE REPORTED TO EMS THAT HE WAS "IMAGINING THINGS ON THE WALL" PT HAS NOT EXHIBITED ANY CONFUSION OR ABNORMAL BEHAVIOR OR HALLUCINATIONS FOR EMS, AND IS NOT HAVING ANY DELUSIONS OR CONFUSION ON ARRIVAL HERE BP WAS 201/106 FOR EMS. PT STATES HE HAS NOT MISSED ANY DOSES OF MEDICATIONS RECENTLY, AND NO CHANGE IN MEDICATIONS OR DOSES RECENTLY. STATES HE TOOK HIS MORNING MEDICATIONS TODAY STATES HE IS SUPPOSED TO BE TAKING A BABY ASPIRIN EVERY DAY, BUT HAS NOT BEEN TAKING IT. PT DENIES BEING ON ANY BLOOD THINNERS. PT HAS COPD, WAS NOT WEARING HIS HOME O2 AT THE SCENE, AND EMS DID NOT PLACE HIM ON O2. PT STATES HE IS SUPPOSED TO BE ON 3L/NC ALL THE TIME. O2 SAT IS 97% ON ROOM AIR ON ARRIVAL PT STATES HE IS NOT ANY MORE SHORT OF BREATH THAN NORMAL, AND COUGH IS NOT WORSE THAN NORMAL PT SMOKES 2 PPD FOR OVER 30 YEARS DENIES DRUG OR ALCOHOL USE--BUT HAS HISTORY OF VERY HEAVY DAILY ETOH USE. PT HAS ESRD ON DIALYSIS [id number]. PT MISSED DIALYSIS YESTERDAY ( FRIDAY), SO HAD DIALYSIS TODAY, BUT BEGAN TO HAVE NAUSEA AND VOMITED X 1 DURING DIALYSIS, SO IT WAS STOPPED--ONLY GOT ABOUT 1 HOUR OF DIALYSIS TODAY. IS SCHEDULED TO HAVE IT AGAIN TOMORROW PT IS NOT NAUSEATED NOW. DENIES ABDOMINAL PAIN NO DIARRHEA. PT STATES THE NURSE AT DIALYSIS TOLD HIM HE "FELT A LITTLE WARM" BUT PT STATES HE DOES NOT KNOW IF HE ACTUALLY HAD FEVER OR NOT STATES HE HAS HAD A LITTLE BIT OF BLURRY VISION FOR THE LAST FEW MONTHS, BUT HAS NOT ATTEMPTED TO SEE AN EYE DR AT ANY TIME NO DIZZINESS HAS HAD MILD HEADACHES OFF AND ON, BUT DENIES HEADACHE TODAY. NO PARESTHESIAS OR MOTOR DEFICITS NO CHEST PAIN NO PALPITATIONS NO SYNCOPE DENIES SWELLING PT HAD WI WITH STENT X 1 TO LAD 11/2015 SINCE THEN PT HAS BEEN LIVING IN [place] UNTIL MAY OF THIS YEAR STATES HE WENT ON DIALSIS IN FEBRUARY OF 2021, AND HAD A 2 VESSEL CABG THE END OF FEBRUARY 2021 WHILE IN [place]. HAS NOT ESTABLISHED WITH A BELT PICKER HERE. PT HAS HAD COVID VACCINE X 2, NO BOOSTER. NO FLU VACCINE PCP: DAVID ADLER--HAS NOT BEEN THERE YET BENEFITS COORDINATOR: "DR. Cruz" STATES HE JUST MOVED HERE FROM [place] IN MAY. PT HAS HAD 8 VISITS HERE SINCE 05/08/21--ALL RELATED TO ESRD / RESPIRATORY ISSUES / COPD AND HTN Allergies and Home Medications Allergies Coded Allergies: No Known Drug Allergies (Unverified , 04/14/11) Patient Home Medication List Aspirin (Aspirin EC) 81 Mg Tablet.dr, 81 MG PO DAILY, (Reported) Entered as Reported by: JALEESA GODWIN on 12/02/16 1353 Hydralazine HCl (Hydralazine HCl) 50 Mg Tablet, (Reported) Entered as Reported by: KERI SAUCEDO on 07/21/21357 Lisinopril (Lisinopril) 5 Mg Tablet, 5 MG PO DAILY, (Reported) Entered as Reported by: JALEESA GODWIN on 12/02/16 1353 Nifedipine (Nifedipine ER) 60 Mg Tab.er.24, (Reported) Entered as Reported by: KERI SAUCEDO on 07/21/21357 Pantoprazole Sodium (Pantoprazole Sodium) 40 Mg Tablet., (Reported) Entered as Reported by: KERI SAUCEDO on 07/21/21357 Sertraline HCl (Sertraline HCl) 50 Mg Tablet, (Reported) Entered as Reported by: KERI SAUCEDO on 07/21/21357 Torsemide (Torsemide) 20 Mg Tablet, (Reported) Entered as Reported by: KERI SAUCEDO on 07/21/21357 Review of Systems Review of Systems Constitutional: see HPI EENTM: see HPI Respiratory: see HPI Cardiovascular: no symptoms reported; No chest pain, No edema, No palpitations, No syncope Gastrointestinal: see HPI; No abdominal pain Genitourinary: see HPI, other (MAKES VERY LITTLE URINE) Musculoskeletal: no symptoms reported Skin: no symptoms reported Psychiatric/Neurological: See HPI Hematologic/Lymphatic: No Symptoms Reported Immunological/Allergic: no symptoms reported Past Uihuspm-Fkdhnx-Tsgozc Hx Patient Social History Tobacco Use?: Yes Tobacco type used: Cigarettes Smoking Status: Current Everyday Smoker Substance use?: No Alcohol Use?: Yes Immunizations Up To Date PED Vaccines UTD: Yes First/Initial COVID19 Vaccinat: August 2020 Second COVID19 Vaccination [place]: September 2020 Seasonal Allergies Seasonal Allergies: No Past Medical History Surgery/Hospitalization HX: cabg, cardiac stent, right murhuker, left fistula, htn, high cholesterol, chf, esrd, hd ,,sa Surgeries: Yes Cardiac, CABG, Coronary Stent, Dialysis, Vascular Surgery, Vasectomy Respiratory: Yes (O2 DEPENDENT) COPD Cardiac: Yes (STEMI 11/2015 W/ STENT X 1 TO LAD; 2 VESSEL CABG 02/2021; CHF/FLUID OVERLOA) Coronary Artery Disease, Heart Attack, High Cholesterol, Hypertension Neurological: No Stroke Genitourinary: Yes Prostate Problems, Renal Failure, Dialysis Gastrointestinal: No Musculoskeletal: No Endocrine: No HEENT: No Cancer: No Psychosocial: Yes Anxiety, Depression Integumentary: No Blood Disorders: Yes (CHRONIC ANEMIA) Adverse Reaction/Blood Tranf: No Family Medical History Heart Disease SOCIAL HISTORY: -SMOKES 2 PPD FOR OVER 30 YEARS -ETOH-HISTORY OF VERY HEAVY, DAILY USE--PT STATES HE NO LONGER DRINKS. -DRUGS-DENIES USE PAST SURGICAL HISTORY: -CARDIAC CATH 11/2015--STENT X 1 TO LAD -2 VESSEL CABG-PT STATES WAS DONE IN [place] IN FEBRUARY 2021 -LEFT ARM AV DIALYSIS GRAFT -RIGHT CHEST DIALYSIS CENTRAL LINE Physical Exam Vital Signs Vital Signs - First Documented 08/24/21 08/24/21 18:14 18:30 Temp 37.4 Pulse 87 Resp 18 B/P (MAP) 190/113 (138) Pulse Ox 97 O2 Delivery Nasal Cannula O2 Flow Rate 2.50 Capillary Refill : Height, Weight, BMI Height: 5'10.00" Weight: 124lbs. 5.0oz. [id number]; BMI Method:Stated General Appearance: Anxious, Cachetic, Other (MILDLY DYSPNEIC, BUT ABLE TO TALK IN FULL SENTENCES; UNKEMPT. ) HEENT: PERRL/EOMI Neck: Normal Inspection, JVD Respiratory: Accessory Muscle Use, Rales (BILATERALLY), Other (MILDLY DYSPNEIC) Cardiovascular: Regular Rate, Rhythm, No Edema, Systolic Murmur (1-2/6 MURMUR), JVD, Other (RIGHT UPPER CHEST WITH CENTRAL DIALYSIS LINE. ) Gastrointestinal: Non Tender, Soft Extremity: Normal Capillary Refill, No Pedal Edema, Other (LEFT ARM DIALYSIS A- V FISTULA/GRAFT) Neurologic/Psychiatric: Alert, Oriented x3 (BUT SOMEWHAT LIMITED MEMORY), No Motor/Sensory Deficits, tube splicer II-XII Norm as Tested, Other (MILDLY ANXIOUS, BUT IS NOT CONFUSED AND NO EVIDENCE OF DELUSIONS OR HALLUCINATIONS) Skin: Normal Color, Warm/Dry Focused Exam Sepsis Stage: Ruled Out Reason for ruling out sepsis: DOES NOT MEET CRITERIA Lactate Level 08/24/21 18:26: Lactic Acid Level 1.53 Time of Focused Exam: 20:00 Respiratory: Accessory Muscle Use (NO SIGNS OF SEPSIS, PT ALREADY FLUID OVERLOADED DUE TO ESRD. ), Rales, Other (UNCHANGED FROM ARRIVAL) Cardiovascular: Regular Rate, Rhythm, Other (UNCHANGED FROM PREVIOUS) Skin: normal color Lactic Acid Level Laboratory Tests Test 08/24/21 18:26 Lactic Acid Level 1.53 MMOL/L (0.50-2.00) Within 3hrs of presentation: Blood cultures prior to ABX's, Focus exam, Lactate level, Other (NO TREATMENT NO SIGNS OF INFECTION AND PT IS ALREADY FLUID OVERLOADED AND HYPERTENSIVE. ) Progress/Results/Core Measures Suspected Sepsis SIRS Temperature: Pulse: Respiratory Rate: Laboratory Tests 08/24/21 18:26: White Blood Count 7.9 Blood Pressure / Mean: 08/24/21 18:26: Lactic Acid Level 1.53 Laboratory Tests 08/24/21 18:26: Creatinine 8.28H, INR Comment 0.9, Platelet Count 275, Total Bilirubin 0.5 Results/Orders Lab Results Laboratory Tests Test 08/24/21 18:26 08/24/21 18:40 08/24/21 19:00 Range/Units White Blood Count 7.9 4.3-11.0 10^3/uL Red Blood Count 3.82 L 4.30-5.52 10^6/uL Hemoglobin 10.8 L 13.3-17.7 g/dL Hematocrit 33 L 40-54 % Mean Corpuscular Volume 85 80-99 fL Mean Corpuscular Hemoglobin 28 25-34 pg Mean Corpuscular Hemoglobin Concent 33 32-36 g/dL Red Cell Distribution Width 16.7 H 10.0-14.5 % Platelet Count 275 130-400 10^3/uL Mean Platelet Volume 9.3 9.0-12.2 fL Immature Granulocyte % (Auto) 0 % Neutrophils (%) (Auto) 72 42-75 % Lymphocytes (%) (Auto) 15 12-44 % Monocytes (%) (Auto) 9 0-12 % Eosinophils (%) (Auto) 3 0-10 % Basophils (%) (Auto) 1 0-10 % Neutrophils # (Auto) 5.7 1.8-7.8 10^3/uL Lymphocytes # (Auto) 1.2 1.0-4.0 10^3/uL Monocytes # (Auto) 0.7 0.0-1.0 10^3/uL Eosinophils # (Auto) 0.2 0.0-0.3 10^3/uL Basophils # (Auto) 0.1 0.0-0.1 10^3/uL Immature Granulocyte # (Auto) 0.0 0.0-0.1 10^3/uL Erythrocyte Sedimentation Rate 79 H 0-30 MM/HR Prothrombin Time 12.6 12.2-14.7 SEC INR Comment 0.9 0.8-1.4 Activated Partial Thromboplast Time 40 H 24-35 SEC Sodium Level 134 L 135-145 MMOL/L Potassium Level 4.9 3.6-5.0 MMOL/L Chloride Level 92 L 98-107 MMOL/L Carbon Dioxide Level 18 L 21-32 MMOL/L Anion Gap 24 H 5-14 MMOL/L Blood Urea Nitrogen 75 H 7-18 MG/DL Creatinine 8.28 H 0.60-1.30 MG/DL Estimat Glomerular Filtration Rate 7 BUN/Creatinine Ratio 9 Glucose Level 84 70-105 MG/DL Lactic Acid Level 1.53 0.50-2.00 MMOL/L Calcium Level 10.1 8.5-10.1 MG/DL Corrected Calcium 9.9 8.5-10.1 MG/DL Phosphorus Level 6.3 H 2.3-4.7 MG/DL Magnesium Level 2.4 1.6-2.4 MG/DL Total Bilirubin 0.5 0.1-1.0 MG/DL Aspartate Amino Transf (AST/SGOT) 18 5-34 U/L Alanine Aminotransferase (ALT/SGPT) 7 0-55 U/L Alkaline Phosphatase 119 40-136 U/L Ammonia 10 L 11-32 UMOL/L Troponin I 0.124 H <0.028 NG/ML C-Reactive Protein High Sensitivity 9.06 H 0.00-0.50 MG/DL Total Protein 8.4 H 6.4-8.2 GM/DL Albumin 4.2 3.2-4.5 GM/DL Amylase Level 90 25-125 U/L Lipase 43 8-78 U/L Procalcitonin 1.12 H <0.10 NG/ML TSH [place] Testing 2.67 0.35-4.94 UIU/ML Serum Alcohol < 10 <10 MG/DL Blood Gas Puncture Site RT RAD Blood Gas Patient Temperature 37.4 Arterial Blood pH 7.56 H 7.37-7.43 Arterial Blood Partial Pressure CO2 20 L 35-45 MMHG Arterial Blood Partial Pressure O2 95 H 79-93 MMHG Arterial Blood HCO3 18 L 23-27 MMOL/L Arterial Blood Total CO2 18.4 L 21.0-31.0 MMOL/L Arterial Blood Oxygen Saturation 98 94-100 % Arterial Blood Base Excess -4.1 L -2.5-2.5 MMOL/L Michael Test YES-POS Blood Gas Ventilator Setting NO Blood Gas Inspired Oxygen UNK Influenza Type A (RT-PCR) Not Detected Not Detecte Influenza Type B (RT-PCR) Not Detected Not Detecte SARS-CoV-2 RNA (RT-PCR) Not Detected Not Detecte Urine Opiates Screen NEGATIVE NEGATIVE Urine Oxycodone Screen NEGATIVE NEGATIVE Urine Methadone Screen NEGATIVE NEGATIVE Urine Propoxyphene Screen NEGATIVE NEGATIVE Urine Barbiturates Screen NEGATIVE NEGATIVE Ur Tricyclic Antidepressants Screen NEGATIVE NEGATIVE Urine Phencyclidine Screen NEGATIVE NEGATIVE Urine Amphetamines Screen NEGATIVE NEGATIVE Urine Methamphetamines Screen NEGATIVE NEGATIVE Urine Benzodiazepines Screen NEGATIVE NEGATIVE Urine Cocaine Screen NEGATIVE NEGATIVE Urine Cannabinoids Screen NEGATIVE NEGATIVE My Orders Orders - AGNES LIGHT DO Ed Iv/Invasive Line Start (08/24/21 18:21) Ekg Tracing (08/24/21 18:21) O2 (08/24/21 18:21) Monitor-Rhythm Ecg Trace Only (08/24/21 18:21) Ct Head Wo-R/O Stroke (08/24/21 18:21) Chest 1 View, Ap/Pa Only (08/24/21 18:21) Alcohol (08/24/21 18:21) Ammonia (08/24/21 18:21) Amylase (08/24/21 18:21) Cbc With Automated Diff (08/24/21 18:21) Comprehensive Metabolic Panel (08/24/21 18:21) Hs C Reactive Protein (08/24/21 18:21) Drug Screen Stat (Urine) (08/24/21 18:21) Lactic Acid Analyzer (08/24/21 18:21) Lipase (08/24/21 18:21) Magnesium (08/24/21 18:21) Protime With Inr (08/24/21 18:21) Partial Thromboplastin Time (08/24/21 18:21) Thyroid Analyzer (08/24/21 18:21) Ua Culture If Indicated (08/24/21 18:21) Phosphorus (08/24/21 18:21) Erythrocyte Sedimentation Rate (08/24/21 18:21) Troponin I Assumption (08/24/21 18:21) Procalcitonin (Pct) (08/24/21 18:21) Covid 19 Inhouse Test (08/24/21 18:21) Urine Culture (08/24/21 18:21) Ed Iv/Invasive Line Start (08/24/21 18:21) Ed Iv/Invasive Line Start (08/24/21 18:21) Vital Signs Adult Sepsis Patie Q15M (08/24/21 18:21) O2 (08/24/21 18:21) Remove Rings In Anticipation O (08/24/21 18:21) Influenza A And B By Pcr (08/24/21 18:21) Isolation Central Supply Req (08/24/21 18:21) Arterial Blood Gas (08/24/21 18:32) Arterial Blood Gas (08/24/21 18:41) Hydralazine Injection (Apresoline Inject (08/24/21 20:00) Hydralazine Injection (Apresoline Inject (08/24/21 20:30) Nifedipine Xl Tablet (Procardia Xl Tab (08/24/21 20:45) Medications Given in ED Current Medications Medications Dose Ordered Sig/Poly Route Start Time Stop Time Status Last Admin Dose Admin Hydralazine HCl 10 mg ONCE ONCE IV 08/24/21 20:00 08/24/21 20:01 DC 08/24/21 20:11 10 MG Hydralazine HCl 10 mg ONCE ONCE IV 08/24/21 20:30 08/24/21 20:31 DC 08/24/21 20:52 10 MG Nifedipine 60 mg ONCE ONCE PO 08/24/21 20:45 08/24/21 20:46 DC 08/24/21 20:51 60 MG Vital Signs/I&O 08/24/21 08/24/21 18:14 18:30 Temp 37.4 Pulse 87 Resp 18 B/P (MAP) 190/113 (138) Pulse Ox 97 99 O2 Delivery Nasal Cannula O2 Flow Rate 2.50 Capillary Refill : Progress Note : Progress Note NO DETERIORATION IN PT'S CONDITION DURING ER STAY PT HAD NO CONFUSION, DELUSIONS OR HALLUCINATIONS OR ANY NEUROLOGICAL SYMPTOMS DURING ER STAY. NO CHEST PAIN OR ARRHYTHMIAS DURING ER STAY NO HYPOXIA OR WORSENING OF RESPIRATORY SYMPTOMS DURING ER STAY NO COUGH AT ANY TIME NO NAUSEA/VOMITING GIVEN HYDRALAZINE IV AND REGULAR DOSE OF NIFEDIPINE PO FOR ELEVATED BLOOD PRESSURE GIRLFRIEND DID NOT COME TO ER OR CALL ER OR PT AT ANY TIME DURING ER STAY ECG Initial ECG Impression Date: August 24, 2021 Initial ECG Impression Time: 18:32 Initial ECG Rate: 88 Initial ECG Rhythm: Normal Sinus Initial ECG Impression: Nonspecific Changes Diagnostic Imaging Comments CT HEAD--NO ACUTE PROCESS, PER RADIOLOGIST VIA PHONE AT 1958 FINDINGS: The ventricles and sulci are normal. No abnormal attenuation of brain parenchyma is present. No acute intracranial hemorrhage or abnormal extra-axial fluid collections are present. Calcification of the intracranial ICAs. No hyperdense vessel. The calvarium is intact. The mastoid air cells are clear. The visualized paranasal sinuses are clear. The orbits are normal. IMPRESSION: No acute intracranial abnormality. CXR--PER RADIOLOGIST REPORT AT 2018 FINDINGS: There is stable mild cardiomegaly. There is diffuse interstitial edema. Overall aeration appears slightly improved compared to the prior exam. There is no pleural effusion or pneumothorax. The right dual-lumen catheter tip projects over the right atrium. Sternotomy wires are noted. IMPRESSION: Cardiomegaly with diffuse interstitial edema, appears mildly improved compared to 08/05/2021. Reviewed: Reviewed by Me, Discussed w/Radiologist Departure Communication (Admissions) 2004--CALLED [facility]. THEY WILL CALL BACK 2021--SPOKE WITH DR. ROBLES, HOSPITALIST, ACCEPTS PT FOR ADMIT/TRANSFER. NO ADDITIONAL RECOMMENDATIONS AT THIS TIME. Impression Primary Impression: Hypertensive urgency Additional Impressions: COPD O2 DEPENDENT CHF/FLUID OVERLOAD Elevated troponin ESRD on dialysis Disposition: XFER SHT-TRM HOSP Condition: Stable Transfer Transfer Reason: Exceeds level of care Transfer Facility: [facility] Method of Transfer: EMS Departure-Patient Inst. Referrals: [facility]/MARCELLE (PCP) Primary Care Physician NICK TIRADO (Family) Primary Care Physician AGNES LIGHT DO August 24, 2021 18:25
[2021-08-24 18:38] LABS: BASOPHILS # (AUTO) 0.1 10^3/uL (0.0-0.1); BASOPHILS % (AUTO) 1 % (0-10); EOSINOPHILS # (AUTO) 0.2 10^3/uL (0.0-0.3); EOSINOPHILS % (AUTO) 3 % (0-10); HEMATOCRIT 33 % (40-54); HEMOGLOBIN 10.8 g/dL (13.3-17.7); LYMPHOCYTES # (AUTO) 1.2 10^3/uL (1.0-4.0); LYMPHOCYTES % (AUTO) 15 % (12-44); MEAN CORPUSCULAR HEMOGLOBIN 28 pg (25-34); MEAN CORPUSCULAR HGB CONC 33 g/dL (32-36); MEAN CORPUSCULAR VOLUME 85 fL (80-99); MEAN PLATELET VOLUME 9.3 fL (9.0-12.2); MONOCYTES # (AUTO) 0.7 10^3/uL (0.0-1.0); MONOCYTES % (AUTO) 9 % (0-12); NEUTROPHILS # (AUTO) 5.7 10^3/uL (1.8-7.8); NEUTROPHILS % (AUTO) 72 % (42-75); PLATELET COUNT 275 10^3/uL (130-400); WHITE BLOOD COUNT 7.9 10^3/uL (4.3-11.0)
[2021-08-24 18:48] LABS: ALBUMIN 4.2 GM/DL (3.2-4.5); CHLORIDE 92 MMOL/L (98-107); POTASSIUM 4.9 MMOL/L (3.6-5.0); SODIUM 134 MMOL/L (135-145)
[2021-08-24 18:50] LABS: AMYLASE 90 U/L (25-125); CALCIUM 10.1 MG/DL (8.5-10.1)
[2021-08-24 18:51] LABS: AMMONIA 10 UMOL/L (11-32); GLUCOSE 84 MG/DL (70-105); TOTAL PROTEIN 8.4 GM/DL (6.4-8.2)
[2021-08-24 18:52] LABS: BILIRUBIN,TOTAL 0.5 MG/DL (0.1-1.0); CARBON DIOXIDE 18 MMOL/L (21-32)
[2021-08-24 18:53] LABS: ABG BASE EXCESS -4.1 MMOL/L (-2.5-2.5); ABG OXYGEN SATURATION 98 % (94-100); ABG PCO2 20 MMHG (35-45); ABG PH 7.56 (7.37-7.43); ABG PO2 95 MMHG (79-93); ABG TCO2 18.4 MMOL/L (21.0-31.0)
[2021-08-24 18:54] LABS: ALKALINE PHOSPHATASE 119 U/L (40-136); PHOSPHORUS 6.3 MG/DL (2.3-4.7)
[2021-08-24 18:54] LABS: ALLENS TEST YES-POS; PATIENT TEMP 37.4; VENTILATOR NO
[2021-08-24 18:55] LABS: CREATININE SERUM 8.28 MG/DL (0.60-1.30); GFR ESTIMATED 7
[2021-08-24 18:56] LABS: BUN/CREATININE RATIO 9; INR 0.9 (0.8-1.4); PROTHROMBIN TIME PATIENT 12.6 SEC (12.2-14.7)
[2021-08-24 18:57] LABS: MAGNESIUM 2.4 MG/DL (1.6-2.4)
[2021-08-24 18:58] LABS: ALANINE AMINOTRANSFERASE 7 U/L (0-55)
[2021-08-24 18:59] LABS: LIPASE 43 U/L (8-78)
[2021-08-24 19:01] LABS: ERYTHROCYTE SEDIMENTATION RATE 79 MM/HR (0-30)
[2021-08-24 19:19] LABS: TSH (THYROID ANALYZER) 2.67 UIU/ML (0.35-4.94)
[2021-08-24 19:30] LABS: AMPHETAMINE SCREEN, URINE NEGATIVE (NEGATIVE); BARBITURATE SCREEN URINE NEGATIVE (NEGATIVE); BENZODIAZEPINES SCREEN URINE NEGATIVE (NEGATIVE); CANNABINOID SCREEN, URINE NEGATIVE (NEGATIVE); COCAINE SCREEN URINE NEGATIVE (NEGATIVE); METHADONE STAT NEGATIVE (NEGATIVE); OPIATE SCREEN URINE NEGATIVE (NEGATIVE); OXYCODONE STAT NEGATIVE (NEGATIVE); PROPOXYPHENE STAT NEGATIVE (NEGATIVE); TRICYCLIC ANTIDEPRESSANTS SCRE NEGATIVE (NEGATIVE)
[2021-08-24] MEDS ORDERED: hydrALAZINE (APESOLINE) 20 MG/ML VIAL IV ONE ×2 (20:00→20:30)
--- NOTE | 2021-08-24 20:02 | Diagnostic Imaging Report ---
EXAMINATION: CT head without contrast. TECHNIQUE: Multiple contiguous axial images were obtained through the brain without the use of intravenous contrast. All CT scans use one or more of the following dose optimizing techniques: automated exposure control, MA and/or KvP adjustment based on patient size and exam type or iterative reconstruction. HISTORY: High blood pressure, altered mental status. COMPARISON: None available. FINDINGS: The ventricles and sulci are normal. No abnormal attenuation of brain parenchyma is present. No acute intracranial hemorrhage or abnormal extra-axial fluid collections are present. Calcification of the intracranial ICAs. No hyperdense vessel. The calvarium is intact. The mastoid air cells are clear. The visualized paranasal sinuses are clear. The orbits are normal. IMPRESSION: No acute intracranial abnormality. Results communicated to Dr. Evan Delgado at 7:54 PM on 08/24/2021. Dictated by: Dictated on workstation # [id number]
--- NOTE | 2021-08-24 20:03 | Diagnostic Imaging Report ---
HISTORY: Dyspnea, end-stage renal disease, on dialysis. COMPARISON: 08/05/2021. TECHNIQUE: Frontal view of the chest. FINDINGS: There is stable mild cardiomegaly. There is diffuse interstitial edema. Overall aeration appears slightly improved compared to the prior exam. There is no pleural effusion or pneumothorax. The right dual-lumen catheter tip projects over the right atrium. Sternotomy wires are noted. IMPRESSION: Cardiomegaly with diffuse interstitial edema, appears mildly improved compared to 08/05/2021. Dictated by: Dictated on workstation # [id number]
[2021-08-24] MEDS ORDERED: NIFEdipine ER 60 MG (PROCARDIA XL) TAB PO ONE (20:45)
[2021-08-24] MEDS ORDERED: LABETALOL HCL 20 MG/4 ML VIAL IV ONE (21:45)
[2021-08-24 21:55] VITALS: BP 203/113
== END 2021-08-24 22:00 | disposition short-term general hospital (02) ==
LOC: EDUNIT# 18:11 → ER 18:12
DX: I16.0 Hypertensive urgency (principal); I13.2 Hypertensive heart and chronic kidney disease with heart failure and with stage 5 chronic kidney disease, or end stage renal disease; I50.9 Heart failure, unspecified; N18.6 End stage renal disease; D63.1 Anemia in chronic kidney disease; R77.8 Other specified abnormalities of plasma proteins; J44.9 Chronic obstructive pulmonary disease, unspecified; Z87.891 Personal history of nicotine dependence; Z99.2 Dependence on renal dialysis; Z95.1 Presence of aortocoronary bypass graft; Z99.81 Dependence on supplemental oxygen; Z20.822 Contact with and (suspected) exposure to COVID-19
CPT/HCPCS: 36415; 70450; 71045; 80053; 80306; 80320; 82140; 82150; 82805; 83605; 83690; 83735; 84100; 84145; 84443; 84484; 85025; 85610; 85652; 85730; 86141; 87636; 93005; 93041; 99291

== ENCOUNTER → 2021-09-17 | Outpatient (CLI) | payer MEDICAID | LOC: LAB 11:50 | PROVIDERS: ATTEND Internal Medicine Critical Care Medicine | DX: J84.9 Interstitial pulmonary disease, unspecified (principal); M60.9 Myositis, unspecified; I27.23 Pulmonary hypertension due to lung diseases and hypoxia | CPT/HCPCS: 36415; 82085; 82164; 82550; 83516; 83605; 83880; 85379; 85652; 86021; 86038; 86039; 86141; 86160; 86200; 86225; 86235; 86431 ==

== ENCOUNTER 2021-09-18 02:02 | Emergency (ER) | payer MEDICAID ==
[2021-09-18 02:41] LABS: BASOPHILS # (AUTO) 0.1 10^3/uL (0.0-0.1); BASOPHILS % (AUTO) 1 % (0-10); EOSINOPHILS # (AUTO) 0.5 10^3/uL (0.0-0.3); EOSINOPHILS % (AUTO) 6 % (0-10); HEMATOCRIT 27 % (40-54); HEMOGLOBIN 8.6 g/dL (13.3-17.7); LYMPHOCYTES % (AUTO) 12 % (12-44); MEAN CORPUSCULAR HEMOGLOBIN 28 pg (25-34); MEAN CORPUSCULAR HGB CONC 33 g/dL (32-36); MEAN CORPUSCULAR VOLUME 87 fL (80-99); MEAN PLATELET VOLUME 9.2 fL (9.0-12.2); MONOCYTES # (AUTO) 0.4 10^3/uL (0.0-1.0); MONOCYTES % (AUTO) 5 % (0-12); NEUTROPHILS # (AUTO) 6.1 10^3/uL (1.8-7.8); NEUTROPHILS % (AUTO) 76 % (42-75); PLATELET COUNT 260 10^3/uL (130-400); WHITE BLOOD COUNT 8.1 10^3/uL (4.3-11.0)
[2021-09-18 02:45] LABS: ALBUMIN 3.5 GM/DL (3.2-4.5); POTASSIUM 5.1 MMOL/L (3.6-5.0)
[2021-09-18 02:46] LABS: CALCIUM 9.1 MG/DL (8.5-10.1); INR 0.9 (0.8-1.4); PROTHROMBIN TIME PATIENT 12.8 SEC (12.2-14.7)
[2021-09-18 02:48] LABS: TOTAL PROTEIN 6.9 GM/DL (6.4-8.2)
[2021-09-18 02:49] LABS: BILIRUBIN,TOTAL 0.4 MG/DL (0.1-1.0)
[2021-09-18 02:51] LABS: CREATININE SERUM 7.25 MG/DL (0.60-1.30)
--- NOTE | 2021-09-18 02:51 | ED General ---
General Chief Complaint: Chest Pain Stated Complaint: ANXIETY,CP,BACK PAIN Source of Information: Patient, EMS Exam Limitations: No Limitations History of Present Illness Date Seen by Provider: Sep 18, 2021 Time Seen by Provider: 02:01 Initial Comments 61-year-old male with past medical history of uncontrolled hypertension, ESRD on HD (,,) coming in via EMS due to shortness of breath. He used to be on roughly 5 L oxygen at all times, had a follow-up appointment with the protection engineer within the past week, was taken off oxygen saying he does not have any type of COPD or lung disease. He has been doing well without oxygen. Not around midnight he started having right flank pain which was new for him, sharp, constant, severe, nothing seem to make it better or worse. He has never had pain like that before. When that occurred he started feeling more short of breath. Denies any chest pain, abdominal pain, nausea, vomiting, diarrhea, weakness, numbness, any other concerns. Did have full dialysis on Friday in which he says they actually took too much fluid. Is supposed to get dialysis again this morning. Allergies and Home Medications Allergies Coded Allergies: No Known Drug Allergies (Unverified , 04/14/11) Patient Home Medication List Home Medication List Reviewed: Yes Aspirin (Aspirin EC) 81 Mg Tablet.dr, 81 MG PO DAILY, (Reported) Entered as Reported by: JALEESA GODWIN on 12/02/16 1353 Hydralazine HCl (Hydralazine HCl) 50 Mg Tablet, (Reported) Entered as Reported by: KERI SAUCEDO on 07/21/21357 Lisinopril (Lisinopril) 5 Mg Tablet, 5 MG PO DAILY, (Reported) Entered as Reported by: JALEESA GODWIN on 12/02/16 1353 Nifedipine (Nifedipine ER) 60 Mg Tab.er.24, (Reported) Entered as Reported by: KERI SAUCEDO on 07/21/21357 Pantoprazole Sodium (Pantoprazole Sodium) 40 Mg Tablet., (Reported) Entered as Reported by: KERI SAUCEDO on 07/21/21357 Sertraline HCl (Sertraline HCl) 50 Mg Tablet, (Reported) Entered as Reported by: KERI SAUCEDO on 07/21/21357 Torsemide (Torsemide) 20 Mg Tablet, (Reported) Entered as Reported by: EKRI SAUCEDO on 07/21/21 0358 Review of Systems Review of Systems Constitutional: No chills, No fever EENTM: No blurred vision Respiratory: short of breath Cardiovascular: no symptoms reported Gastrointestinal: no symptoms reported Genitourinary: other (flank pain) Musculoskeletal: no symptoms reported Skin: no symptoms reported Psychiatric/Neurological: No Symptoms Reported Hematologic/Lymphatic: No Symptoms Reported Immunological/Allergic: no symptoms reported All Other Systems Reviewed Negative Unless Noted: Yes Past Oxkydjj-Eslwyk-Hatdio Hx Patient Social History Tobacco Use?: Yes Immunizations Up To Date PED Vaccines UTD: Yes First/Initial COVID19 Vaccinat: August 2020 Second COVID19 Vaccination [place]: September 2020 Seasonal Allergies Seasonal Allergies: No Past Medical History Surgery/Hospitalization HX: cabg, cardiac stent, right murhuker, left fistula, htn, high cholesterol, chf, esrd, hd ,,sa Surgeries: Yes Cardiac, CABG, Coronary Stent, Dialysis, Vascular Surgery, Vasectomy Respiratory: Yes (O2 DEPENDENT) COPD Cardiac: Yes (STEMI 11/2015 W/ STENT X 1 TO LAD; 2 VESSEL CABG 02/2021; CHF/FLUID OVERLOA) Coronary Artery Disease, Heart Attack, High Cholesterol, Hypertension Neurological: No Stroke Genitourinary: Yes Prostate Problems, Renal Failure, Dialysis Gastrointestinal: No Musculoskeletal: No Endocrine: No HEENT: No Cancer: No Psychosocial: Yes Anxiety, Depression Integumentary: No Blood Disorders: Yes (CHRONIC ANEMIA) Adverse Reaction/Blood Tranf: No Family Medical History Heart Disease SOCIAL HISTORY: -SMOKES 2 PPD FOR OVER 30 YEARS -ETOH-HISTORY OF VERY HEAVY, DAILY USE--PT STATES HE NO LONGER DRINKS. -DRUGS-DENIES USE PAST SURGICAL HISTORY: -CARDIAC CATH 11/2015--STENT X 1 TO LAD -2 VESSEL CABG-PT STATES WAS DONE IN [place] IN FEBRUARY 2021 -LEFT ARM AV DIALYSIS GRAFT -RIGHT CHEST DIALYSIS CENTRAL LINE Physical Exam Vital Signs Vital Signs - First Documented Capillary Refill : Height, Weight, BMI Height: 5'10.00" Weight: 124lbs. 5.0oz. 56.364301em; 15.00 BMI Method:Stated General Appearance: No Apparent Distress, WD/WN Eyes: Bilateral Eye Normal Inspection HEENT: PERRL/EOMI, Normal ENT Inspection, Pharynx Normal Neck: Full Range of Motion, Normal Inspection, Non Tender, Supple Respiratory: Chest Non Tender, Lungs Clear, Normal Breath Sounds, No Accessory Muscle Use, No Respiratory Distress Cardiovascular: Regular Rate, Rhythm, No Edema, Normal Peripheral Pulses Gastrointestinal: Normal Bowel Sounds, Non Tender, Soft; No Guarding Back: Normal Inspection, No Vertebral Tenderness, CVA Tenderness (R) Extremity: Normal Capillary Refill, Normal Inspection, Normal Range of Motion, Non Tender, No Calf Tenderness, No Pedal Edema, Other (Fistula on the left upper arm with good thrill) Neurologic/Psychiatric: Alert, No Motor/Sensory Deficits, Normal Mood/Affect Skin: Normal Color, Warm/Dry Lymphatic: No Adenopathy Progress/Results/Core Measures Suspected Sepsis SIRS Temperature: Pulse: Respiratory Rate: Laboratory Tests 09/18/21 02:28: White Blood Count 8.1 Blood Pressure / Mean: Laboratory Tests 09/18/21 02:28: Creatinine 7.25H, INR Comment 0.9, Platelet Count 260, Total Bilirubin 0.4 Results/Orders Lab Results Laboratory Tests Test 09/18/21 02:28 Range/Units White Blood Count 8.1 4.3-11.0 10^3/uL Red Blood Count 3.04 L 4.30-5.52 10^6/uL Hemoglobin 8.6 L 13.3-17.7 g/dL Hematocrit 27 L 40-54 % Mean Corpuscular Volume 87 80-99 fL Mean Corpuscular Hemoglobin 28 25-34 pg Mean Corpuscular Hemoglobin Concent 33 32-36 g/dL Red Cell Distribution Width 17.5 H 10.0-14.5 % Platelet Count 260 130-400 10^3/uL Mean Platelet Volume 9.2 9.0-12.2 fL Immature Granulocyte % (Auto) 1 % Neutrophils (%) (Auto) 76 H 42-75 % Lymphocytes (%) (Auto) 12 12-44 % Monocytes (%) (Auto) 5 0-12 % Eosinophils (%) (Auto) 6 0-10 % Basophils (%) (Auto) 1 0-10 % Neutrophils # (Auto) 6.1 1.8-7.8 10^3/uL Lymphocytes # (Auto) 1.0 1.0-4.0 10^3/uL Monocytes # (Auto) 0.4 0.0-1.0 10^3/uL Eosinophils # (Auto) 0.5 H 0.0-0.3 10^3/uL Basophils # (Auto) 0.1 0.0-0.1 10^3/uL Immature Granulocyte # (Auto) 0.1 0.0-0.1 10^3/uL Prothrombin Time 12.8 12.2-14.7 SEC INR Comment 0.9 0.8-1.4 Activated Partial Thromboplast Time 39 H 24-35 SEC Sodium Level 133 L 135-145 MMOL/L Potassium Level 5.1 H 3.6-5.0 MMOL/L Chloride Level 90 L 98-107 MMOL/L Carbon Dioxide Level 22 21-32 MMOL/L Anion Gap 21 H 5-14 MMOL/L Blood Urea Nitrogen 71 H 7-18 MG/DL Creatinine 7.25 H 0.60-1.30 MG/DL Estimat Glomerular Filtration Rate 8 BUN/Creatinine Ratio 10 Glucose Level 89 70-105 MG/DL Calcium Level 9.1 8.5-10.1 MG/DL Corrected Calcium 9.5 8.5-10.1 MG/DL Magnesium Level 2.3 1.6-2.4 MG/DL Total Bilirubin 0.4 0.1-1.0 MG/DL Aspartate Amino Transf (AST/SGOT) 14 5-34 U/L Alanine Aminotransferase (ALT/SGPT) 8 0-55 U/L Alkaline Phosphatase 103 40-136 U/L B-Type Natriuretic Peptide 3430.4 H <100.0 PG/ML Total Protein 6.9 6.4-8.2 GM/DL Albumin 3.5 3.2-4.5 GM/DL Lipase 54 8-78 U/L My Orders Orders - ADONAY GODOY MD Ekg Tracing (09/18/21 02:06) Cbc With Automated Diff (09/18/21 02:09) Magnesium (09/18/21 02:09) Chest 1 View, Ap/Pa Only (09/18/21 02:09) Comprehensive Metabolic Panel (09/18/21 02:09) Protime With Inr (09/18/21 02:09) Partial Thromboplastin Time (09/18/21 02:09) O2 (09/18/21 02:09) Monitor-Rhythm Ecg Trace Only (09/18/21 02:09) Ed Iv/Invasive Line Start (09/18/21 02:09) Lipase (09/18/21 02:09) Bnp [place] (09/18/21 02:09) Ct Abd/Pelvis Wo(Kidney Stone) (09/18/21 02:15) Hydralazine Injection (Apresoline Inject (09/18/21 03:00) Nitroglycerin Ointment (Nitrobid Ointme (09/18/21 03:00) Acetaminophen Tablet (Tylenol Tablet) (09/18/21 03:00) Medications Given in ED Current Medications Medications Dose Ordered Sig/Poly Route Start Time Stop Time Status Last Admin Dose Admin Acetaminophen 1,000 mg ONCE ONCE PO 09/18/21 03:00 09/18/21 03:02 DC 09/18/21 03:21 1,000 MG Hydralazine HCl 10 mg ONCE ONCE IV 09/18/21 03:00 09/18/21 03:02 DC 09/18/21 03:20 10 MG Nitroglycerin 1 inch ONCE ONCE TOP 09/18/21 03:00 09/18/21 03:02 DC 09/18/21 03:20 1 INCH Vital Signs/I&O 09/18/21 09/18/21 09/18/21 02:08 02:08 05:13 Temp 36.6 36.6 Pulse 86 85 Resp 20 18 B/P (MAP) 171/86 (114) 178/87 Pulse Ox 97 97 O2 Delivery Room Air Room Air Room Air Capillary Refill : Progress Note : Progress Note Well-appearing 61-year-old male with above history coming in due to right flank pain and shortness of breath. ABCs were intact and vitals were stable on presentation. Specifically, he is breathing comfortably, slowly, clear lungs, oxygen 97% or greater on room air. On review of multiple prior emergency department visits, he typically is requiring 5 to 6 L of oxygen and is in respiratory distress. He looks significantly better than prior visits based on what I am reading. Labs similar to his baseline, BNP on the lower end compared to prior. Chest x- ray looks better compared to prior where he had significant pulmonary edema. CT abdomen pelvis with no acute abnormalities. He was never complaining of any chest pain, EKG looks similar to prior, and overall I do not believe this is his ACS equivalent. At this point he has dialysis in roughly 2 hours which I think is what he ultimately needs. Friday morning/Friday nights are the longest he has to go between dialysis and I believe he is just slightly symptomatic from that. Blood pressure improved after medications and so did his symptoms. I believe he is stable for discharge with outpatient follow-up. He was sent home with strict return precautions ECG Initial ECG Impression Date: Sep 18, 2021 Initial ECG Impression Time: 02:30 Initial ECG Rate: 80 Initial ECG Rhythm: Normal Sinus Comment Narrow QRS, normal axis, no significant ST changes, T wave inversions in the high lateral leads, signs of LVH, looks similar to prior EKG Departure Impression Primary Impression: Dyspnea Qualified Codes: R06.02 - Shortness of breath Additional Impression: ESRD (end stage renal disease) Disposition: 01 HOME, SELF-CARE Condition: Stable Departure-Patient Inst. Decision time for Depature: 04:59 Referrals: MICHEL ROSALES MD (PCP) Primary Care Physician Patient Instructions: Shortness of Breath, Adult ED, End Stage Kidney Disease (DC) Add. Discharge Instructions: I think you are feeling short of breath just because you are due for dialysis. I recommend taking all of your regular medicines today and then following up with dialysis at your regular time. If you have any concerns call your regular doctor or come back to the ER if you are feeling severely short of breath. Work/School Note: Work Release Form Date Seen in the Emergency Department: Sep 18, 2021 Return to Work: Sep 19, 2021 Restrictions: No Restrictions ADONAY GODOY MD Sep 18, 2021 02:51
[2021-09-18 02:54] LABS: MAGNESIUM 2.3 MG/DL (1.6-2.4)
[2021-09-18] MEDS ORDERED: NITROGLYCERIN 2% OINT 1 GM UNIT DOSE PACKET TOP ONE (03:00)
[2021-09-18] MEDS ORDERED: hydrALAZINE (APESOLINE) 20 MG/ML VIAL IV ONE (03:00)
[2021-09-18] MEDS ORDERED: ACETAMINOPHEN 500 MG TAB (TYLENOL) PO ONE (03:00)
--- NOTE | 2021-09-18 04:55 | Diagnostic Imaging Report ---
PROCEDURE: CT urinary tract, rule out kidney stone. TECHNIQUE: Multiple contiguous axial images were obtained through the abdomen and pelvis without the use of intravenous contrast. Auto Exposure Controls were utilized during the CT exam to meet ALARA standards for radiation dose reduction. INDICATION: Chest pain There appears be pulmonary vascular congestion with small bilateral pleural effusions. Liver appears normal. The gallbladder appears normal. Pancreas appears normal. There is a small sliding hiatal hernia. Spleen is unremarkable. Kidneys and adrenals appear normal. There is aortic atherosclerosis. Small bowel is not dilated. Appendix is normal. There is diverticulosis of the colon without evidence of diverticulitis. There is moderate fecal stasis. There is thickening of the urinary bladder wall. The prostate is not enlarged. Patient's had bilateral mastectomies. IMPRESSION: Atherosclerosis. Uncomplicated diverticulosis of the colon. Fecal stasis. Thickened urinary bladder wall could be due to cystitis Dictated by: Dictated on workstation # [id number]
[2021-09-18 05:13] VITALS: BP 178/87
--- NOTE | 2021-09-18 06:00 | Diagnostic Imaging Report ---
EXAMINATION: Chest 1 view HISTORY: Chest pain. COMPARISON: 08/24/2021. FINDINGS: Stable cardiomegaly with post-CABG changes. There is calcified aortic atherosclerotic plaque. Prominent interstitial markings are seen throughout the lungs with hazy opacities in the mid and lower lungs. No large pleural effusion or pneumothorax. No acute osseous abnormalities. IMPRESSION: 1. Stable to slight increase in mixed opacities throughout the lungs. Findings may represent edema superimposed on chronic fibrotic changes. 2. Stable cardiomegaly. Dictated by: Dictated on workstation # [id number]
== END 2021-09-18 05:23 | disposition home or self-care (01) ==
LOC: EDUNIT# 02:02 → ER 02:06
DX: I13.2 Hypertensive heart and chronic kidney disease with heart failure and with stage 5 chronic kidney disease, or end stage renal disease (principal); N18.6 End stage renal disease; I50.9 Heart failure, unspecified; D63.1 Anemia in chronic kidney disease; R94.31 Abnormal electrocardiogram [ECG] [EKG]; J44.9 Chronic obstructive pulmonary disease, unspecified; Z99.81 Dependence on supplemental oxygen; Z99.2 Dependence on renal dialysis
CPT/HCPCS: 36415; 71045; 74176; 80053; 83690; 83735; 83880; 85025; 85610; 85730; 93005; 93041

== ENCOUNTER 2021-09-26 15:26 | Emergency (ER) | payer MEDICAID ==
[~2021-09-26] VITALS: Ht 177.8 cm; Wt 56.2 kg
[2021-09-26] MEDS ORDERED: fentaNYL INJ 100 MCG/2 ML AMP IVP ONE (16:00)
[2021-09-26] MEDS ORDERED: NS IV 500 ML 500 ML IV ONE (16:00)
--- NOTE | 2021-09-26 16:04 | ED Respiratory ---
General Chief Complaint: Respiratory Problems Stated Complaint: SOB, FALLS Source: patient Exam Limitations: no limitations (DANI ROCKWELL) History of Present Illness Date Seen by Provider: Sep 26, 2021 Time Seen by Provider: 15:46 Initial Comments Patient to the ER by private conveyance chief complaint he had a fall yesterday hit his head loss consciousness. Says he got lightheaded and passed out. Not on blood thinners. He is now having some pain in his right hip as well as his left femur. Mostly the right side which he rates as moderate. He missed his dialysis yesterday, he typically takes it Friday, , Friday. He missed his dialysis today because he could not get out of bed because of the pain. No fevers chills nausea vomiting or diarrhea. He has a history of coronary disease. He follows with Dr. Cruz, nephrology and Madhu Louis at [facility] for primary care. He is not diabetic. His significant other states he supposed to be wearing 4 L by nasal cannula oxygen at night to sleep but he does not typically wear it. (DANI ROCKWELL) Allergies and Home Medications Allergies Coded Allergies: No Known Drug Allergies (Unverified , 04/14/11) Patient Home Medication List Home Medication List Reviewed: Yes (DANI ROCKWELL) Aspirin (Aspirin EC) 81 Mg Tablet., 81 MG PO DAILY, (Reported) Entered as Reported by: JALEESA GODWIN on 12/02/16 1353 Hydralazine HCl (Hydralazine HCl) 50 Mg Tablet, (Reported) Entered as Reported by: KERI SAUCEDO on 07/21/21357 Lisinopril (Lisinopril) 5 Mg Tablet, 5 MG PO DAILY, (Reported) Entered as Reported by: JALEESA GODWIN on 12/02/16 1353 Nifedipine (Nifedipine ER) 60 Mg Tab.er.24, (Reported) Entered as Reported by: KERI SAUCEDO on 07/21/21357 Pantoprazole Sodium (Pantoprazole Sodium) 40 Mg Tablet., (Reported) Entered as Reported by: KERI SAUCEDO on 07/21/21357 Sertraline HCl (Sertraline HCl) 50 Mg Tablet, (Reported) Entered as Reported by: KERI SAUCEDO on 07/21/21357 Torsemide (Torsemide) 20 Mg Tablet, (Reported) Entered as Reported by: KERI SAUCEDO on 07/21/21 0358 Review of Systems Review of Systems Constitutional: No chills, No diaphoresis; dizziness; No fever; weakness EENTM: No ear discharge, No ear pain Respiratory: No cough; short of breath Cardiovascular: No chest pain, No edema; Hx of Intervention; No palpitations; syncope Gastrointestinal: No abdominal pain, No constipation, No diarrhea Genitourinary: No discharge, No dysuria Musculoskeletal: see HPI; No back pain; joint pain (DANI ROCKWELL) All Other Systems Reviewed Negative Unless Noted: Yes (DANI ROCKWELL) Past Xzwmxmu-Dwujgq-Smqnho Hx Patient Social History Tobacco Use?: No Use of E-Cig and/or Vaping dev: No Substance use?: No (DANI ROCKWELL) Immunizations Up To Date PED Vaccines UTD: Yes First/Initial COVID19 Vaccinat: August 2020 Second COVID19 Vaccination Alden: September 2020 (DANI ROCKWELL) Seasonal Allergies Seasonal Allergies: No (DANI ROCKWELL) Past Medical History Surgery/Hospitalization HX: cabg, cardiac stent, right murhuker, left fistula, htn, high cholesterol, chf, esrd, hd ,,sa Surgeries: Yes Cardiac, CABG, Coronary Stent, Dialysis, Vascular Surgery, Vasectomy Respiratory: Yes (O2 DEPENDENT) COPD Cardiac: Yes (STEMI 11/2015 W/ STENT X 1 TO LAD; 2 VESSEL CABG 02/2021; CHF/FLUID OVERLOA) Coronary Artery Disease, Heart Attack, High Cholesterol, Hypertension Neurological: No Stroke Genitourinary: Yes Prostate Problems, Renal Failure, Dialysis Gastrointestinal: No Musculoskeletal: No Endocrine: No HEENT: No Cancer: No Psychosocial: Yes Anxiety, Depression Integumentary: No Blood Disorders: Yes (CHRONIC ANEMIA) Adverse Reaction/Blood Tranf: No (DANI ROCKWELL) Family Medical History Heart Disease SOCIAL HISTORY: -SMOKES 2 PPD FOR OVER 30 YEARS -ETOH-HISTORY OF VERY HEAVY, DAILY USE--PT STATES HE NO LONGER DRINKS. -DRUGS-DENIES USE PAST SURGICAL HISTORY: -CARDIAC CATH 11/2015--STENT X 1 TO LAD -2 VESSEL CABG-PT STATES WAS DONE IN [place] IN FEBRUARY 2021 -LEFT ARM AV DIALYSIS GRAFT -RIGHT CHEST DIALYSIS CENTRAL LINE (DANI ROCKWELL) Physical Exam Vital Signs - First Documented 09/26/21 09/26/21 16:00 18:34 Temp 37.2 Pulse 99 Resp 24 B/P (MAP) 194/113 (140) Pulse Ox 96 O2 Delivery Room Air O2 Flow Rate 30.00 (BERRY PALMA MD) Capillary Refill : (DANI ROCKWELL) Height: 5'10.00" Weight: 124lbs. 5.0oz. [id number]; 15.00 BMI Method:Stated General Appearance: moderate distress, thin Eyes: Bilateral Eye Normal Inspection, Bilateral Eye PERRL, Bilateral Eye EOMI HEENT: PERRL/EOMI, normal ENT inspection (Negative for raccoon eyes. Atraumatic head), TMs normal (Negative for bustillo sign or hemotympanum.); No pharynx normal (Dry oral mucosa) Neck: full range of motion, supple, normal inspection Respiratory: lungs clear, normal breath sounds, respiratory distress (30 to 32 breaths/min oxygen saturation 95% on room air) Cardiovascular: normal peripheral pulses, regular rate, rhythm Gastrointestinal: normal bowel sounds, non tender, soft Extremities: normal inspection, normal capillary refill; No swelling; other (Tenderness over right greater trochanter of the femur and left mid femur anteriorly.) Neurologic/Psychiatric: alert, normal mood/affect, oriented x 3 Skin: normal color, warm/dry (DANI ROCKWELL) Focused Exam Lactate Level 09/26/21 17:45: Lactic Acid Level 4.20*H 09/26/21 19:51: Lactic Acid Level 4.04*H 09/26/21 22:15: (BERRY PALMA MD) Lactic Acid Level Laboratory Tests Test 09/26/21 16:00 09/26/21 17:45 09/26/21 19:51 09/26/21 22:15 Lactic Acid Level 4.39 MMOL/L (0.50-2.00) *H 4.20 MMOL/L (0.50-2.00) *H 4.04 MMOL/L (0.50-2.00) *H (BERRY PALMA MD) Progress/Results/Core Measures Suspected Sepsis SIRS Temperature: Pulse: Respiratory Rate: Laboratory Tests 09/26/21 16:00: White Blood Count 10.3 Blood Pressure / Mean: 09/26/21 16:00: Lactic Acid Level 4.39*H 09/26/21 17:45: Lactic Acid Level 4.20*H Laboratory Tests 09/26/21 16:00: Creatinine 11.57H, INR Comment 1.0, Platelet Count 340, Total Bilirubin 0.6 (DANI ROCKWELL) Results/Orders Lab Results Laboratory Tests Test 09/26/21 15:58 09/26/21 16:00 09/26/21 16:32 09/26/21 16:52 Range/Units Influenza Type A (RT-PCR) Not Detected Not Detecte Influenza Type B (RT-PCR) Not Detected Not Detecte SARS-CoV-2 RNA (RT-PCR) Not Detected Not Detecte White Blood Count 10.3 4.3-11.0 10^3/uL Red Blood Count 3.45 L 4.30-5.52 10^6/uL Hemoglobin 9.7 L 13.3-17.7 g/dL Hematocrit 30 L 40-54 % Mean Corpuscular Volume 88 80-99 fL Mean Corpuscular Hemoglobin 28 25-34 pg Mean Corpuscular Hemoglobin Concent 32 32-36 g/dL Red Cell Distribution Width 18.0 H 10.0-14.5 % Platelet Count 340 130-400 10^3/uL Mean Platelet Volume 9.2 9.0-12.2 fL Immature Granulocyte % (Auto) 1 % Neutrophils (%) (Auto) 85 H 42-75 % Lymphocytes (%) (Auto) 7 L 12-44 % Monocytes (%) (Auto) 7 0-12 % Eosinophils (%) (Auto) 0 0-10 % Basophils (%) (Auto) 1 0-10 % Neutrophils # (Auto) 8.8 H 1.8-7.8 10^3/uL Lymphocytes # (Auto) 0.7 L 1.0-4.0 10^3/uL Monocytes # (Auto) 0.7 0.0-1.0 10^3/uL Eosinophils # (Auto) 0.0 0.0-0.3 10^3/uL Basophils # (Auto) 0.1 0.0-0.1 10^3/uL Immature Granulocyte # (Auto) 0.1 0.0-0.1 10^3/uL Neutrophils % (Manual) 87 % Lymphocytes % (Manual) 8 % Monocytes % (Manual) 4 % Atypical Lymphocytes 1 % Poikilocytosis SLIGHT Prothrombin Time 13.9 12.2-14.7 SEC INR Comment 1.0 0.8-1.4 Activated Partial Thromboplast Time 36 H 24-35 SEC Sodium Level 136 135-145 MMOL/L Potassium Level 6.9 #*H 3.6-5.0 MMOL/L Chloride Level 89 L 98-107 MMOL/L Carbon Dioxide Level 14 L 21-32 MMOL/L Anion Gap 33 H 5-14 MMOL/L Blood Urea Nitrogen 125 *H 7-18 MG/DL Creatinine 11.57 H 0.60-1.30 MG/DL Estimat Glomerular Filtration Rate 5 BUN/Creatinine Ratio 11 Glucose Level 114 H 70-105 MG/DL Lactic Acid Level 4.39 *H 0.50-2.00 MMOL/L Calcium Level 10.0 8.5-10.1 MG/DL Corrected Calcium 9.7 8.5-10.1 MG/DL Total Bilirubin 0.6 0.1-1.0 MG/DL Aspartate Amino Transf (AST/SGOT) 25 5-34 U/L Alanine Aminotransferase (ALT/SGPT) 12 0-55 U/L Alkaline Phosphatase 134 40-136 U/L B-Type Natriuretic Peptide 14875.9 H <100.0 PG/ML Total Protein 8.9 H 6.4-8.2 GM/DL Albumin 4.4 3.2-4.5 GM/DL Serum Alcohol < 10 <10 MG/DL Blood Gas Puncture Site UNK UNK Blood Gas Patient Temperature 37.3 37.3 Arterial Blood pH 7.43 7.47 H 7.37-7.43 Arterial Blood Partial Pressure CO2 22 L 19 *L 35-45 MMHG Arterial Blood Partial Pressure O2 56 L 59 L 79-93 MMHG Arterial Blood HCO3 14 *L 13 *L 23-27 MMOL/L Arterial Blood Total CO2 14.5 L 13.8 L 21.0-31.0 MMOL/L Arterial Blood Oxygen Saturation 86 L 91 L 94-100 % Arterial Blood Base Excess -9.6 L -9.9 L -2.5-2.5 MMOL/L Michael Test UNK UNK Blood Gas Ventilator Setting NO NO Blood Gas Inspired Oxygen 2 L N/A Test 09/26/21 17:45 09/26/21 19:51 09/26/21 20:22 09/26/21 22:15 Range/Units Lactic Acid Level 4.20 *H 4.04 *H 0.50-2.00 MMOL/L Sodium Level 134 L 135-145 MMOL/L Potassium Level 6.2 H 3.6-5.0 MMOL/L Chloride Level 90 L 98-107 MMOL/L Carbon Dioxide Level 14 L 21-32 MMOL/L Anion Gap 30 H 5-14 MMOL/L Blood Urea Nitrogen 125 *H 7-18 MG/DL Creatinine 11.71 H 0.60-1.30 MG/DL Estimat Glomerular Filtration Rate 4 BUN/Creatinine Ratio 11 Glucose Level 131 H 70-105 MG/DL Calcium Level 9.8 8.5-10.1 MG/DL Urine Color YELLOW Urine Clarity CLEAR Urine pH 7.5 5-9 Urine Specific Driver 1.010 L 1.016-1.022 Urine Protein 3+ H NEGATIVE Urine Glucose (UA) NEGATIVE NEGATIVE Urine Ketones NEGATIVE NEGATIVE Urine Nitrite NEGATIVE NEGATIVE Urine Bilirubin NEGATIVE NEGATIVE Urine Urobilinogen 0.2 < = 1.0 MG/DL Urine Leukocyte Esterase NEGATIVE NEGATIVE Urine RBC (Auto) 1+ H NEGATIVE Urine RBC 2-5 H /HPF Urine WBC NONE /HPF Urine Squamous Epithelial Cells 5-10 /HPF Urine Crystals NONE /LPF Urine Bacteria MODERATE H /HPF Urine Casts NONE /LPF Urine Mucus NEGATIVE /LPF Urine Culture Indicated CULTURE PENDING Urine Opiates Screen NEGATIVE NEGATIVE Urine Oxycodone Screen NEGATIVE NEGATIVE Urine Methadone Screen NEGATIVE NEGATIVE Urine Propoxyphene Screen NEGATIVE NEGATIVE Urine Barbiturates Screen NEGATIVE NEGATIVE Ur Tricyclic Antidepressants Screen NEGATIVE NEGATIVE Urine Phencyclidine Screen NEGATIVE NEGATIVE Urine Amphetamines Screen NEGATIVE NEGATIVE Urine Methamphetamines Screen NEGATIVE NEGATIVE Urine Benzodiazepines Screen NEGATIVE NEGATIVE Urine Cocaine Screen NEGATIVE NEGATIVE Urine Cannabinoids Screen NEGATIVE NEGATIVE (BERRY PALMA MD) My Orders Orders - BERRY PALMA MD Basic Metabolic Panel (09/26/21 18:48) Hydralazine Injection (Apresoline Inject (09/26/21 20:15) Catheter(Urinary) Insert & Ass 03,15 (09/26/21 20:25) Amlodipine Tablet (Norvasc Tablet) (09/26/21 21:15) Hydrocodone/Apap 5/325 Tablet (Lortab 5 (09/26/21 22:45) (BERRY PALMA MD) Medications Given in ED Current Medications Medications Dose Ordered Sig/Poly Route Start Time Stop Time Status Last Admin Dose Admin Amlodipine Besylate 10 mg ONCE ONCE PO 09/26/21 21:15 09/26/21 21:20 DC 09/26/21 21:25 10 MG Calcium Gluconate/ Sodium Chloride 100 ml @ 120 mls/hr ONCE ONCE IV 09/26/21 16:45 09/26/21 17:34 DC 09/26/21 18:14 120 MLS/HR Fentanyl Citrate 25 mcg ONCE ONCE IVP 09/26/21 16:00 09/26/21 16:05 DC 09/26/21 16:07 25 MCG Hydralazine HCl 10 mg ONCE ONCE IV 09/26/21 20:15 09/26/21 20:16 DC 09/26/21 20:14 10 MG Sodium Chloride 500 ml @ 0 mls/hr Q0M ONCE IV 09/26/21 16:00 09/26/21 16:04 DC 09/26/21 18:18 500 MLS/HR (BERRY PALMA MD) Vital Signs/I&O 09/26/21 09/26/21 09/26/21 09/26/21 16:00 16:56 17:04 17:11 Temp 37.2 Pulse 99 Resp 24 B/P (MAP) 194/113 (140) Pulse Ox 96 98 98 95 O2 Delivery Room Air 09/26/21 18:34 Pulse 96 Pulse Ox 100 O2 Flow Rate 30.00 (BERRY PALMA MD) Vital Signs/I&O Capillary Refill : (DANI ROCKWELL) Progress Note #1: Time: 16:09 Progress Note Tachycardia, tachypnea, will initiate a septic work-up. We will get an ABG. He has a decent plethysmography with 95% on his right arm. He may benefit from some supplemental oxygen. Infection versus fluid overload due to missing his dialysis. We will hold off any IV fluids or antibiotics until we see some results. We will going get a swab for COVID and chest x-ray. 25 mcg of fentanyl for his pain so we do not suppress his respiratory status. We will get some x-rays of his right hip and his left femur where he is having tenderness to palpation. CT of the head and C-spine. Progress Note #2: Time: 17:05 Progress Note ABG repeated to demonstrate authenticity. Suspect he is hypoxic based on these findings and will put him on some oxygen. We will give him 3 kuvx-ba-fchh albuterol treatments, a gram of calcium gluconate and 500 cc of saline. We will give him 5 units of regular insulin and start some D5 at 100 mL an hour. Progress Note #3: Time: 18:16 Progress Note Shortness of air is down to PE, pneumonia or fluid overload but since he has a little bit of edema in the lungs elevated BNP and has missed 2 rounds of hemodialysis I suspect is more likely he is in fluid overload. Holding off on excessive fluids and since he has had no fever no white count he probably will not need any more antibiotics at this time. On 2 L he is maintaining oxygen saturations 100%. CPAP may be beneficial since he still breathing fast. (DANI ROCKWELL) Progress Note #1: Time: 20:17 Progress Note Care of this patient was assumed from Dr. Rockwell at [facility]. Spoke with Dr. Gery, hospitalist at [facility] in [place]. He accepts transfer. However, the transfer center reports no bed availability until discharges tomorrow. Ideally patient should be transferred prior to that time so that he can have dialysis no later than tomorrow morning given his hyperkalemia. Potassium did improve with measures taken earlier. Repeat labs shows a potassium of 6.2. Patient has requested transfer to [facility] since there is no bed availability at either [facility] or [place]. [facility] also does not have bed availability. Patient remains significantly hypertensive with systolic blood pressures intermittently greater than 200. Hydralazine 10 mg IV is being administered. We may also give him his usual oral medications which he has not taken yet today. Patient's lungs are clear on reexamination. I have also reexamined his left hip. He is rather tender over the lateral greater trochanter raising the question of bursitis. He does not have any pain with rotation of the hip. There is a small bruise superior to the anterior edge of the iliac crest. This bruise is mildly tender as well. CT of the pelvis was viewed by me and report reviewed. No fractures were identified. Hull catheter is being placed to monitor urine output (he makes very little urine) and to obtain urine specimen for culture. Progress Note #2: Time: 21:08 Progress Note [facility] was on diversion for telemetry beds. The [facility] hospital system has a bed available in [facility]. I discussed the case with Elina Osuna, midlevel provider for the excepting physician Dr. Fish. Transfer was accepted and we are awaiting bed assignment. The hydralazine did not seem to improve his blood pressure. I will administer his usual dose of amlodipine 10 mg. He additionally takes doxazosin 4 mg which we may add if needed. I will offer a hydrocodone for his hip pain. (BERRY PALMA MD) ECG Initial ECG Impression Date: Sep 26, 2021 Initial ECG Impression Time: 16:06 Initial ECG Rate: 97 Initial ECG Rhythm: Normal Sinus Initial ECG Intervals: QT (456) Initial ECG Impression: Normal Comment Normal sinus rhythm without clinically relevant ST elevation or depression. (DANI ROCKWELL) Diagnostic Imaging Diagonstic Imaging: Xray Plain Films/CT/US/NM/MRI: chest Comments [facility] [place] NAME: ACE ROSENTHAL [facility] REC#: [id number] PT STATUS: REG ER : 1960 PHYSICIAN: DANI ROCKWELL MD ADMIT DATE: 09/26/21/ER Draft Date of Exam:09/26/21 CHEST 1 VIEW, AP/PA ONLY EXAMINATION: Chest 1 view. HISTORY: Fall. COMPARISON: 09/18/2021. FINDINGS: There are mild to moderate interstitial opacities. Lungs are hyperinflated. No pneumothorax. Heart is mildly enlarged. Median sternotomy wires are aligned. IMPRESSION: Mild to moderate interstitial opacities with enlarged heart suggestive of edema. Dictated on workstation # [id number] Dict: 09/26/21 180 Trans: 09/26/211806 [facility] [id number] Interpreted by: TAYLOR GIFFORD MD Electronically signed by: Reviewed: Reviewed by Me Diagonstic Imaging: Xray Plain Films/CT/US/NM/MRI: hip (r) Comments Malrotated but no acute fracture noted on 2 view film. [facility] [place] NAME: ACE ROSENTHAL [facility] REC#: [id number] PT STATUS: REG ER : 1960 PHYSICIAN: DANI ROCKWELL MD ADMIT DATE: 09/26/21/ER Draft Date of Exam:09/26/21 HIP, RIGHT, 2 VIEWS EXAMINATION: Right hip unilateral 2 or 3 views (w/pelvis when done). HISTORY: Hip injury. COMPARISON: 04/14/2011. FINDINGS: Alignment is normal. No fracture is seen. Joint spaces are normal. IMPRESSION: No fracture. Dictated on workstation # [id number] Dict: 09/26/21 1805 Trans: 09/26/211805 [facility] [id number] Interpreted by: TAYLOR GIFFORD MD Electronically signed by: Reviewed: Reviewed by Diagonstic Imaging: Xray Plain Films/CT/US/NM/MRI: femur (l) Comments No acute osseous fracture. [facility] [place] NAME: ACE ROSENTHAL [facility] REC#: [id number] PT STATUS: REG ER : 1960 PHYSICIAN: DANI ROCKWELL MD ADMIT DATE: 09/26/21/ER Draft Date of Exam:09/26/21 FEMUR, LEFT, 2 VIEWS INDICATION: Leg pain. EXAMINATION: Left femur, 09/26/2021. FINDINGS: 4 views of the femur. There is no acute fracture or dislocation. Joint spaces maintained. There are clips in the scrotal region with a clip in the posterior medial aspect of the distal thigh. IMPRESSION: No acute osseous abnormality. Dictated on workstation # [id number] Dict: 09/26/21 180 Trans: 09/26/211809 [facility] [id number] Interpreted by: GAYLE MERRILL MD Electronically signed by: Reviewed: Reviewed by Diagonstic Imaging: CT Plain Films/CT/US/NM/MRI: c-spine, head Comments [facility] [place] NAME: ACE ROSENTHAL [facility] REC#: [id number] PT STATUS: REG ER : 1960 PHYSICIAN: DANI ROCKWELL MD ADMIT DATE: 09/26/21/ER Draft Date of Exam:09/26/21 CT HEAD/CERVICAL SPINE WO INDICATION: Fell yesterday and today, now bilateral leg pain, right worse than left. Hit back of head with head and neck pain. EXAMINATION: CT brain and CT cervical spine, 09/26/2021. All CT scans use one or more of the following dose optimizing techniques: automated exposure control, MA and/or KvP adjustment based on patient size and exam type or iterative reconstruction. COMPARISON: 08/24/2021. FINDINGS: CT BRAIN: There is diffuse chronic ischemic disease in a periventricular and deep white matter distribution. The paranasal sinuses and left mastoid air cells clear. Minimal partial opacification of the right mastoid air cells is noted, age indeterminate. There are no calvarial fractures. IMPRESSION: Chronic findings as above with no acute intracranial process. CT CERVICAL SPINE: There is normal height and alignment of the vertebral bodies. An old fracture is seen along the posterior aspect of the spinous process at T1. No acute fracture is appreciated. The lung apices demonstrate chronic findings. The prevertebral soft tissues are unremarkable for acute abnormality. IMPRESSION: Chronic findings within the neck with no acute process appreciated. Dictated on workstation # [id number] Dict: 09/26/21 173 Trans: 09/26/211737 [facility] [id number] Interpreted by: GAYLE MERRILL MD Electronically signed by: Reviewed: Reviewed by Me Diagonstic Imaging: CT Plain Films/CT/US/NM/MRI: other (Thoracic lumbar spine) Comments [facility] [place] [place] NAME: ACE ROSENTHAL [facility] REC#: [id number] PT STATUS: REG ER : 1960 PHYSICIAN: DANI ROCKWELL MD ADMIT DATE: 09/26/21/ER Draft Date of Exam:09/26/21 CT THORACIC/LUMBAR SPINE WO INDICATION: Trauma, pain after fall. EXAMINATION: CT thoracic and lumbar spine, 09/26/2021. All CT scans use one or more of the following dose optimizing techniques: automated exposure control, MA and/or KvP adjustment based on patient size and exam type or iterative reconstruction. FINDINGS: CT THORACIC SPINE: There is chronic appearing irregularity posterior to the spinous process in the visualized lower cervical/upper thoracic spine. Vertebral body heights appear maintained. There are no subluxation or compression deformities. No other fracture is identified. There are small to moderate bilateral pleural effusions. Diffusely coarsened interstitial markings noted throughout the lungs which have the appearance of chronic interstitial disease with emphysematous changes noted in the apices. There is bibasilar dependent atelectasis versus infiltrate. Atherosclerotic disease is noted. Mildly prominent lymph nodes noted within the mediastinum specifically subcarinal in nature. IMPRESSION: 1. No acute osseous abnormality. 2. Bilateral pleural effusions with diffuse chronic interstitial changes in the lungs and bibasilar atelectasis versus infiltrate. 3. Lymphadenopathy in the mediastinum which is likely reactive but should be followed to assure resolution. CT LUMBAR SPINE: There is normal height and alignment of the vertebral bodies with no fracture or subluxation appreciated. No significant central stenosis is appreciated. The visualized intra-abdominal soft tissues are unremarkable for an acute abnormality. Atherosclerotic disease is seen. IMPRESSION: No acute osseous abnormality with incidental findings as above. Dictated on workstation # [id number] Dict: 09/26/21 1746 Trans: 09/26/211801 [facility] [id number] Interpreted by: GAYLE MERRILL MD Electronically signed by: Reviewed: Reviewed by Me (DANI ROCKWELL) Diagonstic Imaging: CT Plain Films/CT/US/NM/MRI: pelvis Comments CT pelvis viewed by me and report reviewed. See report below: NAME: ACE ROSENTHAL [facility] REC#: [id number] PT STATUS: REG ER : 1960 PHYSICIAN: DANI ROCKWELL MD ADMIT DATE: 09/26/21/ER Draft Date of Exam:09/26/21 CT PELVIS WO INDICATION: Right hip pain status post fall. EXAMINATION: CT pelvis without contrast, 09/26/2021. All CT scans use one or more of the following dose optimizing techniques: automated exposure control, MA and/or KvP adjustment based on patient size and exam type or iterative reconstruction. COMPARISON: 09/18/2021. FINDINGS: There is motion artifact limiting evaluation of the inferior pubic rami. No obvious fractures in the region appreciated. Within the remaining pelvis and proximal femurs no obvious acute fracture is appreciated. No dislocation. The hip joint spaces maintained. The visualized intrapelvic structures demonstrate diverticular disease without evidence for acute diverticulitis. IMPRESSION: No acute fracture is appreciated; however, there is motion artifact limiting evaluation of the proximal femurs and inferior pubic rami. If there is continued pain or patient cannot bear weight, MRI could evaluate for edema. Dictated on workstation # [id number] Dict: 09/26/211903 Trans: 09/26/211912 [facility] [id number] Interpreted by: GAYLE MERRILL MD (BERRY PALMA MD) Departure Impression Primary Impression: Fall Qualified Codes: W19.XXXA - Unspecified fall, initial encounter Additional Impressions: ESRD needing dialysis Hyperkalemia Left hip pain Disposition: T-[facility] Condition: Stable Transfer Transfer Reason: Exceeds level of care (no inpt HD) Transfer Progress Notes [place] [facility]: Spoke to triage personnel and they will call us back with a provider. Method of Transfer: EMS (DANI ROCKWELL) Transfer Progress Notes [facility] and [facility] round diversion. Jeanine Montes was not able to get him a bed until after discharges tomorrow. [facility] was also on diversion. [facility] secured a bed at the [facility]. Patient was excepted to Dr. Fish Transfer Time: 22:34 Transfer Facility: [facility] (BERRY PALMA MD) Departure-Patient Inst. Referrals: MICHEL ROSALES MD (PCP) Primary Care Physician DANI ROCKWELL Sep 26, 2021 16:04 BERRY PALMA MD Sep 26, 2021 20:22
[2021-09-26 16:19] LABS: BASOPHILS # (AUTO) 0.1 10^3/uL (0.0-0.1); BASOPHILS % (AUTO) 1 % (0-10); EOSINOPHILS % (AUTO) 0 % (0-10); HEMATOCRIT 30 % (40-54); HEMOGLOBIN 9.7 g/dL (13.3-17.7); LYMPHOCYTES # (AUTO) 0.7 10^3/uL (1.0-4.0); LYMPHOCYTES % (AUTO) 7 % (12-44); MEAN CORPUSCULAR HEMOGLOBIN 28 pg (25-34); MEAN CORPUSCULAR HGB CONC 32 g/dL (32-36); MEAN CORPUSCULAR VOLUME 88 fL (80-99); MEAN PLATELET VOLUME 9.2 fL (9.0-12.2); MONOCYTES # (AUTO) 0.7 10^3/uL (0.0-1.0); MONOCYTES % (AUTO) 7 % (0-12); NEUTROPHILS # (AUTO) 8.8 10^3/uL (1.8-7.8); NEUTROPHILS % (AUTO) 85 % (42-75); PLATELET COUNT 340 10^3/uL (130-400); WHITE BLOOD COUNT 10.3 10^3/uL (4.3-11.0)
[2021-09-26 16:32] LABS: ALBUMIN 4.4 GM/DL (3.2-4.5); CHLORIDE 89 MMOL/L (98-107); SODIUM 136 MMOL/L (135-145)
[2021-09-26 16:35] LABS: GLUCOSE 114 MG/DL (70-105); PROTHROMBIN TIME PATIENT 13.9 SEC (12.2-14.7); TOTAL PROTEIN 8.9 GM/DL (6.4-8.2)
[2021-09-26 16:36] LABS: CARBON DIOXIDE 14 MMOL/L (21-32)
[2021-09-26 16:37] LABS: BILIRUBIN,TOTAL 0.6 MG/DL (0.1-1.0)
[2021-09-26 16:38] LABS: ALKALINE PHOSPHATASE 134 U/L (40-136)
[2021-09-26 16:38] LABS: ABG BASE EXCESS -9.6 MMOL/L (-2.5-2.5); ABG OXYGEN SATURATION 86 % (94-100); ABG PCO2 22 MMHG (35-45); ABG PH 7.43 (7.37-7.43); ABG PO2 56 MMHG (79-93); ABG TCO2 14.5 MMOL/L (21.0-31.0)
[2021-09-26 16:39] LABS: CREATININE SERUM 11.57 MG/DL (0.60-1.30); GFR ESTIMATED 5
[2021-09-26 16:40] LABS: BUN/CREATININE RATIO 11
[2021-09-26 16:41] LABS: INSPIRED O2 2 L
[2021-09-26 16:41] LABS: ALANINE AMINOTRANSFERASE 12 U/L (0-55)
[2021-09-26 16:42] LABS: PATIENT TEMP 37.3; VENTILATOR NO
[2021-09-26 16:42] LABS: POTASSIUM 6.9 MMOL/L (3.6-5.0)
[2021-09-26] MEDS ORDERED: RT-ALBUTEROL SULF 2.5 MG/3 ML PRE-MIX VIAL INH STA (16:44)
[2021-09-26] MEDS ORDERED: CALC GLUC 1 GM/100 ML IVPB 100 ML IV ONE (16:45)
[2021-09-26 16:58] LABS: ATYPICAL LYMPHOCYTES 1 %; LYMPHOCYTES % (MANUAL) 8 %; MONOCYTES % (MANUAL) 4 %; NEUTROPHILS % (MANUAL) 87 %
[2021-09-26 16:58] LABS: ABG BASE EXCESS -9.9 MMOL/L (-2.5-2.5); ABG OXYGEN SATURATION 91 % (94-100); ABG PH 7.47 (7.37-7.43); ABG PO2 59 MMHG (79-93); ABG TCO2 13.8 MMOL/L (21.0-31.0)
[2021-09-26 16:59] LABS: POIKILOCYTOSIS SLIGHT
[2021-09-26 17:00] LABS: ABG PCO2 19 MMHG (35-45); PATIENT TEMP 37.3; VENTILATOR NO
[2021-09-26] MEDS ORDERED: inSUlin (REGULAR) HUMAN 1 UNIT/0.01 ML (CHARGE PER UNIT) SC SCH (17:00)
[2021-09-26] MEDS ORDERED: D5 NS 1000 ML IV SOLUTION 1,000 ML IV SCH (17:00)
--- NOTE | 2021-09-26 17:39 | Diagnostic Imaging Report ---
INDICATION: Fell yesterday and today, now bilateral leg pain, right worse than left. Hit back of head with head and neck pain. EXAMINATION: CT brain and CT cervical spine, 09/26/2021. All CT scans use one or more of the following dose optimizing techniques: automated exposure control, MA and/or KvP adjustment based on patient size and exam type or iterative reconstruction. COMPARISON: 08/24/2021. FINDINGS: CT BRAIN: There is diffuse chronic ischemic disease in a periventricular and deep white matter distribution. The paranasal sinuses and left mastoid air cells clear. Minimal partial opacification of the right mastoid air cells is noted, age indeterminate. There are no calvarial fractures. IMPRESSION: Chronic findings as above with no acute intracranial process. CT CERVICAL SPINE: There is normal height and alignment of the vertebral bodies. An old fracture is seen along the posterior aspect of the spinous process at T1. No acute fracture is appreciated. The lung apices demonstrate chronic findings. The prevertebral soft tissues are unremarkable for acute abnormality. IMPRESSION: Chronic findings within the neck with no acute process appreciated. Dictated by: Dictated on workstation # [id number]
--- NOTE | 2021-09-26 18:02 | Diagnostic Imaging Report ---
INDICATION: Trauma, pain after fall. EXAMINATION: CT thoracic and lumbar spine, 09/26/2021. All CT scans use one or more of the following dose optimizing techniques: automated exposure control, MA and/or KvP adjustment based on patient size and exam type or iterative reconstruction. FINDINGS: CT THORACIC SPINE: There is chronic appearing irregularity posterior to the spinous process in the visualized lower cervical/upper thoracic spine. Vertebral body heights appear maintained. There are no subluxation or compression deformities. No other fracture is identified. There are small to moderate bilateral pleural effusions. Diffusely coarsened interstitial markings noted throughout the lungs which have the appearance of chronic interstitial disease with emphysematous changes noted in the apices. There is bibasilar dependent atelectasis versus infiltrate. Atherosclerotic disease is noted. Mildly prominent lymph nodes noted within the mediastinum specifically subcarinal in nature. IMPRESSION: 1. No acute osseous abnormality. 2. Bilateral pleural effusions with diffuse chronic interstitial changes in the lungs and bibasilar atelectasis versus infiltrate. 3. Lymphadenopathy in the mediastinum which is likely reactive but should be followed to assure resolution. CT LUMBAR SPINE: There is normal height and alignment of the vertebral bodies with no fracture or subluxation appreciated. No significant central stenosis is appreciated. The visualized intra-abdominal soft tissues are unremarkable for an acute abnormality. Atherosclerotic disease is seen. IMPRESSION: No acute osseous abnormality with incidental findings as above. Dictated by: Dictated on workstation # [id number]
[2021-09-26] MEDS ORDERED: NS IV 500 ML 500 ML ONE (18:05)
[2021-09-26] MEDS ORDERED: inSUlin (REGULAR) HUMAN 1 UNIT/0.01 ML (CHARGE PER UNIT) ONE (18:06)
--- NOTE | 2021-09-26 18:07 | Diagnostic Imaging Report ---
EXAMINATION: Right hip unilateral 2 or 3 views (w/pelvis when done). HISTORY: Hip injury. COMPARISON: 04/14/2011. FINDINGS: Alignment is normal. No fracture is seen. Joint spaces are normal. IMPRESSION: No fracture. Dictated by: Dictated on workstation # [id number]
--- NOTE | 2021-09-26 18:07 | Diagnostic Imaging Report ---
EXAMINATION: Chest 1 view. HISTORY: Fall. COMPARISON: 09/18/2021. FINDINGS: There are mild to moderate interstitial opacities. Lungs are hyperinflated. No pneumothorax. Heart is mildly enlarged. Median sternotomy wires are aligned. IMPRESSION: Mild to moderate interstitial opacities with enlarged heart suggestive of edema. Dictated by: Dictated on workstation # [id number]
--- NOTE | 2021-09-26 18:11 | Diagnostic Imaging Report ---
INDICATION: Leg pain. EXAMINATION: Left femur, 09/26/2021. FINDINGS: 4 views of the femur. There is no acute fracture or dislocation. Joint spaces maintained. There are clips in the scrotal region with a clip in the posterior medial aspect of the distal thigh. IMPRESSION: No acute osseous abnormality. Dictated by: Dictated on workstation # [id number]
[2021-09-26 18:34] VITALS: BP 200/116
--- NOTE | 2021-09-26 19:15 | Diagnostic Imaging Report ---
INDICATION: Right hip pain status post fall. EXAMINATION: CT pelvis without contrast, 09/26/2021. All CT scans use one or more of the following dose optimizing techniques: automated exposure control, MA and/or KvP adjustment based on patient size and exam type or iterative reconstruction. COMPARISON: 09/18/2021. FINDINGS: There is motion artifact limiting evaluation of the inferior pubic rami. No obvious fractures in the region appreciated. Within the remaining pelvis and proximal femurs no obvious acute fracture is appreciated. No dislocation. The hip joint spaces maintained. The visualized intrapelvic structures demonstrate diverticular disease without evidence for acute diverticulitis. IMPRESSION: No acute fracture is appreciated; however, there is motion artifact limiting evaluation of the proximal femurs and inferior pubic rami. If there is continued pain or patient cannot bear weight, MRI could evaluate for edema. Dictated by: Dictated on workstation # [id number]
[2021-09-26 20:09] LABS: POTASSIUM 6.2 MMOL/L (3.6-5.0)
[2021-09-26 20:10] LABS: CALCIUM 9.8 MG/DL (8.5-10.1)
[2021-09-26 20:14] LABS: CREATININE SERUM 11.71 MG/DL (0.60-1.30)
[2021-09-26] MEDS ORDERED: hydrALAZINE (APESOLINE) 20 MG/ML VIAL IV ONE (20:15)
[2021-09-26 20:43] LABS: CLARITY,URINE CLEAR; COLOR,URINE YELLOW; GLUCOSE, URINE (UA) NEGATIVE (NEGATIVE); PH,URINE 7.5 (5-9); PROTEIN,URINE 3+ (NEGATIVE)
[2021-09-26 20:44] LABS: BACTERIA,URINE MODERATE /HPF; BILIRUBIN,URINE NEGATIVE (NEGATIVE); KETONES,URINE NEGATIVE (NEGATIVE); LEUKOCYTE ESTERASE ,URINE NEGATIVE (NEGATIVE); NITRITE,URINE NEGATIVE (NEGATIVE)
[2021-09-26 20:53] LABS: AMPHETAMINE SCREEN, URINE NEGATIVE (NEGATIVE); BARBITURATE SCREEN URINE NEGATIVE (NEGATIVE); BENZODIAZEPINES SCREEN URINE NEGATIVE (NEGATIVE); CANNABINOID SCREEN, URINE NEGATIVE (NEGATIVE); COCAINE SCREEN URINE NEGATIVE (NEGATIVE); METHADONE STAT NEGATIVE (NEGATIVE); OPIATE SCREEN URINE NEGATIVE (NEGATIVE); OXYCODONE STAT NEGATIVE (NEGATIVE); PROPOXYPHENE STAT NEGATIVE (NEGATIVE); TRICYCLIC ANTIDEPRESSANTS SCRE NEGATIVE (NEGATIVE)
[2021-09-26] MEDS ORDERED: amLODIPine 10 MG (NORVASC) TAB PO ONE (21:15)
[2021-09-26 22:38] VITALS: BP 184/106
[2021-09-26] MEDS ORDERED: HYDROcodone/APAP 5 MG/325 MG (LORTAB) TAB PO ONE (22:45)
== END 2021-09-26 22:40 | disposition short-term general hospital (02) ==
LOC: EDUNIT# 15:26 → ER 15:30
DX: M25.552 Pain in left hip (principal); M25.551 Pain in right hip; I13.2 Hypertensive heart and chronic kidney disease with heart failure and with stage 5 chronic kidney disease, or end stage renal disease; N18.6 End stage renal disease; I50.9 Heart failure, unspecified; D63.1 Anemia in chronic kidney disease; E87.5 Hyperkalemia; J44.9 Chronic obstructive pulmonary disease, unspecified; F17.210 Nicotine dependence, cigarettes, uncomplicated; Z99.2 Dependence on renal dialysis; Z91.15 Patient's noncompliance with renal dialysis; Z95.1 Presence of aortocoronary bypass graft; Z99.81 Dependence on supplemental oxygen; Z20.822 Contact with and (suspected) exposure to COVID-19; W19.XXXA Unspecified fall, initial encounter
CPT/HCPCS: 36415; 51702; 70450; 71045; 72125; 72128; 72131; 72192; 73502; 73552; 80048; 80053; 80306; 80320; 81000; 82805; 83605; 83880; 85007; 85027; 85610; 85730; 87040; 87088; 87636; 93005; 94640; 94660